=== PATIENT | male | born 1945 | race Caucasian/White ===

== ENCOUNTER 2020-03-14 16:41 | Inpatient (IN) | payer MEDICARE, OTHER, SELFPAY ==
[2020-03-14] VITALS (8 sets, daily range): BP systolic 98–128; BP diastolic 44–89; PULSE 64–79; RESP 17–20; TEMP 36.7–37.9; O2SAT 96–100; BMI 26.8
--- NOTE | ~2020-03-14 | US_ITS ---
EXAMINATION: US venous doppler [facility] EXAM DATE: 03/14/2020 18:23 INDICATION: Left leg pain. TECHNIQUE: Multiple grayscale, color flow and Doppler images of the left lower extremity deep venous system were obtained and reviewed. There is no prior study for comparison. FINDINGS: The left common femoral, femoral and profunda veins demonstrate normal color flow, respirat ory variation, augmentation and compressibility. Compressibility, color flow confirmed within the le ft popliteal, posterior tibial, peroneal, and greater saphenous veins. IMPRESSION: 1. No left lower extremity deep venous thrombosis. Reviewed, dictated and finalized at location A.
--- NOTE | ~2020-03-14 | XR_ITS ---
EXAMINATION: XR ankle LT min 3V EXAM DATE: 03/14/2020 17:17 INDICATION: Initial encounter following injury, with pain of the left ankle. Dog bite. TECHNIQUE: Left ankle frontal, lateral and oblique projections obtained and reviewed. There is no pr ior study for comparison. FINDINGS: The left ankle mortise appears intact. There are no acute fractures or dislocations ident ified. There is no subcutaneous gas. There is soft tissue swelling over the lateral malleolus. There are arterial calcifications, arteriosclerosis. There are no radiopaque foreign bodies. IMPRESSION: 1. Left ankle exam without acute osseous findings. 2. Soft tissue swelling. Reviewed, dictated and finalized at location A.
--- NOTE | 2020-03-14 17:43 | ED.LOWEXIN ---
HPI - Extremity Injury (Lower) General Chief Complaint: Extremity Injury, Lower Stated Complaint: ANKLE PAIN Time Seen by Provider: 03/14/20 16:45 Source: RN notes reviewed History of Present Illness HPI Narrative: Patient presents emergency department from home for left leg pain. Patient has a history dementia his history is per patient and . The patient was at home with his last night the patient got scratched and bit by the dogs in the left lower extremity. This morning the patient's noted the patient was having tenderness and swelling as well as mild erythema of the left lateral ankle patient was unable to stand on the ankle secondary to the pain. She is unsure if she was injured in the episode she states patient is had no fevers or chills numbness or tingling in extremities or any other symptoms. Patient states that does not hurt to move his ankle but hurts when you touch the lateral aspect of the ankle. The patient is up-to-date on his tetanus per the Related Data Home Medications Medication Instructions Recorded Confirmed Eliquis 03/14/20 atorvastatin 40 mg PO HS 03/14/20 donepezil 10 mg PO HS 03/14/20 ketoconazole 1 applic TOPICAL DAILY 03/14/20 memantine 10 mg PO BID 03/14/20 metoprolol succinate 25 mg PO DAILY 03/14/20 sertraline 50 mg PO DAILY 03/14/20 triamcinolone acetonide 1 applic TOPICAL BID 03/14/20 Allergies Allergy/AdvReac Type Severity Reaction Status Date / Time Penicillins Allergy Rash Verified 03/14/20 16:57 Review of Systems Review of Systems: Narrative: Gen.: Denies fevers or chills ENT: Denies congestion Respiratory: Denies shortness of breath or cough CV: Denies chest pain or palpitations GI: Denies abdominal pain nausea, emesis or diarrhea d patient's states the patient's urine has been dark Musculoskeletal: See HPI Neuro: Denies numbness, tingling, weakness or focal weakness Skin: Denies rash Except as documented, all other systems reviewed and negative [facility] Past Medical History Medical History (Updated 03/14/20 @ 18:56 by Brooks Aldana DO) Dementia Hypercholesterolemia Hypertension Social History Social History (Updated 03/14/20 @ 17:44 by Brooks Aldana DO) Smoking status: Former smoker Exam Narrative: Exam Narrative: APPEARANCE: No acute distress, nontoxic, resting in bed EYES: EOMI HEENT: Normocephalic, atraumatic, OMM RESPIRATORY: No respiratory distress Clear to auscultation bilaterally with no rhonchi wheezing or rales. CARDIOVASCULAR: Regular rate and rhythm without murmurs rubs or gallops. ABDOMINAL: Soft, nontender, nondistended, no rebound or guarding MUSCULOSKELETAl: Moves all extremities. No clubbing, cyanosis left lower extremity has several healing puncture wounds over the anterior and lateral lower ruano with mild erythema around the wounds extending down to the lateral ankle, dorsalis pedis pulse 2+, neurovascular intact, patient with no pain with movement of the ankle but tenderness with palpation palpation over the left lateral ankle NEURO: Awake and alert. Following commands, speech normal, no focal deficits SKIN:: Warm, dry. No rashes lesions or abrasions PSYCHIATRIC: Normal affect/mood, Course Course Emergency Course: Reviewed records patient is allergic to penicillin will start on imipenem for coverage at this time Discussed with URMILA Ridley for Dr. Kinney presentation work-up. Agrees with admission at this time Discussed with patient and family results of workup and diagnosis. Discussed need for admission. Patient and family understand and agree to current treatment plan Vital Signs Vital signs: Vital Signs Temperature 99.3 F 03/14/20 17:09 Pulse Rate 72 03/14/20 17:09 Respiratory Rate 18 03/14/20 17:09 Blood Pressure 98/44 L 03/14/20 17:09 Pulse Oximetry 96 03/14/20 17:09 Temperature 98.9 F 03/14/20 17:52 Pulse Rate 79 03/14/20 17:52 Respiratory Rate 18 03/14/20 17:52 B
[2020-03-14 17:48] LABS: Basophils Percent Auto 0.2 % (0.2-1.2); Eosinophils Percent Auto 0.3 % (0-4.4); Hematocrit 37.9 % (42.0-52.0); Hemoglobin 12.3 g/dL (14.0-18.0); Immature Granulocyte Absolute 0.06 K/mm3 (0.00-0.031); Immature Granulocyte Percent A 0.4 % (0-0.5); Lymphocytes Absolute Auto 0.66 K/mm3 (0.9-3.2); Lymphocytes Percent Auto 4.6 % (18.3-44.2); Mean Corpuscular HGB Conc 32.5 g/dl (32-36); Mean Corpuscular Hemoglobin 31.7 pg (26-34); Mean Corpuscular Volume 97.7 fl (80-100); Mean Platelet Volume 10.6 fl (7.4-10.4); Monocytes Absolute Auto 1.2 K/mm3 (0.1-0.6); Monocytes Percent Auto 8.2 % (2.6-8.5); Neutrophils Absolute Auto 12.2 K/mm3 (1.3-6.7); Neutrophils Percent Auto 86.3 % (45.5-73.1); Platelet Count Result 188 k/mm3 (150-375); Red Blood Count 3.88 M/mm3 (4.6-6.20); Red Cell Distribution Width 14.5 % (11.5-14.5); White Blood Count 14.2 K/mm3 (4.5-10.0)
--- NOTE | 2020-03-14 17:53 | PC.NURSE ---
Note patient shaking, feels warm to touch. VS retaken and pt remains afebrile. Preparing to straight cath patient.
[2020-03-14 18:00] LABS: Alanine Aminotransferase 34 U/L (4-50); Albumin Level 4.3 g/dL (3.5-5.1); Alkaline Phosphatase 79 U/L (38-126); Aspartate Amino Transferase 34 U/L (17-59); Bilirubin,Total 3.1 mg/dL (0.2-1.3); Blood Urea Nitrogen 29 mg/dL (9-20); Calcium 9.4 mg/dL (8.4-10.2); Carbon Dioxide 30 mmol/L (22-30); Chloride 100 mmol/L (98-107); Estimated CRCL calculation 59 ml/min; Estimated Glomerular Filt Rate > 60; Glucose 118 mg/dL (75-110); Potassium 4.1 mmol/L (3.4-5.0); Sodium 138 mmol/L (137-145)
[2020-03-14 18:15] LABS: Add Urine Microscopic? NO; Appearance Urine Clear (Clear); Bilirubin Urine Negative (Negative); Blood Urine Negative (Negative); Color Urine Yellow (Yellow); Glucose Urine UA Negative (Negative); Ketones Urine Negative (Negative); Leukocyte Esterase Ur Negative LEU/UL (Negative); Nitrate Urine Negative (Negative); Protein Urine Negative (Negative); Specific Grav Ur 1.026 (1.001-1.035); Urobilinogen Urine Negative mg/dL (<2.0)
[2020-03-14 19:08] LABS: Lactic Acid Reflex 1.8 mmol/L (0.7-2.1)
--- NOTE | 2020-03-14 19:22 | PC.NURSE ---
Antibiotic given. Bedside report to LORENZA Villanueva, to continue care.
--- NOTE | 2020-03-14 19:23 | PC.NURSE ---
Pt felt warm to touch, so a temp was checked by this nurse. MD Aldana aware of 100.3 oral temp, new orders given.
--- NOTE | 2020-03-14 20:31 | PC.NURSE ---
report called and given to accepting nurse around 2014, state states room is being clean will call when room is ready.
--- NOTE | 2020-03-14 20:32 | PC.NURSE ---
Jacquelin medication clarified with for accepting nurse, dose 5mg B.I.D.
--- NOTE | 2020-03-14 21:30 | ADMGEN ---
This patient, Ranjit Pettit, was admitted to 2 Medical Room 257-01. Patient/family oriented to hospital policies and general routines including ID bracelet, bed and alarms, visiting hours, pain management, procedures, bathroom and other care routines, personal items, smoking policy, room service/diet, and visiting hours. Valuables list has been completed. Information on how to activate the Rapid Response Team has been discussed. Patient/Family are encouraged to report perceived risks to care and to ask questions if they do not understand what they are told or what they should do.
[2020-03-14] MEDS: SODIUM CHLORIDE 0.9% IV 1,000 ML 80 ML IV CONT (21:43)
--- NOTE | 2020-03-14 23:16 | PM.IMHP ---
H&P: HPI History of Present Illness Chief complaint: Cellulitis left lower extremity Narrative: Ranjit Pettit is a 74 year old male who lives with his and has a history of dementia. The patient came to the emergency room today due to a dog bite to his left lower extremity. He is having a lot of pain to that left lower leg. His was here in the emergency room and gave most of the information when she was here. The patient has been having tenderness and swelling and mild erythema to the left lower ankle. The patient is unable to stand up and walk at this time. He had no fever chills. He is very confused. He is up-to-date on his tetanus shot. White count was noted to be 15.2. H&H is 12.3 and 37.9. MPV is 10.6. UA was negative. Venous Doppler was negative for DVT. X-ray of the left lower extremity was read by radiologist as left ankle exam without acute osseous findings. Soft tissue swelling. Patient was started on Primaxin. Because he is allergic to penicillins. Date of service 03/14/2020 Review of Systems Review of Systems: All systems reviewed & are unremarkable except as noted in HPI and below ROS unobtainable: Yes unobtainable due to mental status (He has a history of dementia. He is having difficulty answering the questi) Constitutional: Constitutional: Reports as per HPI and Reports no additional constitutional complaints Eyes: Eyes: Reports as per HPI and Reports no additional eye complaints ENT: Reports system reviewed and no additional complaints, except as documented and Reports Normal hearing present Cardiovascular: Cardiovascular: Reports no additional cardiovascular complaints Respiratory: Respiratory: Reports no additional respiratory complaints and Reports no additional respiratory complaints Gastrointestinal: Gastrointestinal: Reports as per HPI and Reports no additional gastrointestinal complaints Musculoskeletal: Musculoskeletal: Reports no additional musculoskeletal complaints Integumentary/Breasts: Skin/Breast: Reports system reviewed and no additional complaints, except as docu and Reports as per HPI Neurologic: Reports system reviewed and no additional complaints, except as documented, Reports as per HPI and Reports Normal hearing present Psychiatric: Psychiatric: Reports no additional psychiatric complaints and Reports as per HPI Endocrine: Endocrine: Reports no additional endocrine complaints Hematologic/Lymphatic: Hematologic/Lymphatic: Reports no additional hematologic/lymphatic complaints Allergic/Immunologic: Allergic/Immunologic: Reports no additional allergic/immunologic complaints [facility] Past Medical History Medical History (Updated 03/14/20 @ 23:25 by Keyana Deal NP) Dementia Hypercholesterolemia Hypertension JACQUELIN on CPAP Surgical History Surgical History (Updated 03/14/20 @ 23:23 by Keyana Deal NP) Status post biventricular cardiac pacemaker insertion Family History Family History Other Unknown family medical history Social History Social History (Updated 03/14/20 @ 23:24 by Keyana Deal NP) Social History: He tells me that he lives with his . She is a durable power bankruptcy attorney for healthcare. He is a full code. He tells me that he has 2 children. He is retired but can't recall when he retired from. Denies any tobacco use or alcohol marijuana or illicit drugs. He is noted to be a full code. Smoking status: Never smoker Alcohol intake: never Substance use: never Gender identity (if verbalized by the patient): Male Spiritual care concerns: No Meds Home Medications and Allergies Home Medications Medication Instructions Recorded Confirmed Type Eliquis 5 mg PO BID 03/14/20 03/14/20 History atorvastatin 40 mg PO HS 03/14/20 03/14/20 History donepezil 10 mg PO HS 03/14/20 03/14/20 History ketoconazole 1 applic TOPICAL DAILY 03/14/20 03/14/20 History memantine 10 mg PO
[2020-03-14] MEDS: MELATONIN 5 MG TABLET PO (23:55)
[2020-03-14] MEDS: DONEPEZIL HCL 10 MG TABLET PO (23:55)
[2020-03-14] MEDS: ATORVASTATIN 40 MG TABLET PO (23:55)
--- NOTE | 2020-03-15 01:32 | PCRCNOTE ---
pt stated that he does use a home unit, but refused use of hospital unit. RT did not place a hospital unit in the room.
[2020-03-15 06:00] VITALS: BP 105/83; PULSE 62; RESP 20; TEMP 36.3; O2SAT 98
[2020-03-15 06:03] LABS: Basophils Percent Auto 0.3 % (0.2-1.2); Eosinophils Percent Auto 0.2 % (0-4.4); Hematocrit 34.2 % (42.0-52.0); Immature Granulocyte Absolute 0.11 K/mm3 (0.00-0.031); Immature Granulocyte Percent A 0.7 % (0-0.5); Lymphocytes Absolute Auto 0.89 K/mm3 (0.9-3.2); Lymphocytes Percent Auto 5.9 % (18.3-44.2); Mean Corpuscular HGB Conc 32.2 g/dl (32-36); Mean Corpuscular Hemoglobin 31.3 pg (26-34); Mean Corpuscular Volume 97.4 fl (80-100); Mean Platelet Volume 10.9 fl (7.4-10.4); Monocytes Absolute Auto 1.3 K/mm3 (0.1-0.6); Monocytes Percent Auto 8.8 % (2.6-8.5); Neutrophils Absolute Auto 12.7 K/mm3 (1.3-6.7); Neutrophils Percent Auto 84.1 % (45.5-73.1); Platelet Count Result 162 k/mm3 (150-375); Red Blood Count 3.51 M/mm3 (4.6-6.20); Red Cell Distribution Width 14.6 % (11.5-14.5); White Blood Count 15.1 K/mm3 (4.5-10.0)
[2020-03-15 06:16] LABS: Blood Urea Nitrogen 31 mg/dL (9-20); Calcium 8.7 mg/dL (8.4-10.2); Carbon Dioxide 28 mmol/L (22-30); Chloride 103 mmol/L (98-107); Estimated CRCL calculation 67 ml/min; Estimated Glomerular Filt Rate > 60; Glucose 117 mg/dL (75-110); Potassium 3.9 mmol/L (3.4-5.0); Sodium 134 mmol/L (137-145)
[2020-03-15 07:53] LABS: CRP 6.8 mg/dL (<1.0)
[2020-03-15] MEDS: MEMANTINE 10 MG TABLET PO ×2 (08:43→17:02)
[2020-03-15] MEDS: APIXABAN 5 MG TABLET PO ×2 (08:43→17:02)
[2020-03-15 08:44] VITALS: PULSE 64
[2020-03-15] MEDS: SERTRALINE HCL 50 MG TABLET PO (08:44)
[2020-03-15] MEDS: METOPROLOL SUCCINATE EXT REL 25 MG TABCR PO (08:44)
[2020-03-15] MEDS: SODIUM CHLORIDE 0.9% IV 1,000 ML 80 ML IV CONT ×2 (10:00→23:20)
--- NOTE | 2020-03-15 13:25 | PM.IMPN ---
Progress Note: A&P Assessment and Plan (1) Cellulitis of left leg: Code(s): L03.116 - Cellulitis of left lower limb Status: Acute Assessment and Plan: Left lower extremity with several small puncture wounds that appear to have scabbed, as well as erythema, edema, warmth, and tenderness. WBC is elevated at 15.1. CRP is elevated at 6.8. He had been febrile with T-max of 100.3?, however has been afebrile today. Initially it was reported that he was unable to bear weight on the left ankle, however he has been evaluated by PT and was able to walk with a wheeled walker. Continue Primaxin, initiated on 03/14. Patient is allergic to penicillins. Continue gentle IV fluids Continue acetaminophen as needed for fever and supportive care. Blood cultures are pending. Continue to monitor vitals, white count, and CRP. Continue PT and OT. Recommendations are appreciated. (2) Hypertension: Code(s): I10 - Essential (primary) hypertension Status: Chronic Assessment and Plan: Blood pressures have been evaluated and stable. Blood pressure today was 105/83. Continue with metoprolol (3) Hypercholesterolemia: Code(s): E78.00 - Pure hypercholesterolemia, unspecified Status: Chronic Assessment and Plan: Continue with Lipitor. (4) JACQUELIN on CPAP: Code(s): G47.33 - Obstructive sleep apnea (adult) (pediatric); Z99.89 - Dependence on other enabling machines and devices Status: Chronic Assessment and Plan: Patient has a history of JACQUELIN and uses CPAP regularly. Continue CPAP titrated to home settings. (5) Dementia: Code(s): F03.90 - Unspecified dementia without behavioral disturbance Status: Chronic Assessment and Plan: Patient has a history of dementia, however it is unclear what his typical baseline is. He lives at home with his . Today he is oriented to self only. He is slow to respond to questions and occasionally answers in a nonsensical manner. Continue with Aricept and Namenda. I attempted to speak to the patient's via phone to establish baseline, but have been able to reach her. Will continue to attempt. Subjective Date/time seen: 03/15/20 13:25 Interval history: Date of service: 03/15/2020 Mr. Pettit reports he is feeling well today. It is difficult to get information from him as he appears very confused. He does have baseline dementia but it is unclear what his typical level of orientation is. Today, he was oriented to self-only. He responded to my questions but occasionally his responses were nonsensical and he is very slow to respond. He could follow all commands. He denies any pain and states he is feeling in his usual state of health, however he did seem to have a painful response to light palpation of his LLE. Review of Systems Review of Systems: ROS unobtainable: Yes unobtainable due to mental status Exam Narrative: Exam Narrative: Mr. Pettit is examined alone today. He is a well nourished 74 year old male who is lying supine in bed. He appears comfortable and is in NARD. HR 64, BP 128/89, RR 20, T 98.1?, 99% on room air Neuro: awake, alert and oriented x1, slow to respond, speech clear, follows all commands, no focal neuro deficits noted HEENMT: normocephalic, atraumatic, EOMI, sclerae anicteric, moist oral mucosa Neck: supple, no lymphadenopathy Respiratory: clear to auscultation bilaterally, normal respiratory effort Cardio: regular rate, regular rhythm, normal S1 and S2 Abdomen: normal to inspection, nondistended, normoactive bowel sounds, soft, nontender : Wearing depends Extremities: LLE is edematous, erythematous, warm to palpation, and tender to light touch. There is a linear excoriation and several small, round, erythematous puncture wounds on the anterior aspect of the ruano. RLE without edema, erythema, or pain to palpation. BUE and BLE with full range of motion and strength 5/5. Dorsa
[2020-03-15 14:00] VITALS: BP 98/57; PULSE 59; RESP 19; TEMP 36.6; O2SAT 100
[2020-03-15] MEDS: FAMOTIDINE 20 MG/2 ML VIAL IV PUSH (21:23)
[2020-03-15] MEDS: DONEPEZIL HCL 10 MG TABLET PO (21:23)
[2020-03-15] MEDS: ATORVASTATIN 40 MG TABLET PO (21:23)
[2020-03-15] MEDS: MELATONIN 5 MG TABLET PO (21:23)
[2020-03-15 22:00] VITALS: BP 103/77; PULSE 70; RESP 20; TEMP 37; O2SAT 99
[2020-03-16 05:19] LABS: Basophils Percent Auto 0.3 % (0.2-1.2); Eosinophils Absolute Auto 0.1 K/mm3 (0-0.3); Eosinophils Percent Auto 0.5 % (0-4.4); Hematocrit 34.4 % (42.0-52.0); Hemoglobin 11.1 g/dL (14.0-18.0); Immature Granulocyte Absolute 0.09 K/mm3 (0.00-0.031); Immature Granulocyte Percent A 0.8 % (0-0.5); Lymphocytes Absolute Auto 0.69 K/mm3 (0.9-3.2); Lymphocytes Percent Auto 6.1 % (18.3-44.2); Mean Corpuscular HGB Conc 32.3 g/dl (32-36); Mean Corpuscular Hemoglobin 31.4 pg (26-34); Mean Corpuscular Volume 97.5 fl (80-100); Mean Platelet Volume 10.6 fl (7.4-10.4); Monocytes Percent Auto 9.1 % (2.6-8.5); Neutrophils Absolute Auto 9.4 K/mm3 (1.3-6.7); Neutrophils Percent Auto 83.2 % (45.5-73.1); Platelet Count Result 168 k/mm3 (150-375); Red Blood Count 3.53 M/mm3 (4.6-6.20); Red Cell Distribution Width 14.6 % (11.5-14.5); White Blood Count 11.3 K/mm3 (4.5-10.0)
[2020-03-16 05:54] LABS: Alanine Aminotransferase 45 U/L (4-50); Albumin Level 3.6 g/dL (3.5-5.1); Alkaline Phosphatase 92 U/L (38-126); Aspartate Amino Transferase 46 U/L (17-59); Bilirubin,Total 2.8 mg/dL (0.2-1.3); Blood Urea Nitrogen 25 mg/dL (9-20); Calcium 8.5 mg/dL (8.4-10.2); Carbon Dioxide 26 mmol/L (22-30); Chloride 103 mmol/L (98-107); Estimated CRCL calculation 85 ml/min; Estimated Glomerular Filt Rate > 60; Glucose 104 mg/dL (75-110); Potassium 3.7 mmol/L (3.4-5.0); Sodium 134 mmol/L (137-145)
[2020-03-16 06:00] VITALS: BP 105/54; PULSE 71; RESP 20; TEMP 36.4; O2SAT 98
[2020-03-16 08:00] VITALS: PULSE 71; RESP 20; O2SAT 98
[2020-03-16] MEDS: FAMOTIDINE 20 MG/2 ML VIAL IV PUSH ×2 (08:48→21:31)
[2020-03-16] MEDS: SODIUM CHLORIDE 0.9% IV 1,000 ML 80 ML IV CONT ×2 (08:51→21:32)
[2020-03-16] MEDS: SERTRALINE HCL 50 MG TABLET PO (08:51)
[2020-03-16] MEDS: METOPROLOL SUCCINATE EXT REL 25 MG TABCR PO (08:51)
[2020-03-16] MEDS: MEMANTINE 10 MG TABLET PO ×2 (08:51→16:34)
[2020-03-16] MEDS: APIXABAN 5 MG TABLET PO ×2 (08:51→16:34)
--- NOTE | 2020-03-16 13:43 | PCOTNOTE ---
Attempted to see patient this pm, however patient was confused and agitated using vulgar language at this time. Pt declined stating, I'm not gonna do it!
[2020-03-16 14:00] VITALS: BP 143/92; PULSE 74; RESP 19; TEMP 36.6; O2SAT 96
--- NOTE | 2020-03-16 16:50 | PM.IMPN ---
Progress Note: A&P Assessment and Plan (1) Cellulitis of left leg: Code(s): L03.116 - Cellulitis of left lower limb Status: Acute Assessment and Plan: Patient was bit by a dog on the left ankle. There are several puncture wounds secondary to the bite which have scabbed. The area is edematous, but much less erythematous and warm. WBC is 11.3. CRP is elevated at 11.0. He had been febrile with T-max of 100.3?, however has been afebrile today. He has good range of motion and is tolerating weight-bearing. Continue Primaxin, initiated on 03/14 given penicillin allergy. Plan to transition to oral doxycycline upon discharge, hopefully tomorrow. Continue gentle IV fluids Continue supportive care including acetaminophen, elevation, and ice. Preliminary blood cultures revealed no growth today. Await final cultures. Continue to monitor vitals, white count, and CRP. (2) Generalized weakness: Code(s): R53.1 - Weakness Status: Acute Assessment and Plan: Patient's reports he had been weakLately, most likely due to deconditioning as they have been stuck at home. initially reported that patient had difficulty with weight-bearing following ankle injury, however patient appears to be tolerating weight-bearing with no difficulty. Continue PT and OT. Recommendations are appreciated. Home health is being set up via care coordination, however there has been some difficulty with placing the referral through patient's PCP. Care coordination will continue to monitor this process. Hopeful discharge tomorrow pending home health arrangement. (3) Hypertension: Code(s): I10 - Essential (primary) hypertension Status: Chronic Assessment and Plan: Blood pressures have been evaluated and stable. Blood pressure today was 103/77. Continue with metoprolol (4) Hypercholesterolemia: Code(s): E78.00 - Pure hypercholesterolemia, unspecified Status: Chronic Assessment and Plan: Continue with Lipitor. (5) JACQUELIN on CPAP: Code(s): G47.33 - Obstructive sleep apnea (adult) (pediatric); Z99.89 - Dependence on other enabling machines and devices Status: Chronic Assessment and Plan: Patient has a history of JACQUELIN and uses CPAP regularly. Continue CPAP titrated to home settings. (6) Dementia: Code(s): F03.90 - Unspecified dementia without behavioral disturbance Status: Chronic Assessment and Plan: Patient has a history of dementia, however it is unclear what his typical baseline is. He lives at home with his . Today he is oriented to self only. He is slow to respond to questions and occasionally answers in a nonsensical manner. I spoke with his via telephone who tells me he is at baseline. Continue with Aricept and Namenda. Subjective Date/time seen: 03/16/20 16:50 Interval history: Date of service: 03/16/2020 Patient reports he is feeling well today and has no acute complaints. He is alert to self only and will respond to questions, although some responses are nonsensical. Per discussion with nursing staff, patient has been ambulating around the room and bearing weight without difficulty. He has been eating well. He has been urinating regularly. He has been sleeping well. He seems to be comfortable and overall, doing well. Review of Systems Review of Systems: Narrative: A 12 point review of systems was reviewed with pertinent positives and negatives as per HPI. Exam Narrative: Exam Narrative: Mr. Pettit is examined alone today. He is a well nourished 74 year old male who is sitting in the chair by the bedside. He appears comfortable and is in NARD. HR 70, BP 103/77, RR 20, T 98.6?, 99% on room air Neuro: awake, alert and oriented x1, slow to respond, speech clear, follows all commands, no focal neuro deficits noted HEENMT: normocephalic, atraumatic, EOMI, sclerae anicteric, moist ora
[2020-03-16] MEDS: ATORVASTATIN 40 MG TABLET PO (21:31)
[2020-03-16] MEDS: MELATONIN 5 MG TABLET PO (21:31)
[2020-03-16] MEDS: DONEPEZIL HCL 10 MG TABLET PO (21:31)
[2020-03-16 22:00] VITALS: BP 113/60; PULSE 66; RESP 21; TEMP 36.4; O2SAT 100
[2020-03-16 22:12] VITALS: PULSE 61; RESP 18; O2SAT 95
[2020-03-17 02:45] VITALS: PULSE 63; RESP 16; O2SAT 94
[2020-03-17 04:50] LABS: Basophils Percent Auto 0.3 % (0.2-1.2); Eosinophils Percent Auto 0.3 % (0-4.4); Hemoglobin 11.1 g/dL (14.0-18.0); Immature Granulocyte Absolute 0.04 K/mm3 (0.00-0.031); Immature Granulocyte Percent A 0.4 % (0-0.5); Lymphocytes Absolute Auto 0.67 K/mm3 (0.9-3.2); Lymphocytes Percent Auto 6.9 % (18.3-44.2); Mean Corpuscular HGB Conc 32.6 g/dl (32-36); Mean Corpuscular Hemoglobin 31.2 pg (26-34); Mean Corpuscular Volume 95.5 fl (80-100); Mean Platelet Volume 10.7 fl (7.4-10.4); Monocytes Absolute Auto 0.9 K/mm3 (0.1-0.6); Monocytes Percent Auto 8.7 % (2.6-8.5); Neutrophils Absolute Auto 8.2 K/mm3 (1.3-6.7); Neutrophils Percent Auto 83.4 % (45.5-73.1); Platelet Count Result 182 k/mm3 (150-375); Red Blood Count 3.56 M/mm3 (4.6-6.20); Red Cell Distribution Width 14.3 % (11.5-14.5); White Blood Count 9.8 K/mm3 (4.5-10.0)
[2020-03-17 05:08] LABS: Alanine Aminotransferase 38 U/L (4-50); Albumin Level 3.6 g/dL (3.5-5.1); Alkaline Phosphatase 93 U/L (38-126); Aspartate Amino Transferase 35 U/L (17-59); Bilirubin,Total 2.2 mg/dL (0.2-1.3); Blood Urea Nitrogen 18 mg/dL (9-20); CRP 6.4 mg/dL (<1.0); Calcium 8.5 mg/dL (8.4-10.2); Carbon Dioxide 25 mmol/L (22-30); Chloride 104 mmol/L (98-107); Estimated CRCL calculation 85 ml/min; Estimated Glomerular Filt Rate > 60; Glucose 117 mg/dL (75-110); Potassium 3.6 mmol/L (3.4-5.0); Sodium 134 mmol/L (137-145)
[2020-03-17 06:00] VITALS: BP 105/70; PULSE 62; RESP 20; TEMP 36.3; O2SAT 98
[2020-03-17 08:00] VITALS: PULSE 62; RESP 20; O2SAT 98
[2020-03-17] MEDS: FAMOTIDINE 20 MG/2 ML VIAL IV PUSH (08:11)
[2020-03-17] MEDS: MEMANTINE 10 MG TABLET PO (08:11)
[2020-03-17] MEDS: METOPROLOL SUCCINATE EXT REL 25 MG TABCR PO (08:11)
[2020-03-17] MEDS: APIXABAN 5 MG TABLET PO (08:11)
[2020-03-17] MEDS: SERTRALINE HCL 50 MG TABLET PO (08:11)
[2020-03-17] MEDS: SODIUM CHLORIDE 0.9% IV 1,000 ML 80 ML IV CONT (08:11)
--- NOTE | 2020-03-17 10:55 | PCOTNOTE ---
Attempted to see patient this am, however patient sleeping upon entering. Pt aroused and speaking non-sense then closed eyes and fell back asleep.
[2020-03-17] MEDS: ACETAMINOPHEN 325 MG TABLET 650 MG PO (13:41)
[2020-03-17 14:00] VITALS: BP 115/46; PULSE 88; RESP 18; TEMP 36.7; O2SAT 99
--- NOTE | 2020-03-17 14:11 | PM.DS ---
DS: Admitting Diagnosis Admitting Diagnosis Admitting Diagnosis: Cellulitis of left lower limb DS: Discharge Diagnosis Discharge Diagnosis (1) Cellulitis of left leg: Code(s): L03.116 - Cellulitis of left lower limb Status: Acute Assessment and Plan: Patient was bit by a dog on the left ankle. He was initiated on Primaxin given his penicillin allergy. His exam improved with noticeable reduction in edema, erythema and warmth. He had good range of motion and was able to tolerate weight-bearing. Fever and leukocytosis resolved. CRP improved. Preliminary blood cultures revealed NGTD and final cultures will be monitored. He will continue doxycycline as an outpatient to complete 10 days of antibiotic therapy. Patient was up-to-date on tetanus vaccine. (2) Generalized weakness: Code(s): R53.1 - Weakness Status: Acute Assessment and Plan: The patient's reported patient had become weaker lately, most likely related to deconditioning as he had been stuck at home during [employer]. He is evaluated by PT and OT and home health was recommended. Care coordination contacted [facility]'s PCP at the [facility] and this will be set up as an outpatient. (3) Hypertension: Code(s): I10 - Essential (primary) hypertension Status: Chronic Assessment and Plan: His blood pressures remain stable on his home dose of metoprolol. (4) Hypercholesterolemia: Code(s): E78.00 - Pure hypercholesterolemia, unspecified Status: Chronic Assessment and Plan: He will continue atorvastatin as an outpatient. (5) JACQUELIN on CPAP: Code(s): G47.33 - Obstructive sleep apnea (adult) (pediatric); Z99.89 - Dependence on other enabling machines and devices Status: Chronic Assessment and Plan: He used CPAP titrated to his home settings during his stay. He should continue using CPAP regularly as an outpatient. (6) Dementia: Code(s): F03.90 - Unspecified dementia without behavioral disturbance Status: Chronic Assessment and Plan: Per patient's , patient is typically oriented to self only, although he does have some fluctuations in his mental status. Patient remained at baseline during his stay. He will continue donepezil and memantine as an outpatient. DS: Summary Hospital Course Reason for hospitalization: Left ankle pain Hospital Course: Date of admission: 03/14/2020 Date of discharge: 03/17/2020 Ranjit Pettit is a 74-year-old male with a past medical history significant for hypertension, obstructive sleep apnea, and dementia who presented to the emergency department on 03/14/2020 with complaints of ankle pain after being bitten by his dog at home on 03/13/2020. Following the dog bite, the patient's noticed that he was having significant tenderness and swelling to his left ankle. The patient denied fever, chills, nausea, vomiting, numbness, or tingling to the area. His reported he was having some difficulty bearing weight on the extremity. At presentation, vitals were stable with the exception of fever with T-max 100.3?, WBC 14.2, ankle x-ray with no acute osseous findings and soft tissue swelling noted, and venous Doppler negative for DVT. He was admitted to the hospitalist service and was treated with IV antibiotics. The patient's exam improved significantly as did his labs. His pain resolved. He was evaluated by PT and OT given his pain with weight-bearing. Patient was able to bear weight, however home health was recommended given patient's generalized weakness. Given improvement in patient's symptoms, he was determined to no longer require inpatient care. He was transitioned to oral antibiotics which he will continue to complete a 10 day course. He was recommended to follow-up with his PCP in 1-2 weeks. He was educated on worrisome signs and symptoms for which to return. He was discharged home in hemodynamically stable condition
== END 2020-03-17 15:54 | disposition home health service (06) | DRG 603 ==
LOC: ANHED 18:56 → ANH2MED 19:48
PROVIDERS: Physician Assistant; Admitting Provider Family Medicine; Emergency Provider Emergency Medicine; Visit Provider Internal Medicine
DX: L03.116 Cellulitis of left lower limb (principal); S81.852A Open bite, left lower leg, initial encounter; W54.0XXA Bitten by dog, initial encounter; G47.33 Obstructive sleep apnea (adult) (pediatric); I10 Essential (primary) hypertension; E78.00 Pure hypercholesterolemia, unspecified; F03.90 Unspecified dementia, unspecified severity, without behavioral disturbance, psychotic disturbance, mood disturbance, and anxiety; Z79.01 Long term (current) use of anticoagulants
CPT/HCPCS: 36415; 51701; 73610; 80048; 80053; 81003; 83605; 85025; 86140; 87040; 93971; 96361; 96365; 96375; 97110; 97116; 97162; 97165; 97530; 97535; 99285; A9270; G0378; J0131; J0743; J7030

== ENCOUNTER 2020-07-16 19:29 | Emergency (ER) | payer MEDICARE, OTHER, SELFPAY ==
[2020-07-16] VITALS (9 sets, daily range): BP systolic 98–118; BP diastolic 54–81; PULSE 65–88; RESP 12–23; TEMP 36.2; O2SAT 73–100
--- NOTE | ~2020-07-16 | XR_ITS ---
XR chest 2V DATE: 07/16/2020 20:25 INDICATION: Lower extremity edema TECHNIQUE: AP and lateral views COMPARISON: None FINDINGS: Borderline heart size. Left-sided pacemaker device with leads overlying right atrium and ri ght ventricle. No hilar or mediastinal enlargement. There is mild atelectasis at the posterior lung bases at the lower lobes. The lungs are otherwise sunny ar. No pleural effusion or pulmonary vascular congestion or pneumothorax. IMPRESSION: Mild bibasilar lower lobe atelectasis Reviewed, dictated and finalized at location A.
--- NOTE | 2020-07-16 19:39 | ED.LOWEXIN ---
HPI - Extremity Injury (Lower) General Chief Complaint: Extremity Injury, Lower Stated Complaint: swollen legs Time Seen by Provider: 07/16/20 19:35 History of Present Illness HPI Narrative: 74 yo male w/ h/o a-fib, htn, presnets to the ED for LE swelling. He has had BLE swelling for several days. Initially just in the feet, now moving up the legs. His states that the feet and legs also appear to be more red. He denies any pain, but they are tender. He had the bilateral first toe toe nails removed 1 month ago and they are still not healed. He has never had this type of swelling before. No fever, chills, chest pain, SOB. Related Data Home Medications Medication Instructions Recorded Confirmed Eliquis 5 mg PO BID 03/14/20 03/14/20 atorvastatin 40 mg PO HS 03/14/20 03/14/20 donepezil 10 mg PO HS 03/14/20 03/14/20 ketoconazole 1 applic TOPICAL DAILY 03/14/20 03/14/20 memantine 10 mg PO BID 03/14/20 03/14/20 metoprolol succinate 25 mg PO DAILY 03/14/20 03/14/20 sertraline 50 mg PO DAILY 03/14/20 03/14/20 triamcinolone acetonide 1 applic TOPICAL BID 03/14/20 03/14/20 Allergies Allergy/AdvReac Type Severity Reaction Status Date / Time Penicillins Allergy Rash Verified 07/16/20 19:47 Review of Systems Review of Systems: All systems reviewed & are unremarkable except as noted in HPI and below Constitutional: Constitutional: Denies chills, Denies fever(s) and Denies weakness Cardiovascular: Cardiovascular: Denies chest pain Respiratory: Respiratory: Denies dyspnea Gastrointestinal: Gastrointestinal: Denies nausea Musculoskeletal: Musculoskeletal: Denies back pain Neurologic: Denies dizziness and Denies weakness PMFSH Past Medical History Medical History Dementia Hypercholesterolemia Hypertension JACQUELIN on CPAP Surgical History Surgical History Status post biventricular cardiac pacemaker insertion Family History Family History Other Unknown family medical history Social History Social History Social History: He tells me that he lives with his . She is a durable power set up inspector for healthcare. He is a full code. He tells me that he has 2 children. He is retired but can't recall when he retired from. Denies any tobacco use or alcohol marijuana or illicit drugs. He is noted to be a full code. Smoking status: Never smoker Alcohol intake: never Substance use: never Gender identity (if verbalized by the patient): Male Spiritual care concerns: No Exam Const: General: healthy appearing, no acute distress and alert Orientation/consciousness: patient oriented x3 HENMT: Head: normal to inspection Neck: Neck: normal visual inspection and no lymphadenopathy Chest: Chest palpation & inspection: no tenderness Resp: Effort & Inspection: normal respiratory effort Auscultation: clear to auscultation bilaterally, no rales, no rhonchi and no wheezes Cardio: Jugular venous distension: no JVD Rate: regular rate Rhythm: regular rhythm Heart sounds: no murmurs Other: weakly dopplerable bilateral PT pulses GI: Inspection: non-distended GI Palp: Yes Soft to palpation and No Tenderness to palpation present (GI) Skin: Other: Healing wounds to bilateral first toe nail beds with Mild erythema and tenderness of adjacent skin. Minimal posterior erythema of the bilateral lower legs. Neuro: General: patient oriented x3, moves all extremities and CN's II-XI intact bilaterally Speech: normal speech Extrem: Other: 2+ bilateral foot and ankle edema Psych: Appearance: well kempt Affect: normal affect Course Vital Signs Vital signs: Vital Signs Temperature 36.2 C L 07/16/20 19:31 Pulse Rate 71 07/16/20 19:31 Respiratory Rate 18 07/16/20 19:31 Blood Pressure 118/7
--- NOTE | 2020-07-16 19:52 | ECG_ITS ---
Measurements Intervals [place] Rate: 59 P: 206 NM: 75 QRS: -73 QRSD: 122 T: 93 QT: 513 QTc: 509 Interpretive Statements ELECTRONIC VENTRICULAR PACEMAKER WITH INHIBTION NO FURTHER INTERPRETATION IS POSSIBLE ATYPICAL ECG Electronically Signed On 07-17-2020 6:52:04 CDT by Monty Palumbo D.O.
[2020-07-16 20:15] LABS: Basophils Percent Auto 0.6 % (0.2-1.2); Eosinophils Absolute Auto 0.1 K/mm3 (0-0.3); Eosinophils Percent Auto 1.6 % (0-4.4); Hematocrit 38.3 % (42.0-52.0); Hemoglobin 12.1 g/dL (14.0-18.0); Immature Granulocyte Absolute 0.02 K/mm3 (0.00-0.031); Immature Granulocyte Percent A 0.3 % (0-0.5); Lymphocytes Percent Auto 17.2 % (18.3-44.2); Mean Corpuscular HGB Conc 31.6 g/dl (32-36); Mean Corpuscular Volume 98.2 fl (80-100); Mean Platelet Volume 11.6 fl (7.4-10.4); Monocytes Absolute Auto 0.5 K/mm3 (0.1-0.6); Monocytes Percent Auto 7.4 % (2.6-8.5); Neutrophils Absolute Auto 5.1 K/mm3 (1.3-6.7); Neutrophils Percent Auto 72.9 % (45.5-73.1); Platelet Count Result 159 k/mm3 (150-375); Red Cell Distribution Width 15.4 % (11.5-14.5)
[2020-07-16 20:25] LABS: Anion Gap 13 mmol/L (8-16); Blood Urea Nitrogen 29 mg/dL (9-20); Calcium 9.2 mg/dL (8.4-10.2); Carbon Dioxide 25 mmol/L (22-30); Chloride 103 mmol/L (98-107); Estimated Glomerular Filt Rate > 60; Glucose 91 mg/dL (75-110); Potassium 4.7 mmol/L (3.4-5.0); Sodium 141 mmol/L (137-145)
[2020-07-16 20:27] LABS: INR 1.1; Prothrombin Time 14.2 Seconds (11.1-14.7)
[2020-07-16 20:28] LABS: Partial Thromboplastin Time 30.3 SECONDS (22.3-36.8)
[2020-07-16 20:47] LABS: NT Pro B Type Natriuretic Pept 2780 PG/ML (5-100); Troponin I 0.053 ng/mL (0.000-0.034)
[2020-07-16] MEDS: FUROSEMIDE INJ 40 MG/4 ML VIAL IV PUSH (21:21)
[2020-07-16 22:47] LABS: Troponin I 0.038 ng/mL (0.000-0.034)
== END 2020-07-16 22:55 | disposition home or self-care (01) ==
PROVIDERS: Emergency Provider Emergency Medicine
DX: L03.116 Cellulitis of left lower limb (principal); L03.115 Cellulitis of right lower limb; R60.0 Localized edema; I48.91 Unspecified atrial fibrillation; Z79.01 Long term (current) use of anticoagulants; I10 Essential (primary) hypertension; F03.90 Unspecified dementia, unspecified severity, without behavioral disturbance, psychotic disturbance, mood disturbance, and anxiety; G47.33 Obstructive sleep apnea (adult) (pediatric); E78.00 Pure hypercholesterolemia, unspecified; Z95.0 Presence of cardiac pacemaker
CPT/HCPCS: 36415; 71046; 80048; 83880; 84484; 85025; 85610; 85730; 93005; 96365; 96375; 99284; J0690; J1940

== ENCOUNTER 2020-09-07 09:59 | Inpatient (IN) | payer OTHER, MEDICARE, SELFPAY ==
[2020-09-07] VITALS (13 sets, daily range): BP systolic 92–135; BP diastolic 51–60; PULSE 60–78; RESP 12–18; TEMP 36–37.2; O2SAT 91–99; BMI 28.3
--- NOTE | 2020-09-07 | ECHO_ITS ---
Patient Info Name: Ranijt Pettit Age: 75 years : 1945 Gender: Male Ht: 72 in Wt: 184 lbs BSA: 2.07 m2 HR: 72 bpm BP: 135 / 57 mmHg Heart Rhythm: Atrial Fibrillation Technical Quality: Good Exam Date: 09/07/2020 3:29 PM Exam Location: [facility] Pulmonary Exam Room: 257 Patient Status: Outpatient Admit Date: 09/07/2020 Staff Ordering Physician: Keyana Deal NP Barber Stylist: Zhanna Yates RDCS Attending Provider: Yoan Pérez MD Referring Physician: Toyin MATTHEWS; Exam Type: CA echo doppler color flow Study Info Indications - PPM S/P FALL PULM EDEMA Complete two-dimensional, color flow and Doppler transthoracic echocardiogram is performed. Summary 1. Left ventricular systolic function is normal, estimated at 65-70%. 2. There is moderately increased left ventricular wall thickness. 3. The left ventricular diastolic function is grade II diastolic dysfunction. 4. Right atrial chamber dimension is moderately enlarged. 5. There is mild mitral valve regurgitation. 6. There is no aortic valve stenosis. 7. There is mild tricuspid valve regurgitation. 8. Mild pulmonary hypertension, estimated pulmonary arterial systolic pressure is 40 mmHg. 9. Normal inferior vena cava with <50% collapse upon inspiration consistent with elevated right atrial pressure, 10 mmHg. Left Ventricle Left ventricular chamber dimension is normal. Left ventricular systolic function is normal, estimated at 65-70%. There is moderately increased left ventricular wall thickness. The left ventricular diastolic function is grade II diastolic dysfunction. Right Ventricle Right ventricular chamber dimension is normal. Right ventricular systolic function is normal. Linear artifact in right ventricle suggestive of catheter(s), pacemaker lead(s), or ICD lead(s). Left Atria Left atrial chamber dimension is mildly enlarged. Right Atria Right atrial chamber dimension is moderately enlarged. Linear artifact in the right atrium suggestive of catheter(s), pacemaker lead(s), or ICD lead(s). Aortic Valve The aortic valve is trileaflet. There is mild aortic valve sclerosis. There is no aortic valve stenosis. There is no aortic valve regurgitation. Pulmonic Valve The pulmonic valve is normal. There is trace pulmonic regurgitation. Mitral Valve The mitral valve has normal leaflets. There is mild mitral valve regurgitation. Tricuspid Valve The tricuspid valve leaflets are normal. There is mild tricuspid valve regurgitation. Mild pulmonary hypertension, estimated pulmonary arterial systolic pressure is 40 mmHg. Pericardium/Pleural The pericardium appears normal. There is no pericardial effusion. Inferior Vena Cava Normal inferior vena cava with <50% collapse upon inspiration consistent with elevated right atrial pressure, 10 mmHg. Aorta The aortic root size at the sinus of Valsalva is normal. Left Ventricular Outflow Tract Name Value Normal LVOT 2D LVOT Diameter 2.1 cm LVOT Doppler LVOT Peak Gradient 3 mmHg LVOT Mean Gradient 2 mmHg
--- NOTE | ~2020-09-07 | XR_ITS ---
EXAMINATION: XR abdomen obstructive series DATE: 09/07/2020 11:29 INDICATION: Abdominal distention and vomiting TECHNIQUE: Supine and upright views of the abdomen. FINDINGS: No prior studies for comparison. The visualized lung parenchyma is normal.. There is a nonobstructive bowel gas pattern. Gas and stool are seen throughout the colon to the level of the rectum. There is no free air. There is pacemaker leads in expected position. There is a left hip arthroplasty. Moderate osteoarthritis of the right hi p. IMPRESSION: 1. No acute abdominal abnormality. Reviewed, dictated and finalized at location B. AL MEDIA INTERN
--- NOTE | ~2020-09-07 | CT_ITS ---
EXAMINATION: CT brain wo con, CT cervical spine wo con EXAM DATE: 09/07/2020 11:07 INDICATION: Head injury, vomiting . TECHNIQUE: Spiral CT of the head was performed without contrast. Axial, coronal and sagittal images were reviewed. Spiral CT of the cervical spine was performed without contrast. Axial images were rev iewed. Coronal and sagittal reformatted images were also reviewed. The dose-length product (DLP) fo r this examination was 605.33 (accession [id number]), 427.49 (accession [id number]) mGy-cm. The exposure was tailored according to patient size, and iterative reconstruction (ASIR) was used as additional dose reduction technique. There is no prior study for comparison. FINDINGS: HEAD CT: There is no acute intraparenchymal hemorrhage. No evidence of intraparenchymal brain mass l esion. No evidence of acute infarction. There is moderate periventricular and subcortical hypodensit y, nonspecific but probably related to small vessel ischemic disease. There is prominence of the robertson lci and ventricles related to cerebral atrophy. There is intracranial carotid arteriosclerosis. T here is no mass effect or midline shift. There is no obstructive hydrocephalus suspected. There are no extra-axial collections. There are no acute calvarial fractures. Patient has had bilateral ocula r lens surgery. Soft tissue is unremarkable. The visualized sinuses and mastoid air cells are well aerated. CERVICAL CT: Pacemaker/AICD device. There is no evidence of acute cervical fracture. The odontoid pr ocess is intact. Pre-dens space is normal. Prevertebral soft tissue is normal. There are no soft t issue abnormalities identified. There is no disc space widening or traumatic vertebral body subluxat ion suspected. Moderate to severe loss of the C4-C6 disc heights. Overall moderate cervical arthropa thy. A detailed level by level evaluation of spondylosis can be added as addendum if requested. IMPRESSION: 1. No acute intracranial findings or cervical fracture. 2. Age-related intracranial findings. 3. Cervical spondylosis. Reviewed, dictated and finalized at location A. LY CHAIN BUSINESS ANALYST IMPRESSION: 1. No acute intracranial findings or cervical fracture. 2. Age-related intracranial findings. 3. Cervical spondylosis.
--- NOTE | ~2020-09-07 | XR_ITS ---
EXAMINATION: XR chest 2V EXAM DATE: 09/07/2020 11:29 INDICATION: fall, weakness TECHNIQUE: Frontal and lateral projections of the chest obtained and reviewed. Comparison is made to prior examination from 07/16/2020. FINDINGS: There is a dual lead pacemaker/AICD seen with leads projecting over the expected locations of the right atrial appendage and right ventricle. Mild cardiomegaly. Possible development of ill-defined bilateral edema or infection. No pneumothorax or pleural effusion. IMPRESSION: Possible developing bilateral infection or edema. Please clinically correlate. Reviewed, dictated and finalized at location A. INTMENT MANAGER
--- NOTE | ~2020-09-07 | XR_ITS ---
EXAMINATION: XR hip BI 2V w AP pelvis EXAM DATE: 09/07/2020 11:29 INDICATION: Fall, bilateral hip pain. TECHNIQUE: Each hip imaged independently (separate right and also left hip) 'frog leg' and frontal p rojections for interpretation. Frontal projection pelvis. There is no prior study for comparison. FINDINGS: There is intact left hip arthroplasty. No evidence of right hip avascular necrosis. There i s moderate right hip primary osteoarthritis. There are arterial calcifications, arteriosclerosis. The re are no acute fractures identified. IMPRESSION: 1. No acute pelvic, hip findings. 2. Moderate right hip osteoarthritis. 3. Intact left hip arthroplasty. Reviewed, dictated and finalized at location A. ING SUPERVISOR
--- NOTE | 2020-09-07 10:51 | ECG_ITS ---
Measurements Intervals [place] Rate: 69 P: 151 WI: 293 QRS: -1 QRSD: 126 T: -66 QT: 439 QTc: 473 Interpretive Statements ELECTRONIC ATRIAL PACEMAKER RIGHT BUNDLE BRANCH BLOCK BASELINE ARTIFACT- I, III, AVR, AVL, AVF, V3 ABNORMAL ECG Electronically Signed On 09-07-2020 11:13:27 SOLUTION ENGINEER by Monty Palumbo D.O.
--- NOTE | 2020-09-07 10:52 | ED.HEATRA ---
HPI - Head Injury General Chief complaint: Head Injury Stated complaint: Vomiting Time Seen by Provider: 09/07/20 10:09 Source: patient and family Mode of arrival: EMS Limitations: dementia History of Present Illness HPI Narrative: This is a 75 year old male that presents to the ER via EMS for a fall sometime in the night. Patient has history of dementia, so history was given by . reports she left him in a different bed around 3 AM because there was no room for her. Reports when she came into the room around 8 this morning he had fallen out of bed and was wedged between the bed and the nightstand. Reports he had dried blood around his mouth and on his chest. Reports since he has been more lethargic than normal. Patient currently does not have any complaints. Denies chest pain, neck pain, back pain, shortness of breath, abdominal pain, or dysuria. Related Data Home Medications Medication Instructions Recorded Confirmed Eliquis 5 mg PO BID 03/14/20 03/14/20 atorvastatin 40 mg PO HS 03/14/20 03/14/20 donepezil 10 mg PO HS 03/14/20 03/14/20 ketoconazole 1 applic TOPICAL DAILY 03/14/20 03/14/20 memantine 10 mg PO BID 03/14/20 03/14/20 metoprolol succinate 25 mg PO DAILY 03/14/20 03/14/20 sertraline 100 mg PO HS 03/14/20 03/14/20 triamcinolone acetonide 1 applic TOPICAL BID 03/14/20 03/14/20 aspirin 81 mg PO DAILY 09/07/20 trazodone 50 09/07/20 Allergies Allergy/AdvReac Type Severity Reaction Status Date / Time Penicillins Allergy Rash Verified 09/07/20 10:38 Review of Systems Review of Systems: Narrative: Limited due to dementia: CONSTITUTIONAL: Denies fever CARDIOVASCULAR: Denies chest pain RESPIRATORY: Denies dyspnea. GASTROINTESTINAL: Denies abdominal pain GENITOURINARY: Denies dysuria MUSCULOSKELETAL: Denies back pain [facility] Past Medical History Medical History Dementia Hypercholesterolemia Hypertension JACQUELIN on CPAP Surgical History Surgical History Status post biventricular cardiac pacemaker insertion Family History Family History Other Unknown family medical history Social History Social History Social History: He tells me that he lives with his . She is a durable power safety specialist for healthcare. He is a full code. He tells me that he has 2 children. He is retired but can't recall when he retired from. Denies any tobacco use or alcohol marijuana or illicit drugs. He is noted to be a full code. Smoking status: Never smoker Alcohol intake: never Substance use: never Gender identity (if verbalized by the patient): Male Spiritual care concerns: No Exam Narrative: Exam Narrative: GENERAL: Elderly, well-nourished, and in no acute distress. HEAD: Normocephalic, atraumatic. EYES: PERRLA and EOMI. ENT: Nares clear, no rhinorrhea or epistaxis. Mucous membranes moist. Oropharynx without tonsillar hypertrophy exudate or other lesions. Appears patient might have bitten the inside of his cheeks. Bilateral TMs pearly keane non-bulging NECK: Supple. No adenopathy or masses. No midline spinal tenderness CHEST: Clear to auscultation. No respiratory distress. No wheezes rales or rhonchi HEART: Regular rate and rhythm. No murmur heard. Normal peripheral pulses. ABDOMEN: Soft, nontender, nondistended, normal active bowel sounds. BACK: No midline spinal tenderness EXTREMITIES: Normal range of motion. No edema or obvious deformity. Strength equal in bilateral upper and lower extremities (5/5) SKIN: Warm, dry, no rash. NEURO: No focal deficits. Alert and oriented x1. CN II-XII grossly intact PSYCH: Normal mood and affect Course Consultations Consultation #1: Spoke with hospitalist about patient and work-up who accepts admission Date: 09/07/20 Time: 12:54 Vital
[2020-09-07 11:00] LABS: Basophils Percent Auto 0.3 % (0.2-1.2); Eosinophils Percent Auto 0.1 % (0-4.4); Hematocrit 36.3 % (42.0-52.0); Hemoglobin 11.5 g/dL (14.0-18.0); Immature Granulocyte Absolute 0.06 K/mm3 (0.00-0.031); Immature Granulocyte Percent A 0.4 % (0-0.5); Lymphocytes Absolute Auto 0.48 K/mm3 (0.9-3.2); Lymphocytes Percent Auto 3.5 % (18.3-44.2); Mean Corpuscular HGB Conc 31.7 g/dl (32-36); Mean Corpuscular Hemoglobin 31.1 pg (26-34); Mean Corpuscular Volume 98.1 fl (80-100); Mean Platelet Volume 10.1 fl (7.4-10.4); Monocytes Percent Auto 7.3 % (2.6-8.5); Neutrophils Percent Auto 88.4 % (45.5-73.1); Platelet Count Result 212 k/mm3 (150-375); Red Cell Distribution Width 14.6 % (11.5-14.5); White Blood Count 13.5 K/mm3 (4.5-10.0)
[2020-09-07 11:11] LABS: INR 1.1; Lactic Acid Reflex 2.2 mmol/L (0.7-2.1); Prothrombin Time 14.8 Seconds (11.1-14.7)
[2020-09-07 11:12] LABS: Partial Thromboplastin Time 26.9 SECONDS (22.3-36.8)
[2020-09-07 11:15] LABS: Alanine Aminotransferase 40 U/L (4-50); Albumin Level 4.1 g/dL (3.5-5.1); Alkaline Phosphatase 114 U/L (38-126); Anion Gap 8 mmol/L (8-16); Aspartate Amino Transferase 63 U/L (17-59); Blood Urea Nitrogen 31 mg/dL (9-20); CRP 0.6 mg/dL (<1.0); Calcium 9.2 mg/dL (8.4-10.2); Carbon Dioxide 30 mmol/L (22-30); Chloride 101 mmol/L (98-107); Creatine Kinase 1334 U/L (55-170); Estimated CRCL calculation 60 ml/min; Estimated Glomerular Filt Rate > 60; Glucose 107 mg/dL (75-110); Lipase 92 U/L (23-300); Magnesium 1.9 mg/dL (1.6-2.3); Potassium 3.9 mmol/L (3.4-5.0); Sodium 139 mmol/L (137-145)
[2020-09-07 11:59] LABS: Add Urine Microscopic? NO; Appearance Urine Clear (Clear); Bilirubin Urine Negative (Negative); Blood Urine Negative (Negative); Color Urine Yellow (Yellow); Glucose Urine UA Negative (Negative); Ketones Urine Negative (Negative); Leukocyte Esterase Ur Negative LEU/UL (Negative); Nitrate Urine Negative (Negative); Protein Urine Negative (Negative); Specific Grav Ur 1.023 (1.001-1.035); Urobilinogen Urine Negative mg/dL (<2.0)
[2020-09-07 12:04] LABS: NT Pro B Type Natriuretic Pept 1920 PG/ML (5-100)
[2020-09-07] MEDS: SODIUM CHLORIDE 0.9% IV 1,000 ML 999 ML IV CONT (12:29)
--- NOTE | 2020-09-07 13:40 | ADMGEN ---
This patient, Ranjit Pettit, was admitted to Medical Room 257-01. Patient/family oriented to hospital policies and general routines including ID bracelet, bed and alarms, visiting hours, pain management, procedures, bathroom and other care routines, personal items, smoking policy, room service/diet, and visiting hours. Information on how to activate the Rapid Response Team has been discussed. Patient/Family are encouraged to report perceived risks to care and to ask questions if they do not understand what they are told or what they should do.
[2020-09-07 13:58] LABS: Reflex Lactic Acid Yes or No Add Lactic
[2020-09-07 14:32] LABS: Lactic Acid 1.6 mmol/L (0.7-2.1)
--- NOTE | 2020-09-07 14:37 | PM.IMHP ---
H&P: HPI History of Present Illness Date/Time: 09/07/20 14:37 Chief complaint: rhabdomyolysis Narrative: Ranjit Pettit is a 75 year old male Who has a history of dementia and lives with his family members. The was at his bedside in the emergency room. The stated that the came to bed late last night and was having difficulty getting into the bed. When he finally got in the bed he was lying on her side of the bed so she decided to get up out of bed about 3:00 a.m. this morning. Around 7:00 a.m. this morning she went to check on the patient and he had been willing on the floor with vomit that was light brown. No blood was noted in his emesis. The patient had been stuck between the bed and the nightstand. It took 3 people to get the patient up off the floor and the called his primary care doctor who suggested that the patient be taken to ER by the ambulance. The patient was unable to answer questions for me at this time. The is answering questions. Hip and pelvis x-ray X-ray was read as no acute pelvic hip findings, Moderate right hip osteoarthritis, and intact left hit with a stick. Abdominal x-ray no acute abdominal abnormality. Chest x-ray was read as possible developing bilateral infection her edema. Head CT was read as no acute intracranial findings or cervical fracture. Age-related intracranial findings. Cervical spine CT was read as no acute intracranial finding or cervical fracture. Age-related intracranial findings. Cervical spondylosis. Patient's lactic initially was 2.2 is now 1.6. His total creatinine kinase is 1334 and his BNP is 1920. The patient recently had a pacemaker placed about 3 weeks ago and that had been interrogated in the emergency room. It was reported as being normal. His chest x-ray was read as possible developing bilateral infection or edema. According to the the patient was checked for COVID-19 about 3 weeks ago prior to having his pacemaker placed. He has not had any fever and he is always cold and has chills. Pacemaker site to left upper chest appears to be without signs and symptoms of infection. The patient was given IV . he is being admitted for rhabdomyolysis. Patient is being admitted to observation status on date of service of 09/07/2020. Review of Systems Review of Systems: Narrative: the patient has Alzheimer's dementia the is answering questions. All systems reviewed & are unremarkable except as noted in HPI and below ROS unobtainable: Yes unobtainable due to mental status Constitutional: Constitutional: Reports as per HPI and Reports no additional constitutional complaints Eyes: Eyes: Reports as per HPI and Reports no additional eye complaints ENT: Reports system reviewed and no additional complaints, except as documented and Reports Normal hearing present Cardiovascular: Cardiovascular: Reports no additional cardiovascular complaints Respiratory: Respiratory: Reports no additional respiratory complaints and Reports no additional respiratory complaints Gastrointestinal: Gastrointestinal: Reports as per HPI and Reports no additional gastrointestinal complaints Musculoskeletal: Musculoskeletal: Reports no additional musculoskeletal complaints Integumentary/Breasts: Skin/Breast: Reports system reviewed and no additional complaints, except as docu and Reports as per HPI Neurologic: Reports system reviewed and no additional complaints, except as documented, Reports as per HPI and Reports Normal hearing present Psychiatric: Psychiatric: Reports no additional psychiatric complaints and Reports as per HPI Endocrine: Endocrine: Reports no additional endocrine complaints Hematologic/Lymphatic: Hematologic/Lymphatic: Reports no additional hematologic/lymphatic complaints Allergic/Immunologic: Allergic/Immunologic: Reports no additional allergic/immunologic complaints [facility] Past Medical History Medical History (Updated 09/07/20 @ 14:51 by Keyana Nava
[2020-09-07] MEDS: APIXABAN 5 MG TABLET PO (17:08)
[2020-09-07] MEDS: MEMANTINE 10 MG TABLET PO (17:08)
[2020-09-07] MEDS: traZODone HCL 50 MG TABLET PO (20:09)
[2020-09-07] MEDS: SERTRALINE HCL 50 MG TABLET 100 MG PO (20:10)
[2020-09-07] MEDS: ATORVASTATIN 40 MG TABLET PO (20:10)
[2020-09-07] MEDS: DONEPEZIL HCL 5 MG TABLET PO (20:47)
[2020-09-08] VITALS (11 sets, daily range): BP systolic 105–142; BP diastolic 45–80; PULSE 62–77; RESP 14–20; TEMP 36.6–37.3; O2SAT 94–100
[2020-09-08 05:40] LABS: Basophils Percent Auto 0.4 % (0.2-1.2); Eosinophils Percent Auto 0.4 % (0-4.4); Hemoglobin 10.6 g/dL (14.0-18.0); Immature Granulocyte Absolute 0.03 K/mm3 (0.00-0.031); Immature Granulocyte Percent A 0.4 % (0-0.5); Lymphocytes Percent Auto 9.9 % (18.3-44.2); Mean Corpuscular HGB Conc 33.1 g/dl (32-36); Mean Corpuscular Hemoglobin 31.4 pg (26-34); Mean Corpuscular Volume 94.7 fl (80-100); Mean Platelet Volume 10.2 fl (7.4-10.4); Monocytes Absolute Auto 0.6 K/mm3 (0.1-0.6); Monocytes Percent Auto 7.9 % (2.6-8.5); Neutrophils Absolute Auto 6.6 K/mm3 (1.3-6.7); Platelet Count Result 208 k/mm3 (150-375); Red Blood Count 3.38 M/mm3 (4.6-6.20); Red Cell Distribution Width 14.7 % (11.5-14.5); White Blood Count 8.1 K/mm3 (4.5-10.0)
[2020-09-08 06:10] LABS: Alanine Aminotransferase 44 U/L (4-50); Albumin Level 3.7 g/dL (3.5-5.1); Alkaline Phosphatase 94 U/L (38-126); Anion Gap 7 mmol/L (8-16); Aspartate Amino Transferase 94 U/L (17-59); Blood Urea Nitrogen 27 mg/dL (9-20); CRP 1.2 mg/dL (<1.0); Calcium 8.9 mg/dL (8.4-10.2); Carbon Dioxide 28 mmol/L (22-30); Chloride 101 mmol/L (98-107); Estimated CRCL calculation 60 ml/min; Estimated Glomerular Filt Rate > 60; Glucose 110 mg/dL (75-110); Lactate Dehydrogenase 494 U/L (313-618); Magnesium 1.9 mg/dL (1.6-2.3); Potassium 4.1 mmol/L (3.4-5.0); Sodium 136 mmol/L (137-145)
[2020-09-08 06:16] LABS: Creatine Kinase 2340 U/L (55-170)
[2020-09-08] MEDS: SODIUM CHLORIDE 0.9% IV 1,000 ML 75 ML IV CONT ×2 (07:59→20:42)
[2020-09-08] MEDS: METOPROLOL SUCCINATE EXT REL 25 MG TABCR PO (08:00)
[2020-09-08] MEDS: APIXABAN 5 MG TABLET PO ×2 (08:00→16:14)
[2020-09-08] MEDS: MEMANTINE 10 MG TABLET PO ×2 (08:00→16:13)
--- NOTE | 2020-09-08 09:10 | PCPTNOTE ---
Addendum entered by Deepti Dsouza, PT 09/08/20 09:14: *Pt switching rooms. Will attempt again at a later time. Deepti Dsouza DPT Original Note: Attempted PT evaluation. Pt leaving for procedure. Will attempt again at a later time. Deepti Dsouza DPT
--- NOTE | 2020-09-08 09:14 | PCOTNOTE ---
Attempted OT evaluation, pt is being transferred to 3 med Surg at this time. will attempt at later time.
--- NOTE | 2020-09-08 09:30 | PC.NURSE ---
Transferred patient to room 325 via bed with staff. Report given to Karis Ma RN.
--- NOTE | 2020-09-08 10:11 | PC.NURSE ---
This patient, Ranjit Pettit, was received from [address] [place] [address] on 09/08/20 at 0945. Patient/family oriented to unit policies and routines
--- NOTE | 2020-09-08 17:25 | PM.IMPN ---
Progress Note: A&P Assessment and Plan (1) Rhabdomyolysis: Qualifiers: Rhabdomyolysis type: non-traumatic Qualified Code(s): M62.82 - Rhabdomyolysis Code(s): M62.82 - Rhabdomyolysis Status: Acute Assessment and Plan: Likely traumatic due to fall. CK has increased. Urine myoglobin is pending. Continue IV normal saline, hydrate gently given diastolic dysfunction. Monitor electrolytes closely. Monitor urine output. Trend CK. (2) Hypercholesterolemia: Code(s): E78.00 - Pure hypercholesterolemia, unspecified Status: Chronic Assessment and Plan: Continue atorvastatin. (3) Hypertension: Code(s): I10 - Essential (primary) hypertension Status: Chronic Assessment and Plan: Blood pressures are acceptable. He has a few readings on the soft side. Most recent BP is 105/80. Continue metoprolol. Continue to monitor. (4) Dementia: Qualifiers: Dementia behavioral disturbance: without behavioral disturbance Dementia type: unspecified type Qualified Code(s): F03.90 - Unspecified dementia without behavioral disturbance Code(s): F03.90 - Unspecified dementia without behavioral disturbance Status: Chronic Assessment and Plan: Chronic. The pt appears to be at his baseline. Continue memantine. 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 She denied any PEs or DVTs. She denied any arrhythmias. However the patient recently had a pacemaker placed about 3 weeks ago. The patient is on Eliquis and read it was reported that the patient did hit his head however the CT scan of the brain showed nothing acute. (6) JACQUELIN on CPAP: Code(s): G47.33 - Obstructive sleep apnea (adult) (pediatric); Z99.89 - Dependence on other enabling machines and devices Status: Chronic Assessment and Plan: Continue CPAP titrated to home settings once COVID-19 test is available. (7) (HFpEF) heart failure with preserved ejection fraction: Code(s): I50.30 - Unspecified diastolic (congestive) heart failure Status: Acute Assessment and Plan: CXR showed concern for possible developing infection or edema. Echocardiogram was ordered and demonstrates normal EF 65-70% with grade II diastolic dysfunction. Monitor volume status closely given need for IV fluids for rhabdomyolysis given underlying diastolic dysfunction. Additional Plan PT/OT is following. Subjective Date/time seen: 09/08/20 17:25 Mr. Pettit is a 75 y.o. male with PMH significant for dementia, hyperlipidemia, hypertension, and JACQUELIN who is seen in follow-up for rhabdomyolysis. He is doing well today and offers no complaints. The pt is a poor historian due to his underlying Alzheimer's dementia. No acute events reported overnight. He reports that he is not having any pain. He is not having any headaches, lightheadedness, or dizziness. He denies chest pain, dyspnea, and cough. He denies nausea, vomiting, and abdominal pain. He denies fever and chills. Review of Systems Review of Systems: All systems reviewed & are unremarkable except as noted in HPI and below Exam Narrative: Exam Narrative: General: Pleasant, chronically ill appearing, well-developed, and well-nourished 75 y.o. gentleman sitting in the chair at the bedside in no apparent distress. HEENT: Normocephalic and atraumatic. Sclera anicteric. EOMI. Oral mucosa moist. Neck: Supple. Cardiac: Regular rate and rhythm. S1 and S2 normal. No murmur appreciated. Lungs: Respirations even and non-labored. Lungs have diminished breath sounds at the bases. No wheezes. Abdomen: Bowel sounds are normoactive. Abdomen is soft, non-distended, and non-tender. Extremities: Scant lower extremity edema with evidence of chronic venous stasis
[2020-09-08 19:10] LABS: SARS-CoV-2 RNA PCR Negative
[2020-09-08] MEDS: ATORVASTATIN 40 MG TABLET PO (20:41)
[2020-09-08] MEDS: traZODone HCL 50 MG TABLET PO (20:41)
[2020-09-08] MEDS: DONEPEZIL HCL 5 MG TABLET PO (20:41)
[2020-09-08] MEDS: SERTRALINE HCL 50 MG TABLET 100 MG PO (20:41)
[2020-09-09] VITALS (9 sets, daily range): BP systolic 109–120; BP diastolic 53–60; PULSE 60–89; RESP 16–22; TEMP 36.5–36.8; O2SAT 96–100
[2020-09-09] MEDS: APIXABAN 5 MG TABLET PO ×2 (08:22→16:14)
[2020-09-09] MEDS: METOPROLOL SUCCINATE EXT REL 25 MG TABCR PO (08:22)
[2020-09-09] MEDS: MEMANTINE 10 MG TABLET PO ×2 (08:23→16:14)
[2020-09-09] MEDS: SODIUM CHLORIDE 0.9% IV 1,000 ML 75 ML IV CONT ×2 (08:27→21:32)
[2020-09-09 10:14] LABS: Basophils Percent Auto 0.4 % (0.2-1.2); Eosinophils Absolute Auto 0.2 K/mm3 (0-0.3); Hematocrit 36.8 % (42.0-52.0); Hemoglobin 11.8 g/dL (14.0-18.0); Immature Granulocyte Absolute 0.03 K/mm3 (0.00-0.031); Immature Granulocyte Percent A 0.3 % (0-0.5); Lymphocytes Percent Auto 7.4 % (18.3-44.2); Mean Corpuscular HGB Conc 32.1 g/dl (32-36); Mean Corpuscular Volume 99.7 fl (80-100); Mean Platelet Volume 10.1 fl (7.4-10.4); Monocytes Absolute Auto 0.7 K/mm3 (0.1-0.6); Monocytes Percent Auto 7.7 % (2.6-8.5); Neutrophils Absolute Auto 7.7 K/mm3 (1.3-6.7); Neutrophils Percent Auto 82.2 % (45.5-73.1); Platelet Count Result 197 k/mm3 (150-375); Red Blood Count 3.69 M/mm3 (4.6-6.20); Red Cell Distribution Width 14.8 % (11.5-14.5); White Blood Count 9.4 K/mm3 (4.5-10.0)
[2020-09-09 10:30] LABS: Creatine Kinase 1197 U/L (55-170)
[2020-09-09 10:32] LABS: Alanine Aminotransferase 56 U/L (4-50); Alkaline Phosphatase 87 U/L (38-126); Anion Gap 6 mmol/L (8-16); Aspartate Amino Transferase 100 U/L (17-59); Bilirubin,Total 3.1 mg/dL (0.2-1.3); Blood Urea Nitrogen 22 mg/dL (9-20); Calcium 9.1 mg/dL (8.4-10.2); Carbon Dioxide 28 mmol/L (22-30); Chloride 102 mmol/L (98-107); Estimated CRCL calculation 66 ml/min; Estimated Glomerular Filt Rate > 60; Glucose 138 mg/dL (75-110); Potassium 3.9 mmol/L (3.4-5.0); Sodium 136 mmol/L (137-145)
[2020-09-09 10:42] LABS: Phosphorus 3.4 mg/dL (2.5-4.5)
[2020-09-09 12:07] LABS: Bilirubin Indirect 2.9 mg/dL (0-1.1)
--- NOTE | 2020-09-09 13:53 | PM.IMPN ---
Progress Note: A&P Assessment and Plan (1) Rhabdomyolysis: Qualifiers: Rhabdomyolysis type: non-traumatic Qualified Code(s): M62.82 - Rhabdomyolysis Code(s): M62.82 - Rhabdomyolysis Status: Acute Assessment and Plan: Likely traumatic due to fall. CK has improved today. Will hold atorvastatin although I do feel this is likely due to his fall. Urine myoglobin is pending. Continue IV normal saline, hydrate gently given diastolic dysfunction. Monitor electrolytes closely. Monitor urine output. Trend CK. (2) Hypercholesterolemia: Code(s): E78.00 - Pure hypercholesterolemia, unspecified Status: Chronic Assessment and Plan: LFTs are mildly elevated. Hold atorvastatin given rhabdomyolysis. (3) Hypertension: Code(s): I10 - Essential (primary) hypertension Status: Chronic Assessment and Plan: Blood pressures are acceptable. Most recent BP is 109/60. Continue metoprolol. Continue to monitor. (4) Dementia: Qualifiers: Dementia behavioral disturbance: without behavioral disturbance Dementia type: unspecified type Qualified Code(s): F03.90 - Unspecified dementia without behavioral disturbance Code(s): F03.90 - Unspecified dementia without behavioral disturbance Status: Chronic Assessment and Plan: Chronic. The pt appears to be at his baseline. Continue memantine. I do think he would benefit from evaluation by neurology for Parkinson's disease outpatient as he does exhibit some signs to suggest it. 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 (6) JACQUELIN on CPAP: Code(s): G47.33 - Obstructive sleep apnea (adult) (pediatric); Z99.89 - Dependence on other enabling machines and devices Status: Chronic Assessment and Plan: Continue CPAP titrated to home settings. (7) (HFpEF) heart failure with preserved ejection fraction: Code(s): I50.30 - Unspecified diastolic (congestive) heart failure Status: Acute Assessment and Plan: CXR showed concern for possible developing infection or edema. Echocardiogram was ordered and demonstrates normal EF 65-70% with grade II diastolic dysfunction. Monitor volume status closely given need for IV fluids for rhabdomyolysis given underlying diastolic dysfunction. (8) Urinary retention: Code(s): R33.9 - Retention of urine, unspecified Status: Acute Assessment and Plan: Straight cath in the ER yielded 1000cc of urine. Bladder scan was repeated and the pt had 930cc residual so vogel was placed. Will consult urology as he will need follow-up. Add tamsulosin. Additional Plan PT/OT is following. Subjective Date/time seen: 09/09/20 13:53 Mr. Pettit is a 75 y.o. male with PMH significant for dementia, hyperlipidemia, hypertension, and JACQUELIN who is seen in follow-up for rhabdomyolysis. No acute events reported overnight. He is doing well today. He is conversant and offers no specific complaints. He reports no pain. He has no nausea or vomiting. He is eating well. He had a bowel movement yesterday. He denies chest pain and dyspnea. He denies subjective fever and chills. He has no calf pain. He denies lightheadedness, dizziness, and headche. Review of Systems Review of Systems: All systems reviewed & are unremarkable except as noted in HPI and below Exam Narrative: Exam Narrative: General: Pleasant, chronically ill appearing, well-developed, and well-nourished 75 y.o. gentleman sitting in the chair after eating lunch in no acute distress. HEENT: Normocephalic and atraumatic. Sclera anicteric. PERRL. EOMI. Oral mucosa moist. Neck: Supple. Cardiac: Regular rate and rhythm. S1 and S2 normal. No murmur appreciated. Lungs: Lungs are clear to auscultation bilaterally with diminished breath so
[2020-09-09] MEDS: DONEPEZIL HCL 5 MG TABLET PO (21:30)
[2020-09-09] MEDS: SERTRALINE HCL 50 MG TABLET 100 MG PO (21:30)
[2020-09-09] MEDS: traZODone HCL 50 MG TABLET PO (21:30)
[2020-09-10 06:00] VITALS: BP 101/46; PULSE 60; RESP 18; TEMP 36.6; O2SAT 93
[2020-09-10 06:09] LABS: Basophils Absolute Auto 0.1 K/mm3 (0.0-0.1); Basophils Percent Auto 0.5 % (0.2-1.2); Eosinophils Absolute Auto 0.3 K/mm3 (0-0.3); Eosinophils Percent Auto 2.9 % (0-4.4); Hematocrit 30.5 % (42.0-52.0); Hemoglobin 9.9 g/dL (14.0-18.0); Immature Granulocyte Absolute 0.05 K/mm3 (0.00-0.031); Immature Granulocyte Percent A 0.5 % (0-0.5); Lymphocytes Absolute Auto 0.68 K/mm3 (0.9-3.2); Lymphocytes Percent Auto 7.4 % (18.3-44.2); Mean Corpuscular HGB Conc 32.5 g/dl (32-36); Mean Corpuscular Hemoglobin 31.5 pg (26-34); Mean Corpuscular Volume 97.1 fl (80-100); Mean Platelet Volume 10.3 fl (7.4-10.4); Monocytes Absolute Auto 0.8 K/mm3 (0.1-0.6); Monocytes Percent Auto 8.5 % (2.6-8.5); Neutrophils Absolute Auto 7.3 K/mm3 (1.3-6.7); Neutrophils Percent Auto 80.2 % (45.5-73.1); Platelet Count Result 165 k/mm3 (150-375); Red Blood Count 3.14 M/mm3 (4.6-6.20); Red Cell Distribution Width 14.6 % (11.5-14.5); White Blood Count 9.2 K/mm3 (4.5-10.0)
[2020-09-10 06:31] LABS: Alanine Aminotransferase 52 U/L (4-50); Albumin Level 3.2 g/dL (3.5-5.1); Alkaline Phosphatase 83 U/L (38-126); Anion Gap 4 mmol/L (8-16); Aspartate Amino Transferase 79 U/L (17-59); Bilirubin,Total 2.7 mg/dL (0.2-1.3); Blood Urea Nitrogen 24 mg/dL (9-20); Calcium 8.3 mg/dL (8.4-10.2); Carbon Dioxide 27 mmol/L (22-30); Chloride 103 mmol/L (98-107); Creatine Kinase 854 U/L (55-170); Estimated CRCL calculation 66 ml/min; Estimated Glomerular Filt Rate > 60; Glucose 100 mg/dL (75-110); Potassium 3.6 mmol/L (3.4-5.0); Sodium 134 mmol/L (137-145)
[2020-09-10 08:00] VITALS: PULSE 60; RESP 18; O2SAT 93
[2020-09-10] MEDS: APIXABAN 5 MG TABLET PO ×2 (09:03→17:41)
[2020-09-10 09:04] VITALS: PULSE 60
[2020-09-10] MEDS: METOPROLOL SUCCINATE EXT REL 25 MG TABCR PO (09:04)
[2020-09-10] MEDS: TAMSULOSIN HCL 0.4 MG CAPSULE PO (09:04)
[2020-09-10] MEDS: MEMANTINE 10 MG TABLET PO ×2 (09:04→17:40)
[2020-09-10 10:19] LABS: Folic Acid 18.5 ng/mL (2.76->20)
--- NOTE | 2020-09-10 11:30 | WPDURCON ---
Assessment and Plan Assessment and plan (1) Urinary retention: Code(s): R33.9 - Retention of urine, unspecified Status: Acute Assessment and Plan: 75 yo male with multiple medical problems, dementia, acute retention after fall with resultant rhabdomyolysis #1 BPH with retention given > 1 liter , plan to leave vogel in for bladder rest and continue flomax. Limit narcotics, anticholinergics and sedatives. Aggressive bowel regimen. plan for voiding trial in 1 week. Thank you for consultation if questions or concerns arise please don't hesitate to contact me. Urology Consult Note HPI Date Seen: 09/10/20 Requesting Physician: Isabel Edmond PA-C Primary Care Provider: [facility] Consult Narrative Narrative: Ranjit Pettit is a 75 year old male with multiple medical problems found down after a fall with rhabdomyolysis. He is a poor historian and unable to provide much history. He denies abominal pain, back pain, hematuria or dysuria. He is unsure whether or not he has seen a urologist before. He had catheter placed for PVR of 1000cc and flomax was started. Review of Systems Review of Systems: All systems reviewed & are unremarkable except as noted in HPI and below ROS unobtainable: Yes unobtainable due to mental status Constitutional: Constitutional: Reports no additional constitutional complaints Eyes: Eyes: Reports as per HPI and Reports no additional eye complaints ENT: Reports system reviewed and no additional complaints, except as documented and Reports as per HPI Cardiovascular: Cardiovascular: Reports as per HPI and Reports no additional cardiovascular complaints Respiratory: Respiratory: Reports no additional respiratory complaints Gastrointestinal: Gastrointestinal: Reports no additional gastrointestinal complaints, Denies abdominal pain, Denies melena and Denies bloating Genitourinary: Genitourinary: Denies dysuria, Denies flank pain, Denies nocturia and Denies scrotal swelling Musculoskeletal: Musculoskeletal: Reports no additional musculoskeletal complaints Integumentary/Breasts: Skin/Breast: Reports system reviewed and no additional complaints, except as docu Neurologic: Reports system reviewed and no additional complaints, except as documented Psychiatric: Psychiatric: Reports as per HPI Endocrine: Endocrine: Reports as per HPI Hematologic/Lymphatic: Hematologic/Lymphatic: Reports no additional hematologic/lymphatic complaints Allergic/Immunologic: Allergic/Immunologic: Reports no additional allergic/immunologic complaints [facility] Past Medical History Medical History (Updated 09/09/20 @ 15:48 by Isabel Edmond PA-C) Dementia Hypercholesterolemia Hypertension JACQUELIN on CPAP Surgical History Surgical History (Updated 09/07/20 @ 14:51 by Keyana Deal NP) H/O shoulder replacement History of knee replacement Status post biventricular cardiac pacemaker insertion Family History Family History (Updated 09/07/20 @ 14:54 by Keyana Deal NP) Mother Cancer Father Liver failure Social History Social History (Updated 09/07/20 @ 14:56 by Keyana Deal NP) Social History: He tells me that he lives with his . other family members live with them as well to help them out. She is a durable power insurance defense attorney for healthcare. He is a full code. He tells me that he has 2 children. He is retired From the [employer] as well as [employer]. according to the he smoked many many years ago With a lived in [place]. He is noted to be a full code. Smoking status: Never smoker Alcohol intake: never Substance use: never Gender identity (if verbalized by the patient): Male Spiritual care concerns: No Meds Home Medications and Allergies Home Medications Medication Instructions Recorded Confirmed Type atorvastatin 40 mg PO HS 03/14/20 09/07/20 History donepezil 5 mg PO HS 03/14/20 09/07/20 History memantine 10 mg PO BID 03/14/20 12
[2020-09-10 11:33] LABS: Iron 48 ug/dL (49-181)
[2020-09-10 11:49] LABS: Percent Iron Saturation 14 % (20-50)
[2020-09-10] MEDS: SODIUM CHLORIDE 0.9% IV 1,000 ML 75 ML IV CONT (12:29)
--- NOTE | 2020-09-10 13:28 | PM.IMPN ---
Progress Note: A&P Assessment and Plan (1) Rhabdomyolysis: Qualifiers: Rhabdomyolysis type: non-traumatic Qualified Code(s): M62.82 - Rhabdomyolysis Code(s): M62.82 - Rhabdomyolysis Status: Acute Assessment and Plan: Likely traumatic due to fall. CK has improved today and is 854. Hold atorvastatin although I do feel this is likely due to his fall. Urine myoglobin is pending. Will stop IV fluids now and encourage PO intake as has some lower extremity dependent edema with underlying diastolic dysfunction. Monitor electrolytes closely. Monitor urine output. Trend CK. (2) Hypercholesterolemia: Code(s): E78.00 - Pure hypercholesterolemia, unspecified Status: Chronic Assessment and Plan: LFTs are mildly elevated. Hold atorvastatin given rhabdomyolysis. (3) Hypertension: Code(s): I10 - Essential (primary) hypertension Status: Chronic Assessment and Plan: Blood pressures are acceptable. Most recent BP is 110/70. Continue metoprolol. Continue to monitor. (4) Dementia: Qualifiers: Dementia behavioral disturbance: without behavioral disturbance Dementia type: unspecified type Qualified Code(s): F03.90 - Unspecified dementia without behavioral disturbance Code(s): F03.90 - Unspecified dementia without behavioral disturbance Status: Chronic Assessment and Plan: Chronic. The pt appears to be at his baseline. Continue memantine. I do think he would benefit from evaluation by neurology for Parkinson's disease outpatient as he does exhibit some signs to suggest it. I discussed this with his today. He does have a neurologist and she will have him follow-up outpatient. (5) Current use of chcf anticoagulation: Code(s): Z79.01 - snf (current) use of anticoagulants Status: Acute Assessment and Plan: Continue eliquis. (6) JACQUELIN on CPAP: Code(s): G47.33 - Obstructive sleep apnea (adult) (pediatric); Z99.89 - Dependence on other enabling machines and devices Status: Chronic Assessment and Plan: Continue CPAP titrated to home settings. (7) (HFpEF) heart failure with preserved ejection fraction: Code(s): I50.30 - Unspecified diastolic (congestive) heart failure Status: Acute Assessment and Plan: CXR showed concern for possible developing infection or edema. Echocardiogram was ordered and demonstrates normal EF 65-70% with grade II diastolic dysfunction. Monitor volume status closely given need for IV fluids for rhabdomyolysis given underlying diastolic dysfunction. He has increased edema of the lower extremities. Stop IV fluids. Give lasix IV 20mg. Add MERARY vane. (8) Urinary retention: Code(s): R33.9 - Retention of urine, unspecified Status: Acute Assessment and Plan: Straight cath in the ER yielded 1000cc of urine. Bladder scan was repeated and the pt had 930cc residual so vogel was placed. Tamsulosin was added but will have to monitor BP closely. He was seen by urology who recommends to keep the vogel in place and perform voiding trial in 1 week outpatient. Additional Plan PT/OT is following. Subjective Date/time seen: 09/10/20 13:28 Mr. Pettit is a 75 y.o. male with PMH significant for dementia, hyperlipidemia, hypertension, and JACQUELIN who is seen in follow-up for rhabdomyolysis. He is doing well and expresses that he is eager to go home. He has no complaints. No acute events overnight. He has no chest pain, dyspnea, and cough. He has no nausea, vomiting, and abdominal pain. He has no headache, lightheadedness, or dizziness. Review of Systems Review of Systems: All systems reviewed & are unremarkable except as noted in HPI and below Exam Narrative: Exam Narrative: General: Very pleasant, chronically ill appearing, well-developed, and well-nourished 75 y.o. gentleman sitting in the chair at the bedside [email or web address]
[2020-09-10] MEDS: FUROSEMIDE INJ 40 MG/4 ML VIAL 20 MG IV PUSH (13:53)
[2020-09-10 14:58] VITALS: BP 110/70
[2020-09-10] MEDS: FERROUS SULFATE 324 MG TABLET PO (17:40)
[2020-09-10] MEDS: DONEPEZIL HCL 5 MG TABLET PO (21:08)
[2020-09-10] MEDS: DOCUSATE SODIUM 100 MG CAPSULE PO (21:08)
[2020-09-10] MEDS: SERTRALINE HCL 50 MG TABLET 100 MG PO (21:08)
[2020-09-10] MEDS: traZODone HCL 50 MG TABLET PO (21:09)
[2020-09-10 22:00] VITALS: BP 115/52; PULSE 70; RESP 16; TEMP 36.6; O2SAT 100
[2020-09-11 05:51] VITALS: BP 108/52; PULSE 67; RESP 18; TEMP 36.3; O2SAT 9
--- NOTE | 2020-09-11 06:18 | WPDUROPN2 ---
Progress Note: A&P Assessment and Plan (1) Rhabdomyolysis: Qualifiers: Rhabdomyolysis type: non-traumatic Qualified Code(s): M62.82 - Rhabdomyolysis Code(s): M62.82 - Rhabdomyolysis Status: Acute (2) Urinary retention: Code(s): R33.9 - Retention of urine, unspecified Status: Acute Assessment and Plan: Bladder volume 1000cc suggest longstanding urinary retention. Plan for Blake catheter x1 week before voiding trial. Subjective Subjective Date/Time Seen: 09/11/20 06:18 Comfortable, seems to be tolerating stent well Review of Systems Cardiovascular: Cardiovascular: Denies chest pain, Denies lightheadedness, Denies palpitations and Denies dyspnea Respiratory: Respiratory: Denies dyspnea Gastrointestinal: Gastrointestinal: Denies diarrhea, Denies nausea and Denies vomiting Genitourinary: Genitourinary: Denies hematuria and Denies dysuria Endocrine: Endocrine: Denies palpitations Exam Const: General: no acute distress Resp: Effort & Inspection: normal respiratory effort GI: Inspection: non-distended GI Palp: No abdominal tenderness and No Guarding due to palpation present (GI) Auscultation: normal bowel sounds Objective Data Vital Signs Vital Signs: Vital Signs - 24 hr 09/10/20 08:00 09/10/20 09:04 09/10/20 14:58 Temperature Pulse Rate 60 60 Respiratory Rate 18 Blood Pressure 110/70 Pulse Oximetry 93 09/10/20 22:00 09/11/20 05:51 Temperature 97.8 F 97.4 F L Pulse Rate 70 67 Respiratory Rate 16 18 Blood Pressure 115/52 L 108/52 L Pulse Oximetry 100 9 L Intake/Output Intake/Output: Intake & Output 09/08/20 09/09/20 09/10/20 09/11/20 23:59 23:59 23:59 23:59 Intake Total 1670 3000 1540 250 Output Total 1350 1600 2050 850 Balance 320 1400 -510 -600 Meds/Results Medications: Active Medications Generic Name Dose Route Start Last Admin Trade Name Freq PRN Reason Stop Dose Admin Apixaban 5 mg 09/07/20 17:00 09/10/20 17:41 Apixaban 5 Mg Tablet PO 5 mg BID CARMELINA Administration Atorvastatin Calcium 40 mg 09/07/20 21:00 09/08/20 20:41 Atorvastatin 40 Mg Tablet PO 40 mg HS CARMELINA Administration Cyanocobalamin 1,000 mcg 09/11/20 09:00 Cyanocobalamin Inj 1,000 Mcg/Ml Vial IM WEEKLY CARMELINA Docusate Sodium 100 mg 09/10/20 21:00 09/10/20 21:08 Docusate Sodium 100 Mg Capsule PO 100 mg Q12HR CARMELINA Administration Donepezil HCl 5 mg 09/07/20 21:00 09/10/20 21:08 Donepezil Hcl 5 Mg Tablet PO 5 mg HS CARMELINA Administration Ferrous Sulfate 324 mg 09/10/20 09:00 09/10/20 17:40 Ferrous Sulfate 324 Mg Tablet PO 324 mg DAILY CARMELINA Administration Memantine 10 mg 09/07/20 17:00 09/10/20 17:40 Memantine 10 Mg Tablet PO 10 mg BID CARMELINA Administration Metoprolol Succinate 25 mg 09/08/20 09:00 09/10/20 09:04 Metoprolol Succinate Ext Rel 25 Mg Tabcr PO 25 mg DAILY CARMELINA Administration Polyethylene Glycol 17 gm 09/10/20 14:28 Polyethylene Glycol 3350 17 Gm Powd.Pack PO QAM PRN Constipation Sertraline HCl 100 mg 09/07/20 21:00 09/10/20 21:08 Sertraline Hcl 50 Mg Tablet PO 100 mg HS CARMELINA Administration Tamsulosin HCl 0.4 mg 09/10/20 09:00 09/10/20 09:04 Tamsulosin Hcl 0.4 Mg Capsule PO 0.4 mg QAM CARMELINA Administration Trazodone HCl 50 mg 09/07/20 21:00 09/10/20 21:09 Trazodone Hcl 50 Mg Tablet PO 50 mg HS CARMELINA Administration Radiology Results: ITS Impressions Cervical Spine CT 09/07/20 11:09 IMPRESSION: 1. No acute intracranial findings or cervical fracture. 2. Age-related intracranial findings. 3. Cervical spondylosis. Head CT 09/07/20 11:09 IMPRESSION: 1. No acute intracranial findings or cervical fracture. 2. Age-related intracranial findings. 3. Cervical spondylosis. Chest X-Ray 09/07/20 11:31 IMPRESSION: Possible developing bilateral infection or edema. Please clinically correlate.
[2020-09-11 06:45] LABS: Basophils Absolute Auto 0.1 K/mm3 (0.0-0.1); Basophils Percent Auto 0.9 % (0.2-1.2); Eosinophils Absolute Auto 0.4 K/mm3 (0-0.3); Eosinophils Percent Auto 4.5 % (0-4.4); Hematocrit 31.4 % (42.0-52.0); Hemoglobin 10.3 g/dL (14.0-18.0); Immature Granulocyte Absolute 0.04 K/mm3 (0.00-0.031); Immature Granulocyte Percent A 0.5 % (0-0.5); Lymphocytes Absolute Auto 0.81 K/mm3 (0.9-3.2); Lymphocytes Percent Auto 10.4 % (18.3-44.2); Mean Corpuscular HGB Conc 32.8 g/dl (32-36); Mean Corpuscular Hemoglobin 30.9 pg (26-34); Mean Corpuscular Volume 94.3 fl (80-100); Mean Platelet Volume 10.6 fl (7.4-10.4); Monocytes Absolute Auto 0.8 K/mm3 (0.1-0.6); Monocytes Percent Auto 10.4 % (2.6-8.5); Neutrophils Absolute Auto 5.7 K/mm3 (1.3-6.7); Neutrophils Percent Auto 73.3 % (45.5-73.1); Platelet Count Result 182 k/mm3 (150-375); Red Blood Count 3.33 M/mm3 (4.6-6.20); Red Cell Distribution Width 14.2 % (11.5-14.5); White Blood Count 7.8 K/mm3 (4.5-10.0)
[2020-09-11 07:40] LABS: Alanine Aminotransferase 49 U/L (4-50); Albumin Level 3.4 g/dL (3.5-5.1); Alkaline Phosphatase 90 U/L (38-126); Anion Gap 2 mmol/L (8-16); Aspartate Amino Transferase 72 U/L (17-59); Bilirubin,Total 3.3 mg/dL (0.2-1.3); Blood Urea Nitrogen 21 mg/dL (9-20); Calcium 8.7 mg/dL (8.4-10.2); Carbon Dioxide 31 mmol/L (22-30); Chloride 103 mmol/L (98-107); Creatine Kinase 772 U/L (55-170); Estimated CRCL calculation 66 ml/min; Estimated Glomerular Filt Rate > 60; Glucose 103 mg/dL (75-110); Potassium 3.7 mmol/L (3.4-5.0); Sodium 136 mmol/L (137-145)
[2020-09-11 08:19] VITALS: O2SAT 95
[2020-09-11] MEDS: DOCUSATE SODIUM 100 MG CAPSULE PO (08:56)
[2020-09-11] MEDS: CYANOCOBALAMIN INJ 1,000 MCG/ML VIAL 1000 MCG IM (08:57)
[2020-09-11] MEDS: FERROUS SULFATE 324 MG TABLET PO (08:57)
[2020-09-11] MEDS: TAMSULOSIN HCL 0.4 MG CAPSULE PO (08:58)
[2020-09-11] MEDS: MEMANTINE 10 MG TABLET PO ×2 (08:58→16:47)
[2020-09-11 08:59] VITALS: PULSE 67
[2020-09-11] MEDS: METOPROLOL SUCCINATE EXT REL 25 MG TABCR PO (08:59)
[2020-09-11] MEDS: APIXABAN 5 MG TABLET PO ×2 (10:06→16:47)
[2020-09-11 14:00] VITALS: BP 104/73; PULSE 81; RESP 18; TEMP 36.3; O2SAT 100
--- NOTE | 2020-09-11 17:13 | PM.IMPN ---
Progress Note: A&P Assessment and Plan (1) Rhabdomyolysis: Qualifiers: Rhabdomyolysis type: non-traumatic Qualified Code(s): M62.82 - Rhabdomyolysis Code(s): M62.82 - Rhabdomyolysis Status: Acute Assessment and Plan: Likely traumatic due to fall. CK continues to improve and is 772 today. Hold atorvastatin although I do feel this is likely due to his fall. Urine myoglobin is pending. IV fluids were stopped 09/10 due to lower extremity dependent edema with underlying diastolic dysfunction. Monitor electrolytes closely. Monitor urine output. Trend CK. (2) Hypercholesterolemia: Code(s): E78.00 - Pure hypercholesterolemia, unspecified Status: Chronic Assessment and Plan: LFTs are mildly elevated. Hold atorvastatin given rhabdomyolysis. (3) Hypertension: Code(s): I10 - Essential (primary) hypertension Status: Chronic Assessment and Plan: Blood pressures are acceptable. Most recent BP is 104/73. Continue metoprolol. Continue to monitor. (4) Dementia: Qualifiers: Dementia behavioral disturbance: without behavioral disturbance Dementia type: unspecified type Qualified Code(s): F03.90 - Unspecified dementia without behavioral disturbance Code(s): F03.90 - Unspecified dementia without behavioral disturbance Status: Chronic Assessment and Plan: Chronic. The pt appears to be at his baseline. Continue memantine. I do think he would benefit from evaluation by neurology for Parkinson's disease outpatient as he does exhibit some signs to suggest it. I discussed this with his . He does have a neurologist and she will have him follow-up outpatient. 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 Continue eliquis. Recommend his PCP evaluate whether or not this is still incidcated given fall risk. (6) JACQUELIN on CPAP: Code(s): G47.33 - Obstructive sleep apnea (adult) (pediatric); Z99.89 - Dependence on other enabling machines and devices Status: Chronic Assessment and Plan: Continue CPAP titrated to home settings. (7) (HFpEF) heart failure with preserved ejection fraction: Code(s): I50.30 - Unspecified diastolic (congestive) heart failure Status: Acute Assessment and Plan: CXR showed concern for possible developing infection or edema. Clincial picture does not suggest PNA. Echocardiogram was ordered and demonstrates normal EF 65-70% with grade II diastolic dysfunction. He had increased edema / so IV fluids were discontinued. Swelling resolved. Continue MERARY hose and leg elevation. (8) Urinary retention: Code(s): R33.9 - Retention of urine, unspecified Status: Acute Assessment and Plan: Straight cath in the ER yielded 1000cc of urine. Bladder scan was repeated and the pt had 930cc residual so vogel was placed. Tamsulosin was added and BP will need to be monitored closely. He was seen by urology who recommends to keep the vogel in place and perform voiding trial in 1 week outpatient. His noted that he has had urinary retention for awhile prior to admission but was not formally evaluated yet. (9) Anemia: Code(s): D64.9 - Anemia, unspecified Status: Acute Assessment and Plan: Chronic and normocytic. Hb is 10.3 today. Iron studies show iron deficiency. PO ferrous sulfate was started. Vitamin B12 is on the low end of normal and is also being supplemented. He will need outpatient follow-up and can have colonoscopy if indicated per his PCP. Additional Plan PT/OT is following. Subjective Date/time seen: 09/11/20 17:13 Mr. Pettit is a 75 y.o. male with PMH significant for dementia, hyperlipidemia, hypertension, and JACQUELIN who is seen in follow-up for rhabdomyolysis. He has no complaints. No
[2020-09-11 18:52] LABS: SARS-CoV-2 RNA PCR Negative
[2020-09-11] MEDS: SERTRALINE HCL 50 MG TABLET 100 MG PO (21:01)
[2020-09-11] MEDS: DONEPEZIL HCL 5 MG TABLET PO (21:01)
[2020-09-11] MEDS: traZODone HCL 50 MG TABLET PO (21:02)
[2020-09-11 23:11] VITALS: BP 113/58; PULSE 65; RESP 18; TEMP 36.6; O2SAT 93
[2020-09-12 05:35] VITALS: BP 110/48; PULSE 79; RESP 20; TEMP 36.6; O2SAT 95
[2020-09-12 06:48] LABS: Basophils Percent Auto 0.4 % (0.2-1.2); Eosinophils Absolute Auto 0.4 K/mm3 (0-0.3); Eosinophils Percent Auto 4.5 % (0-4.4); Hematocrit 30.2 % (42.0-52.0); Hemoglobin 9.9 g/dL (14.0-18.0); Immature Granulocyte Absolute 0.03 K/mm3 (0.00-0.031); Immature Granulocyte Percent A 0.4 % (0-0.5); Lymphocytes Absolute Auto 0.65 K/mm3 (0.9-3.2); Lymphocytes Percent Auto 8.2 % (18.3-44.2); Mean Corpuscular HGB Conc 32.8 g/dl (32-36); Mean Corpuscular Volume 94.7 fl (80-100); Mean Platelet Volume 10.5 fl (7.4-10.4); Monocytes Absolute Auto 0.8 K/mm3 (0.1-0.6); Monocytes Percent Auto 9.7 % (2.6-8.5); Neutrophils Absolute Auto 6.1 K/mm3 (1.3-6.7); Neutrophils Percent Auto 76.8 % (45.5-73.1); Platelet Count Result 181 k/mm3 (150-375); Red Blood Count 3.19 M/mm3 (4.6-6.20); Red Cell Distribution Width 14.2 % (11.5-14.5); White Blood Count 7.9 K/mm3 (4.5-10.0)
[2020-09-12 07:11] LABS: Alanine Aminotransferase 46 U/L (4-50); Albumin Level 3.2 g/dL (3.5-5.1); Alkaline Phosphatase 84 U/L (38-126); Anion Gap 5 mmol/L (8-16); Aspartate Amino Transferase 70 U/L (17-59); Bilirubin,Total 3.3 mg/dL (0.2-1.3); Blood Urea Nitrogen 19 mg/dL (9-20); Calcium 8.5 mg/dL (8.4-10.2); Carbon Dioxide 28 mmol/L (22-30); Chloride 102 mmol/L (98-107); Creatine Kinase 747 U/L (55-170); Estimated CRCL calculation 84 ml/min; Estimated Glomerular Filt Rate > 60; Glucose 106 mg/dL (75-110); Potassium 3.7 mmol/L (3.4-5.0); Sodium 135 mmol/L (137-145)
[2020-09-12] MEDS: FERROUS SULFATE 324 MG TABLET PO (10:12)
[2020-09-12] MEDS: CYANOCOBALAMIN 1,000 MCG TABLET 1000 MCG PO (10:12)
[2020-09-12] MEDS: APIXABAN 5 MG TABLET PO (10:12)
[2020-09-12] MEDS: MEMANTINE 10 MG TABLET PO (10:12)
[2020-09-12 10:13] VITALS: PULSE 79
[2020-09-12] MEDS: DOCUSATE SODIUM 100 MG CAPSULE PO (10:13)
[2020-09-12] MEDS: METOPROLOL SUCCINATE EXT REL 25 MG TABCR PO (10:13)
[2020-09-12] MEDS: TAMSULOSIN HCL 0.4 MG CAPSULE PO (10:13)
--- NOTE | 2020-09-12 11:12 | PM.DS ---
DS: Admitting Diagnosis Admitting Diagnosis Admitting Diagnosis: rhabdomyolysis DS: Discharge Diagnosis Discharge Diagnosis (1) Rhabdomyolysis: Qualifiers: Rhabdomyolysis type: non-traumatic Qualified Code(s): M62.82 - Rhabdomyolysis Code(s): M62.82 - Rhabdomyolysis Status: Acute Assessment and Plan: Likely traumatic due to fall. CK elevated at presentation and peaked at 2340 on 09/08, then gradually improved with IV fluid rehdration. Renal function appropriate. LFTs slightly elevated initially and improved. Urine output was appropriate. Atorvastatin was held, although felt to be solely related to trauma from fall. (2) Hypercholesterolemia: Code(s): E78.00 - Pure hypercholesterolemia, unspecified Status: Chronic Assessment and Plan: LFTs mildly elevated. Atorvastatin held until PCP follow up. (3) Hypertension: Code(s): I10 - Essential (primary) hypertension Status: Chronic Assessment and Plan: Blood pressures evaluated and remained stable. continue metoprolol. (4) Dementia: Qualifiers: Dementia behavioral disturbance: without behavioral disturbance Dementia type: unspecified type Qualified Code(s): F03.90 - Unspecified dementia without behavioral disturbance Code(s): F03.90 - Unspecified dementia without behavioral disturbance Status: Chronic Assessment and Plan: Chronic. He is at his baseline. Continue memantine and donepezil. Previous provider discussed with his concerns for possible Parkinson's given some signs exhibited. reports he is established with a neurologist and plans to follow-up as an outpatient (5) Current use of long term acute care registered nurse anticoagulation: Code(s): Z79.01 - correction (current) use of anticoagulants Status: Acute Assessment and Plan: Patient on long-term Eliquis for unclear indication. he will need to follow-up with prescribing provider to determine risks versus benefits of continuing this medication long-term given his fall risk. (6) JACQUELIN on CPAP: Code(s): G47.33 - Obstructive sleep apnea (adult) (pediatric); Z99.89 - Dependence on other enabling machines and devices Status: Chronic Assessment and Plan: Continue CPAP titrated to home settings. (7) (HFpEF) heart failure with preserved ejection fraction: Code(s): I50.30 - Unspecified diastolic (congestive) heart failure Status: Acute Assessment and Plan: CXR showed concern for possible developing infection or edema. Clinical picture does not suggest PNA. BNP was mildly elevated. Echocardiogram was ordered and demonstrates normal EF 65-70% with grade II diastolic dysfunction. He had increased edema / so IV fluids were discontinued. Swelling resolved. Continue MERARY hose and leg elevation. (8) Urinary retention: Code(s): R33.9 - Retention of urine, unspecified Status: Acute Assessment and Plan: Straight cath in the ER yielded 1000cc of urine. Bladder scan was repeated and the pt had 930cc residual so vogel was placed. Tamsulosin was added and BP will need to be monitored closely. He was seen by urology who recommends to keep the vogel in place and perform voiding trial in 1 week outpatient. His noted that he has had urinary retention for awhile prior to admission but was not formally evaluated yet. He will follow up with urology as an outpatient if he fails voiding trial. (9) Anemia: Code(s): D64.9 - Anemia, unspecified Status: Acute Assessment and Plan: Chronic and normocytic. Iron studies show iron deficiency. PO ferrous sulfate was started. Vitamin B12 is on the low end of normal and therefore PO cyanocobalamin was started. He will need outpatient follow-up and can have colonoscopy if indicated per his PCP. DS: Summary Hospital Course Reason for hospitalization: Fall Hospital Course: date of admission:
== END 2020-09-12 13:37 | DRG 565 ==
LOC: ANHED 10:23 → ANH2MED 12:48 → ANH3MEDSUR 09-08 10:30
PROVIDERS: Family Medicine; Nurse Practitioner; Physician Assistant; Admitting Provider Internal Medicine; Emergency Provider Emergency Medicine; Visit Provider Physician Assistant
DX: T79.6XXA Traumatic ischemia of muscle, initial encounter (principal); I50.30 Unspecified diastolic (congestive) heart failure; I11.0 Hypertensive heart disease with heart failure; Z20.828 Contact with and (suspected) exposure to other viral communicable diseases; W06.XXXA Fall from bed, initial encounter; D64.9 Anemia, unspecified; G30.9 Alzheimer's disease, unspecified; F02.80 Dementia in other diseases classified elsewhere, unspecified severity, without behavioral disturbance, psychotic disturbance, mood disturbance, and anxiety; N40.1 Benign prostatic hyperplasia with lower urinary tract symptoms; R33.8 Other retention of urine; E78.00 Pure hypercholesterolemia, unspecified; E78.5 Hyperlipidemia, unspecified; G47.33 Obstructive sleep apnea (adult) (pediatric); M16.11 Unilateral primary osteoarthritis, right hip; Z79.01 Long term (current) use of anticoagulants; Z79.82 Long term (current) use of aspirin; Z95.0 Presence of cardiac pacemaker
CPT/HCPCS: 36415; 70450; 71046; 72125; 73521; 74019; 80053; 81003; 82248; 82550; 82607; 82728; 82746; 83540; 83550; 83605; 83615; 83690; 83735; 83874; 83880; 84100; 84443; 85025; 85610; 85730; 86140; 87635; 93005; 93306; 96360; 96361; 97110; 97116; 97161; 97165; 97530; 97535; 99285; A9270; C9803; G0378; J1940; J3420; J7030; U0003

== ENCOUNTER 2021-01-04 17:06 | Inpatient (IN) | payer MEDICARE, OTHER, SELFPAY ==
[2021-01-04] VITALS (16 sets, daily range): BP systolic 65–102; BP diastolic 30–80; PULSE 93–144; RESP 18–31; TEMP 37.4–38.8; O2SAT 95–100
--- NOTE | ~2021-01-04 | US_ITS ---
EXAMINATION: US renal BI DATE: 01/05/2021 10:32 INDICATION: Obstructive uropathy of the kidney, ureter or bladder. TECHNIQUE: Multiple ultrasound grayscale images of the kidneys were obtained. COMPARISON: None. FINDINGS: The right kidney measures 11.1 x 5.2 x 4.6 cm. cm. 1.8 cm exophytic anechoic cyst at the upper pole o f the right kidney. The left kidney measures 10.0 x 5.9 x 3.9 cm. 2.0 cm exophytic cyst at the medial left kidney. The kidneys demonstrate normal echogenicity. There is no hydronephrosis in either kidne y. No stones identified. The bladder is decompressed around a Blake catheter which limits evaluation . IMPRESSION: 1. Bilateral renal cysts. Otherwise normal kidneys without hydronephrosis. Reviewed, dictated and finalized at location A.
--- NOTE | ~2021-01-04 | XR_ITS ---
EXAMINATION: XR chest 1V portable DATE: 01/04/2021 17:37 INDICATION: Shortness of breath. TECHNIQUE: A single frontal view of the chest was obtained. COMPARISON: Chest 2 views 09/07/2020, CT cervical spine 09/07/2020 FINDINGS: There is mild scarring at the lung apices. There is mild atelectasis versus scarring at the lung bases. No pleural effusion or pneumothorax. The heart size is normal. There is a left chest wal l pacer with leads in the right atrium and right ventricle. IMPRESSION: 1. Mild atelectasis versus scarring at the lung bases and mild scarring at the lung apices. Reviewed, dictated and finalized at location A.
--- NOTE | ~2021-01-04 | XR_ITS ---
EXAMINATION: XR chest 1V portable DATE: 01/04/2021 20:39 INDICATION: Unsuccessful right subclavian line placement. TECHNIQUE: A single frontal view of the chest was obtained. COMPARISON: Chest single view 01/04/2021 FINDINGS: There is mild scarring at right lung apex. There is mild atelectasis versus scarring at rig ht lung base. No pleural effusion or pneumothorax. The heart size is normal. There is a left chest wa ll pacer with leads in the right atrium and right ventricle. IMPRESSION: 1. Mild atelectasis versus scarring at right lung base and mild scarring at right lung apex. Reviewed, dictated and finalized at location A. IMPRESSION: 1. Mild atelectasis versus scarring at right lung base and mild scarring at rig ht lung apex.
--- NOTE | 2021-01-04 17:13 | ECG_ITS ---
Measurements Intervals [place] Rate: 138 P: [place]: 0 QRS: 186 QRSD: 109 T: -6 QT: 351 QTc: 533 Interpretive Statements ATRIAL FIBRILLATION WITH RAPID VENTRICULAR RESPONSE RIGHT AXIS DEVIATION INCOMPLETE RIGHT BUNDLE BRANCH BLOCK POOR R WAVE PROGRESSION, ANTERIOR LEADS BORDERLINE ST-T WAVE ABNORMALITY- ANTEROLAT/INF LEADS BASELINE ARTIFACT- AVF ABNORMAL ECG Electronically Signed On 01-05-2021 7:04:50 CDT by Monty Palumbo D.O.
[2021-01-04 17:30] LABS: Glucose Point of Care 154 (65-105)
--- NOTE | 2021-01-04 17:36 | PC.NURSE ---
Respiratory called to place pt on BIPAP per EDP Dr Aldaan VORShon>
[2021-01-04 17:49] LABS: Alveolar/Arterial O2 Gradient 355.6 mmHg; Fractional Inspired Oxygen 100 %; HCO3 ABG 14.4 mEq/l (22.0-26.0); Hematocrit 48.8 % (42.0-52.0); Hemoglobin 16.3 g/dL (14.0-18.0); Mean Corpuscular HGB Conc 33.4 g/dl (32-36); Mean Corpuscular Hemoglobin 30.9 pg (26-34); Mean Corpuscular Volume 92.6 fl (80-100); Mean Platelet Volume 11.2 fl (7.4-10.4); Oxygen Content ABG 23.3 %vol (16.0-22.0); Oxygen Saturation ABG 99.8 % (95.0-100.0); Oxyhemoglobin 98.1 % THb (90.0-100.0); PO2 ABG 333.8 mmHg (80.0-100.0); PO2 FiO2 Ratio Arterial Blood 3.34 %; Platelet Count Result 273 k/mm3 (150-375); Red Blood Count 5.27 M/mm3 (4.6-6.20); Red Cell Distribution Width 17.1 % (11.5-14.5); Total Hemoglobin 16.3 g/dL (12.0-18.0); White Blood Count 13.6 K/mm3 (4.5-10.0); pH ABG 7.403 (7.350-7.450)
[2021-01-04 17:52] LABS: Modified Allen's Test Pass; PCO2 ABG 23.6 mmHg (35.0-45.0); Site Drawn LEFT RADIAL
[2021-01-04 17:53] LABS: Device NON-INVASIVE VENT; Non-Invasive Expiratory Pressure 6 CMH2O; Non-Invasive Inspiratory Pressure 12 CMH2O; Non-Invasive Vent Rate 10 /MIN
[2021-01-04 17:57] LABS: Add Urine Microscopic? YES; Amorphous Sediment Urine Moderate; Appearance Urine Turbid (Clear); Bacteria Urine 4+ /hpf; Bilirubin Urine Negative (Negative); Blood Urine Negative (Negative); Color Urine Yellow (Yellow); Glucose Urine UA Negative (Negative); Ketones Urine Negative (Negative); Leukocyte Esterase Ur 2+ LEU/UL (Negative); Mucus Urine Heavy /lpf; Nitrate Urine Negative (Negative); Protein Urine 3+ mg/dL (Negative); RBC Urine >75 /hpf (0-2); Specific Grav Ur 1.024 (1.001-1.035); Urobilinogen Urine Negative mg/dL (<2.0); WBC Urine >75 /hpf
[2021-01-04 18:10] LABS: Lactic Acid Reflex 7.5 mmol/L (0.7-2.1)
[2021-01-04 18:11] LABS: Band Neutrophils Percent 21 % (0-6); Lymphocytes Absolute Manual 0.13 K/mm3 (1.1-4.5); Monocytes Absolute Manual 0.54 K/mm3 (0.1-0.90); Monocytes Percent Manual 4 % (3-9); Neutrophils Absolute Manual 12.92 K/mm3 (1.3-6.7); Neutrophils Percent Manual 74 % (46-73); Platelet Estimate Adequate (Adequate); Total Cells Counted 100
[2021-01-04 18:12] LABS: Anisocytosis 2+ (NORMAL)
[2021-01-04 18:13] LABS: Albumin Level 3.8 g/dL (3.5-5.1); Alkaline Phosphatase 80 U/L (38-126); Anion Gap 17 mmol/L (8-16); Aspartate Amino Transferase 34 U/L (17-59); Bilirubin,Total 3.8 mg/dL (0.2-1.3); Blood Urea Nitrogen 54 mg/dL (9-20); Calcium 9.4 mg/dL (8.4-10.2); Carbon Dioxide 15 mmol/L (22-30); Chloride 110 mmol/L (98-107); Estimated Glomerular Filt Rate 20; Glucose 136 mg/dL (75-110); Potassium 4.4 mmol/L (3.4-5.0); Sodium 142 mmol/L (137-145)
--- NOTE | 2021-01-04 18:15 | PC.NURSE ---
1 L NS infused (0 volume left in container), this infusion was initiated per EMS in route in continued on arrival to ED.
--- NOTE | 2021-01-04 18:17 | ED.GENADULT ---
HPI - General Adult General Chief complaint: Shortness of Breath/Dyspnea Stated complaint: ams, hypoxia Time Seen by Provider: 01/04/21 17:27 Source: family, EMS and RN notes reviewed Mode of arrival: EMS Limitations: dementia History of Present Illness HPI narrative: Patient is 75 years old white male brought to the emergency room by ambulance because of vomiting started this morning. Patient was weak enough yesterday to slip out of his wheelchair. History of dementia and parkinsonism. Patient's at the bedside telling me that patient is DNR and did not do any invasive procedure including central line.. Related Data Home Medications Medication Instructions Recorded Confirmed atorvastatin 40 mg PO HS 03/14/20 09/07/20 donepezil 5 mg PO HS 03/14/20 09/07/20 memantine 10 mg PO BID 03/14/20 09/07/20 metoprolol succinate 25 mg PO DAILY 03/14/20 09/07/20 sertraline 100 mg PO HS 03/14/20 09/07/20 Eliquis 5 mg PO BID 09/07/20 09/07/20 aspirin 81 mg PO DAILY 09/07/20 09/07/20 trazodone 50 mg PO HS 09/07/20 09/07/20 Allergies Allergy/AdvReac Type Severity Reaction Status Date / Time Penicillins Allergy Rash Verified 09/07/20 10:38 Quinazolinones Allergy Unknown Verified 09/07/20 13:17 Review of Systems Review of Systems: ROS unobtainable: Yes unobtainable due to mental status PMFSH Past Medical History Medical History Dementia Hypercholesterolemia Hypertension JACQUELIN on CPAP Surgical History Surgical History H/O shoulder replacement History of knee replacement Status post biventricular cardiac pacemaker insertion Family History Family History Mother Cancer Father Liver failure Social History Social History Social History: He tells me that he lives with his . other family members live with them as well to help them out. 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 He is a full code. He tells me that he has 2 children. He is retired From the [employer] as well as [employer]. according to the he smoked many many years ago With a lived in [place]. He is noted to be a full code. Smoking status: Never smoker Alcohol intake: never Substance use: never Gender identity (if verbalized by the patient): Male Spiritual care concerns: No Exam Narrative: Exam Narrative: General appearance: Well-developed, well-nourished, does not look in pain or distress, at the bedside Skin: Normal color, ankle and feet support bilaterally Head: Normocephalic, nontraumatic Eyes: Clear conjunctiva ENT: Oropharynx normal, ears normal, nose normal Neck: Supple, nontender Chest and respiratory: Airway patent, no respiratory distress, no accessory muscle use Heart: Tachycardia, irregular irregularity Abdomen: Soft, nontender, no organomegaly, quiet bowel sounds Vascular: Normal peripheral pulses, normal capillary refill. Neurologic: Alert. Course Course Emergency Course: Improving Consultations Consultation #1: Dr. ORTIZ Date: 01/04/21 Time: 19:28 Vital Signs Vital signs: Vital Signs Temperature 38.8 C H 01/04/21 17:15 Pulse Rate 141 H 01/04/21 17:15 Respiratory Rate 31 H 01/04/21 17:15 Blood Pressure 102/80 01/04/21 17:15 Pulse Oximetry 95 01/04/21 17:15 Temperature 38.8 C H 01/04/21 17:15 Pulse Rate 138 H 01/04/21 18:05 Respiratory Rate 30 H 01/04/21 18:05 Blood Pressure 96/52 L 01/04/21 18:05 Pulse Oximetry 96 01/04/21 18:05 Procedures Central Line Placement Right Femoral: Central Line Date: 01/04/21 Central Line Time: 20:28 Discussed w/ the patient/family/POA,the placement of a centra
[2021-01-04 18:21] LABS: Troponin I 0.433 ng/mL (0.000-0.034)
[2021-01-04 18:27] LABS: Alanine Aminotransferase 25 U/L (4-50)
[2021-01-04] MEDS: SODIUM CHLORIDE 0.9% IV 1,000 ML 999 ML IV CONT ×2 (18:29→19:18)
--- NOTE | 2021-01-04 19:14 | PC.NURSE ---
EDP made aware of pressure systolic 68, per VORShon Mclaughlin, start 3rd L of NS at this time.
--- NOTE | 2021-01-04 19:19 | PC.NURSE ---
Dr. Chang at bedside speaking with and discussing poc and possible placement of central line. Pt lying on cart in its lowest position and is supine. Bi-pap in place and pt with O2 saturation of 100% at this time. BP 84/30, HR 96 with a-fib, RR 21. Pt now has another liter of fluid that was ordered and is now flowing in by gravity. Labs obtained by pathology lab technician. Pt resting on cart and is responsive to voice and painful stimuli. states pt was in custodial this morning where staff noted he has poor appetite and eventually vomit. Pt then presented as sob. Pt presented with vogel cath in place of which states was initially placed in August; cath remains in place. Pt noted with left sided pacemaker. states pt is normally non- responsive and usually speaks only minimal words. states pt is presenting at his baseline. Call button and personal items within reach. advised to press call button for assistance.
--- NOTE | 2021-01-04 19:31 | PC.NURSE ---
EDMD presented to bedside.
[2021-01-04 19:48] LABS: INR 1.3; Partial Thromboplastin Time 28.1 SECONDS (22.3-36.8); Prothrombin Time 16.9 Seconds (11.1-14.7)
--- NOTE | 2021-01-04 19:57 | PC.NURSE ---
EDMD at bedside for central line placement. Attempt to place subclavian line in progress. Pt tolerating well.
--- NOTE | 2021-01-04 20:15 | PC.NURSE ---
Subclavian line placement unsuccessful. Right femoral triple lumen placed and successful. Pt tolerated well, remains alert and responsive to painful stimuli and voice, per baseline. EDMD gives verbal order for levophed. BP 84/56, HR 110, RR 25, O2 99%.
[2021-01-04] MEDS: SODIUM CHLORIDE 0.9% IV 1,000 ML 150 ML IV CONT (20:31)
--- NOTE | 2021-01-04 20:40 | PC.NURSE ---
CXR completed at bedside. remains at bedside and is aware of poc. All questions and concerns addressed. Awaiting levophed from pharmacy.
[2021-01-04 20:47] LABS: Reflex Lactic Acid Yes or No Add Lactic
[2021-01-04] MEDS: NOREPINEPHRINE 8 MG/D5W 250 ML 8 MG/250 ML BAG 9.38 MG IV CONT (21:21)
--- NOTE | 2021-01-04 21:59 | PC.NURSE ---
Report called to receiving nurse, Jason. Ok to send pt to floor.
--- NOTE | 2021-01-04 22:16 | ECG_ITS ---
Measurements Intervals [place] Rate: 105 P: [place]: 0 QRS: 235 QRSD: 111 T: -14 QT: 370 QTc: 489 Interpretive Statements ATRIAL FIBRILLATION WITH RAPID VENTRICULAR RESPONSE RIGHT AXIS DEVIATION LOW QRS VOLTAGE IN LIMB LEADS INCOMPLETE RIGHT BUNDLE BRANCH BLOCK POOR R WAVE PROGRESSION, ANTERIOR LEADS BORDERLINE ST-T WAVE ABNORMALITY- INF/LAT LEADS BASELINE ARTIFACT- I, III ABNORMAL ECG Electronically Signed On 01-05-2021 7:09:43 CDT by Monty Palumbo D.O.
--- NOTE | 2021-01-04 23:15 | PM.IMHP ---
H&P: HPI History of Present Illness Date/Time: 01/04/21 23:15 Chief Complaint: Nausea and vomiting++ Narrative: This is a 75 year old male with known Alzheimer's dementia on chronic anticoagulation w/ Eliquis for an unknown reason and presented to the hospital from the alf secondary to nausea and vomiting today. The patient presented to the hospital with a chronically indwelling vogel catheter which appears to have been placed in September due to urinary retention. While in the ER tonight the patient was found to be in rapid atrial fibrillation as well as septic shock. He was treated with IV fluid boluses and IV antibiotics. Routine labs demonstrated a lactic acid of 7.5, acute renal failuare with a Cr of 3.10, elevated WBC of 13,600. Source of septic shock appears to be urinary at this time. The patient was initiated on Bipap secondary to increased work of breathing. The patient is a DNR/DNI code status. The patient has expressive aphasia and his tells me that he appears to be at his mental baseline. ER provider has consulted Lap Cutter Truer Operator, Dr. Noriega, placed central IV line, and started vasopressors. No further history is obtainable from the patient. Review of Systems Review of Systems: All systems reviewed & are unremarkable except as noted in HPI and below PMFSH Past Medical History Medical History Dementia Hypercholesterolemia Hypertension JACQUELIN on CPAP Surgical History Surgical History H/O shoulder replacement History of knee replacement Status post biventricular cardiac pacemaker insertion Family History Family History Mother Cancer Father Liver failure Social History Social History Social History: He tells me that he lives with his . other family members live with them as well to help them out. She is a durable power manager retail for healthcare. He is a full code. He tells me that he has 2 children. He is retired From the [employer] as well as [employer]. according to the he smoked many many years ago With a lived in [place]. He is noted to be a full code. Smoking status: Never smoker Alcohol intake: never Substance use: never Gender identity (if verbalized by the patient): Male Spiritual care concerns: No Meds Home Medications and Allergies Home Medications Medication Instructions Recorded Confirmed Type donepezil 5 mg PO HS 03/14/20 01/04/21 History memantine 10 mg PO BID 03/14/20 01/04/21 History metoprolol succinate 50 mg PO DAILY 03/14/20 01/04/21 History sertraline 25 mg PO HS 03/14/20 01/04/21 History Eliquis 5 mg PO BID 09/07/20 01/04/21 History trazodone 100 mg PO HS 09/07/20 01/04/21 History cyanocobalamin (vitamin B-12) 1,000 mcg PO QAM #30 tablet 09/12/20 01/04/21 Rx [Vitamin B-12] ferrous sulfate 324 mg PO DAILY #30 tablet 09/12/20 01/04/21 Rx tamsulosin 0.4 mg PO QAM #30 cap 09/12/20 01/04/21 Rx betamethasone dipropionate 1 applic TOPICAL BID 01/04/21 01/04/21 History polyethylene glycol 3350 [Miralax] 17 g PO BID 01/04/21 01/04/21 History Allergies Allergy/AdvReac Type Severity Reaction Status Date / Time Penicillins Allergy Rash Verified 09/07/20 10:38 Quinazolinones Allergy Unknown Verified 09/07/20 13:17 Vital Signs Vital Signs - 24 hr 01/04/21 17:15 01/04/21 17:37 01/04/21 17:45 Temperature 38.8 C H Pulse Rate 141 H 144 H Respiratory Rate 31 H Blood Pressure 102/80 Pulse Oximetry 95 96 01/04/21 17:46 01/04/21 18:05 01/04/21 18:31 Temperature 37.5 C Pulse Rate 117 H 138 H 110 H Respiratory Rate 27 H 30 H 21 H Blood Pressure 96/52 L 73/39 L Pulse Oximetry 97 96 100 01/04/21 18:33 01/04/21 18:36 01/04/21 19:26 Temperature 37.5 C 37.4 C Pulse Rate 98 93 Respiratory Rate 20 19 Blood Pressure 84
[2021-01-04 23:35] LABS: Magnesium 1.4 mg/dL (1.6-2.3)
[2021-01-04] MEDS: NOREPINEPHRINE 8 MG/D5W 250 ML 8 MG/250 ML BAG 46.88 MG IV CONT (23:35)
[2021-01-04 23:40] LABS: Lactic Acid Reflex 6.5 mmol/L (0.7-2.1)
[2021-01-04 23:50] LABS: Troponin I 0.706 ng/mL (0.000-0.034)
[2021-01-04] MEDS: HYDROCORTISONE SODIUM SUCCINATE 100 MG/2 ML VIAL IV PUSH (23:59)
[2021-01-05] VITALS (26 sets, daily range): BP systolic 91–116; BP diastolic 30–60; PULSE 64–113; RESP 16–22; TEMP 37–38.7; O2SAT 93–99; BMI 23.6
[2021-01-05] LABS: Alveolar/Arterial O2 Gradient 154.8 mmHg; Base Excess ABG -5.2 mEq/l (+/-2.0); Fractional Inspired Oxygen 45 %; HCO3 ABG 18.4 mEq/l (22.0-26.0); Oxygen Content ABG 19.5 %vol (16.0-22.0); Oxygen Saturation ABG 98.6 % (95.0-100.0); Oxyhemoglobin 97.4 % THb (90.0-100.0); PCO2 ABG 30.8 mmHg (35.0-45.0); PO2 FiO2 Ratio Arterial Blood 2.91 %; Total Hemoglobin 14.1 g/dL (12.0-18.0); pH ABG 7.395 (7.350-7.450)
[2021-01-05 00:01] LABS: Device BIPAP; Modified Allen's Test Pass; Site Drawn LEFT RADIAL
[2021-01-05 00:02] LABS: Expiratory Pressure 6 cmH2O; Inspiratory Pressure 12 cmH2O
[2021-01-05] MEDS: SODIUM BICARBONATE 8.4% 50 MEQ/50 ML SYRINGE IV PUSH (00:07)
[2021-01-05] MEDS: VASOPRESSIN INJ 100 UNITS in DEXTROSE 5% 95 ML IV CONT (00:11)
[2021-01-05] MEDS: MAGNESIUM SULF 2 GM/WATER 50ML 2 GM/50 ML BAG IVPB (00:16)
--- NOTE | 2021-01-05 00:57 | WPDPROCEDUR ---
Procedures Arterial Line Arterial Line Date: 01/05/21 Arterial Line Time: 00:57 Patient/family/POA and/or understands and acknowledges the need to proceed with the arterial catheter insertion as an important element of the patient's clinical management.: Yes Patient Position: supine Aqueduct And Reservoir Keeper Prep: sterile gown, sterile gloves, mask and hat Site: right and radial Site Prep: chlorhexidine and sterile drape Skin Anesthesia: 1% lidocaine Technique used: ultrasound-guided Size (Gauge): 16 Length: 4.4 cm Closure/Dressing: suture, transparent dressing and securement product Patient tolerated procedure: well and no complications Complications: none Additional comments: Date of service was 01/05/2021 at 00:30 hrs
[2021-01-05] MEDS: SODIUM CHLORIDE 0.9% IV 1,000 ML 125 ML IV CONT ×3 (01:37→19:39)
[2021-01-05] MEDS: NOREPINEPHRINE 8 MG/D5W 250 ML 8 MG/250 ML BAG 56.25 MG IV CONT (03:54)
[2021-01-05 04:46] LABS: Hematocrit 39.2 % (42.0-52.0); Hemoglobin 12.7 g/dL (14.0-18.0); Mean Corpuscular HGB Conc 32.4 g/dl (32-36); Mean Corpuscular Hemoglobin 30.1 pg (26-34); Mean Corpuscular Volume 92.9 fl (80-100); Mean Platelet Volume 11.6 fl (7.4-10.4); Platelet Count Result 187 k/mm3 (150-375); Red Blood Count 4.22 M/mm3 (4.6-6.20); Red Cell Distribution Width 17.2 % (11.5-14.5); White Blood Count 22.5 K/mm3 (4.5-10.0)
[2021-01-05 04:56] LABS: Potassium 4.5 mmol/L (3.4-5.0)
[2021-01-05 05:22] LABS: Lactic Acid Reflex 4.8 mmol/L (0.7-2.1)
[2021-01-05 05:23] LABS: Anion Gap 10 mmol/L (8-16); Blood Urea Nitrogen 55 mg/dL (9-20); Calcium 8.1 mg/dL (8.4-10.2); Carbon Dioxide 16 mmol/L (22-30); Chloride 113 mmol/L (98-107); Estimated CRCL calculation 23 ml/min; Estimated Glomerular Filt Rate 23; Glucose 202 mg/dL (75-110); Magnesium 1.9 mg/dL (1.6-2.3); Sodium 139 mmol/L (137-145); Troponin I 0.459 ng/mL (0.000-0.034)
[2021-01-05 05:57] LABS: Band Neutrophils Percent 18 % (0-6); Lymphocytes Absolute Manual 1.12 K/mm3 (1.1-4.5); Monocytes Absolute Manual 1.35 K/mm3 (0.1-0.90); Monocytes Percent Manual 6 % (3-9); Neutrophils Absolute Manual 20.02 K/mm3 (1.3-6.7); Neutrophils Percent Manual 71 % (46-73); Platelet Estimate Adequate (Adequate); Total Cells Counted 100
[2021-01-05] MEDS: HYDROCORTISONE SODIUM SUCCINATE 100 MG/2 ML VIAL IV PUSH (06:06)
[2021-01-05] MEDS: INSULIN ASPART (*BKC) 100 UNITS/ML SUB-Q (06:06)
--- NOTE | 2021-01-05 06:08 | ECHO_ITS ---
Patient Info Name: Ranjit Pettit Age: 75 years : 1945 Gender: Male Ht: 72 in Wt: 186 lbs BSA: 2.08 m2 HR: 74 bpm BP: 101 / 52 mmHg Heart Rhythm: Atrial Fibrillation Technical Quality: Good Exam Date: 01/05/2021 8:02 AM Exam Location: [facility] Patient Status: Inpatient Admit Date: 01/04/2021 Staff Ordering Physician: Ki Chang MD Agriculture Teacher: Cm Mccarthy RDCS, RT Attending Provider: Joe Arrington MD Referring Physician: Charlene ARTHUR; Exam Type: CA echo doppler color flow Study Info Indications I48.1 - Persistent atrial fibrillation Strain analysis performed. Complete two-dimensional, color flow and Doppler transthoracic echocardiogram is performed with contrast to opacify the left ventricle and to improve the deliniation of the left ventricle endocardial borders. Summary 1. Strain analysis performed. 2. Complete two-dimensional, color flow and Doppler transthoracic echocardiogram is performed with contrast to opacify the left ventricle and to improve the deliniation of the left ventricle endocardial borders. 3. Left ventricular chamber dimension is normal. 4. Left ventricular systolic function is moderately reduced, estimated at 35-40%. 5. There is severely increased left ventricular wall thickness. 6. The left ventricular diastolic function is indeterminate. 7. Global longitudinal strain is abnormal at -9 %. 8. Right ventricular chamber dimension is mildly enlarged. 9. Right atrial chamber dimension is mildly enlarged. 10. Left atrial chamber dimension is moderately enlarged. 11. There is mild mitral valve regurgitation. 12. There is mild tricuspid valve regurgitation. 13. There is mild pulmonic regurgitation. Left Ventricle Left ventricular chamber dimension is normal. Left ventricular systolic function is moderately reduced, estimated at 35-40%. There is severely increased left ventricular wall thickness. The left ventricular diastolic function is indeterminate. Global longitudinal strain is abnormal at -9 %. Right Ventricle Right ventricular chamber dimension is mildly enlarged. Right ventricular systolic function is normal. Left Atria Left atrial chamber dimension is moderately enlarged. Right Atria Right atrial chamber dimension is mildly enlarged. Atrial Septum Intact interatrial septum visualized by color flow imaging. Aortic Valve The aortic valve is trileaflet. There is mild aortic valve sclerosis. There is no aortic valve stenosis. There is trace aortic valve regurgitation. Pulmonic Valve The pulmonic valve is normal. There is no pulmonic valve stenosis. There is mild pulmonic regurgitation. Mitral Valve The mitral valve has normal leaflets. There is no mitral valve stenosis. There is mild mitral valve regurgitation. Tricuspid Valve The tricuspid valve leaflets are normal. There is no significant tricuspid valve stenosis. There is mild tricuspid valve regurgitation. No pulmonary hypertension, estimated pulmonary arterial systolic pressure is 31 mmHg. Inferior Vena Cava Dilated inferior vena cava with <50% collapse upon inspiration consistent with elevated right atrial pressure, 15 mmHg. Aorta The aortic root size at the sinus of Valsalva is normal. The prox ascending aorta size is normal. Left Ventricular Outflow Tract Name Value Normal
[2021-01-05] MEDS: NOREPINEPHRINE 8 MG/D5W 250 ML 8 MG/250 ML BAG 52.5 MG IV CONT (08:06)
[2021-01-05] MEDS: TRIAMCINOLONE ACET 0.1% OINT 15 GM TUBE 1 APPLIC TOPICAL ×2 (08:08→17:15)
--- NOTE | 2021-01-05 08:28 | WPDCNINT ---
Assessment and Plan Assessment and plan (1) Acute respiratory failure: Qualifiers: Respiratory failure complication: unspecified whether with hypoxia or hypercapnia Qualified Code(s): J96.00 - Acute respiratory failure, unspecified whether with hypoxia or hypercapnia Code(s): J96.00 - Acute respiratory failure, unspecified whether with hypoxia or hypercapnia Status: Acute Assessment and Plan: Currently he is on BiPAP in seems to be stable on it. I will try to wean him BiPAP today and put him on oxygen supplementation. Continue BiPAP overnight as well as on a as needed basis for increased work of breathing. At baseline he uses CPAP at nighttime for his JACQUELIN. (2) Septic shock: Code(s): A41.9 - Sepsis, unspecified organism; R65.21 - Severe sepsis with septic shock Status: Acute Assessment and Plan: Currently on Levophed with high-dose and vasopressin. Continue to monitor hemodynamics closely. Wean pressors if tolerated. Follow cultures. Continue IV fluid resuscitation. He is currently on stress dose steroids as well. Start weaning steroids if tolerated and if his hemodynamics status improve. (3) Urinary tract infection: Qualifiers: Hematuria presence: without hematuria Urinary tract infection type: site unspecified Qualified Code(s): N39.0 - Urinary tract infection, site not specified Code(s): N39.0 - Urinary tract infection, site not specified Status: Acute Assessment and Plan: Currently he is on ceftriaxone and vancomycin. Follow cultures. Deescalate antibiotics based on further clinical data. Ultrasound of the kidney ureter better to rule out any obstructive uropathy. (4) Atrial fibrillation with rapid ventricular response: Code(s): I48.91 - Unspecified atrial fibrillation Status: Acute Assessment and Plan: He had an episode of atrial fibrillation with rapid ventricular rate. Currently rate is controlled. Cardiology has been consulted. Eliquis has been put on hold. I will put him on heparin drip at therapeutic dose until he can start taking p.o. medicine. (5) AMBER (acute kidney injury): Code(s): N17.9 - Acute kidney failure, unspecified Status: Acute Assessment and Plan: Renal parameters improving with creatinine of 2.7 today which is down from 3.1 yesterday. Continue IV fluid resuscitation. Strict intake output record and daily weight. Continue to monitor renal parameters and electrolytes. (6) JACQUELIN on CPAP: Code(s): G47.33 - Obstructive sleep apnea (adult) (pediatric); Z99.89 - Dependence on other enabling machines and devices Status: Chronic Assessment and Plan: He will remain on BiPAP for now. He can be transitioned to his baseline CPAP at nighttime once his respiratory status improved. (7) Dementia: Qualifiers: Dementia behavioral disturbance: without behavioral disturbance Dementia type: unspecified type Qualified Code(s): F03.90 - Unspecified dementia without behavioral disturbance Code(s): F03.90 - Unspecified dementia without behavioral disturbance Status: Chronic Assessment and Plan: Continue to monitor. Delirium precautions. Hold his p.o. donepezil and memantine for now but will be started once his mental and respiratory status improved he can take orally. (8) Hypertension: Code(s): I10 - Essential (primary) hypertension Status: Chronic Assessment and Plan: Hold antihypertensive for now. (9) Urinary retention: Code(s): R33.9 - Retention of urine, unspecified Status: Acute Assessment and Plan: He has chronic Blake's catheter since September for urinary retention. Blake's catheter has been changed. Additional Plan DVT prophylaxis with systemic GI prophylaxis with ranitidine Code status DNR DNI Discussed with the family and updated them about his c
[2021-01-05] MEDS: PERFLUTREN LIPID MICROSPHERES 1.5 ML VIAL DILUTED TO 10 ML TOTAL VOLUME IV PUSH (08:55)
[2021-01-05] MEDS: SODIUM CHLORIDE 0.9% IV 500 ML IV CONT (10:32)
[2021-01-05] MEDS: HEPARIN SODIUM 5,000 UNITS/ML VIAL 7000 UNITS IV PUSH (10:34)
[2021-01-05] MEDS: HEPARIN SOD/D5W 100 UNITS/ML 25,000 UNITS/250 ML BAG 15 UNITS IV CONT (10:35)
[2021-01-05 12:35] LABS: Glucose Point of Care 175 (65-105)
[2021-01-05] MEDS: HYDROCORTISONE SODIUM SUCCINATE 100 MG/2 ML VIAL 50 MG IV PUSH ×3 (12:46→23:36)
--- NOTE | 2021-01-05 12:53 | PM.CNCAR ---
Assessment and Plan Assessment and plan (1) Atrial fibrillation with rapid ventricular response: Code(s): I48.91 - Unspecified atrial fibrillation Status: Acute Assessment and Plan: Heart rate has came down with resuscitation. Resume his metoprolol and Eliquis when able and taking p.o.. No further workup is needed from a cardiac perspective (2) Chronic anticoagulation: Code(s): Z79.01 - care home (current) use of anticoagulants Status: Acute Assessment and Plan: Currently receiving heparin. Formally was on Eliquis (3) Septic shock: Code(s): A41.9 - Sepsis, unspecified organism; R65.21 - Severe sepsis with septic shock Status: Acute Assessment and Plan: On antibiotics (4) Hypertension: Code(s): I10 - Essential (primary) hypertension Status: Chronic Assessment and Plan: Now hypotensive because of sepsis. Continue pressors and wean as able (5) Dementia: Qualifiers: Dementia behavioral disturbance: without behavioral disturbance Dementia type: unspecified type Qualified Code(s): F03.90 - Unspecified dementia without behavioral disturbance Code(s): F03.90 - Unspecified dementia without behavioral disturbance Status: Chronic Assessment and Plan: Severe (6) Elevated troponin: Code(s): R77.8 - Other specified abnormalities of plasma proteins Status: Acute Assessment and Plan: Related to supply demand mismatch. Not related to ACS from acute plaque rupture History of Present Illness History of Present Illness Consult date/time: 01/05/21 12:53 Requesting physician: Ki Chang MD Consult reason: atrial fibrillation Reason For Visit: Sepsis, urinary tract infection, hypotension, DNR Narrative: Date of service 01/05/2021 Reason consultation: Atrial fibrillation, elevated troponins History: Patient is a 75-year-old male who resides in a nursing facility. He came to hospital because of nausea, vomiting. He was also found to be in atrial fibrillation with rapid ventricular response and septic shock. He was in acute renal failure. He has severe underlying dementia and today is essentially nonverbal. He also has expressive aphasia for hospitalist records. History is predominantly obtained by reviewing the chart. In the process of further evaluation troponins were drawn which were elevated. Cardiology consultation was therefore requested. Patient did have central lines placed and was started on pressor agents. His underlying sepsis is being treated with antibiotics. He is more stable and his heart rate has come down and is actually normal at this point. He is intermittently ventricular pacing as he does have a known indwelling permanent pacemaker. There is no documented syncope, chest pain, shortness of breath or edema. He is on chronic anticoagulation with Eliquis as an outpatient Review of Systems Review of Systems: All systems reviewed & are unremarkable except as noted in HPI and below Constitutional: Constitutional: Reports weakness Eyes: Eyes: Denies blurry vision ENT: Denies epistaxis Cardiovascular: Cardiovascular: Denies chest pain Respiratory: Respiratory: Denies hemoptysis Gastrointestinal: Gastrointestinal: Denies diarrhea Genitourinary: Genitourinary: Denies hematuria Musculoskeletal: Musculoskeletal: Denies joint swelling Integumentary/Breasts: Skin/Breast: Denies dry skin Neurologic: Reports Abnormal speech present and Reports confusion Psychiatric: Psychiatric: Denies anxiety Endocrine: Endocrine: Denies excessive sweating Hematologic/Lymphatic: Hematologic/Lymphatic: Denies easy bleeding Allergic/Immunologic: Allergic/Immunologic: Denies GI upset with certain foods PMFSH Past Medical History Medical History Dementia Hypercholesterolemia Hypertension JACQUELIN on CPAP Surgical History Surgical His
[2021-01-05] MEDS: NOREPINEPHRINE 8 MG/D5W 250 ML 8 MG/250 ML BAG 37.5 MG IV CONT (13:45)
[2021-01-05 17:17] LABS: Glucose Point of Care 165 (65-105)
[2021-01-05 17:50] LABS: Partial Thromboplastin Time > 200.0 SECONDS (22.3-36.8)
--- NOTE | 2021-01-05 18:39 | PM.IMPN ---
Progress Note: A&P Assessment and Plan (1) Septic shock: Code(s): A41.9 - Sepsis, unspecified organism; R65.21 - Severe sepsis with septic shock Status: Acute Assessment and Plan: Patient present with septic shock and respiratory failure. Patient is DNR. WBC up to 22K today. LA 7.5 on admisson but trending down. Source of sepsis appears to be urinary from his chronic indwelling Vogel. His Urine Cx and BCx growing GNB. Currently on Cefepime and Vancomycin. Continue for now but narrow abx in 1-2 days if no additional organisms grow. Currently on Levophed and VEHICLE DAMAGE APPRAISER and able to wean. Appreciate guide dog trainer input. (2) Complicated UTI (urinary tract infection): Code(s): N39.0 - Urinary tract infection, site not specified Status: Acute Assessment and Plan: Change out indwelling vogel catheter. Continue IV antibiotics. As above. (3) Acute respiratory failure: Qualifiers: Respiratory failure complication: unspecified whether with hypoxia or hypercapnia Qualified Code(s): J96.00 - Acute respiratory failure, unspecified whether with hypoxia or hypercapnia Code(s): J96.00 - Acute respiratory failure, unspecified whether with hypoxia or hypercapnia Status: Acute Assessment and Plan: Respiratory failure present on admission. ABG 7.40/24/334 on NIV. Acute respiratory failure was likely secondary to increased work of breathing from compensating for metabolic acidosis from septic shock. Was on BiPAP 15L on admission but able to be weaned down to NC at 3L this morning. He appears much more comfortable appearing. Continue to wean O2 as toelrated. (4) AMBER (acute kidney injury): Code(s): N17.9 - Acute kidney failure, unspecified Status: Acute Assessment and Plan: Cr 3.1 on admission. Baseline Cr normal at 0.7. Appears to be secondary to septic shock and hypoperfusion. The patient received 3L of NS IV bolus. Cr better today and UOP improved. Continue IV fluids. Monitor renal function and urine output. Avoid nephrotoxic agents. (5) Atrial fibrillation with rapid ventricular response: Code(s): I48.91 - Unspecified atrial fibrillation Status: Acute Assessment and Plan: The patient with AFib/RVR on admission. Treated appropriately for septic shock with IV fluids and vasopressors and heart rate has improved significantly. Did not need to start Amiodarone IV. Echo showing EF 35-40% with increased wall thickness and mildly enlarged RA and RV. The patient is known to already be anticoagulated on Eliquis so feel PE less likely. Continue telemetry. Appreciate Cardiology input. Resume Eliquis and Metoprolol when able. Continue Heparin (6) Elevated troponin: Code(s): R77.8 - Other specified abnormalities of plasma proteins Status: Acute Assessment and Plan: Troponin peaked at 0.70 felt related to the AFib/RVR from myocardial strain with increased demand. Appreciate Cardiology input. (7) Dementia: Qualifiers: Dementia behavioral disturbance: without behavioral disturbance Dementia type: unspecified type Qualified Code(s): F03.90 - Unspecified dementia without behavioral disturbance Code(s): F03.90 - Unspecified dementia without behavioral disturbance Status: Chronic Assessment and Plan: Mood stable. Aricept and Namenda on hold. Resume when more stable. (8) DVT prophylaxis: Code(s): Z29.9 - Encounter for prophylactic measures, unspecified Status: Acute Assessment and Plan: Heparin drip Subjective Date/time seen: 01/05/21 18:39 Interval history: 75yo male with dementia, HTN and urine retention with chronic indwelling Vogel here for nausea/vomiting adnd found to have septic shock Patient alert but nonverbal so unable to provide hx. Currently on hHeparin, Levophed 21mcg/min (down from 30) and VEHICLE DAMAGE APPRAISER. Exam Narrative: Exam Narrative: Rojas
[2021-01-05] MEDS: NOREPINEPHRINE 8 MG/D5W 250 ML 8 MG/250 ML BAG 30 MG IV CONT (21:42)
[2021-01-05 23:43] LABS: Glucose Point of Care 170 (65-105)
[2021-01-06] VITALS (20 sets, daily range): BP systolic 87–137; BP diastolic 45–67; PULSE 65–89; RESP 12–20; TEMP 36.6–37.1; O2SAT 92–100
[2021-01-06 00:18] LABS: Partial Thromboplastin Time > 200.0 SECONDS (22.3-36.8)
[2021-01-06] MEDS: SODIUM CHLORIDE 0.9% IV 1,000 ML 125 ML IV CONT (04:03)
[2021-01-06] MEDS: HYDROCORTISONE SODIUM SUCCINATE 100 MG/2 ML VIAL 50 MG IV PUSH ×3 (06:08→23:33)
[2021-01-06 07:03] LABS: Hematocrit 32.4 % (42.0-52.0); Hemoglobin 10.5 g/dL (14.0-18.0); Mean Corpuscular HGB Conc 32.4 g/dl (32-36); Mean Corpuscular Hemoglobin 30.8 pg (26-34); Mean Platelet Volume 12.2 fl (7.4-10.4); Platelet Count Result 118 k/mm3 (150-375); Red Blood Count 3.41 M/mm3 (4.6-6.20); Red Cell Distribution Width 17.7 % (11.5-14.5); White Blood Count 24.4 K/mm3 (4.5-10.0)
[2021-01-06 07:10] LABS: Lactic Acid Reflex 2.5 mmol/L (0.7-2.1)
[2021-01-06 07:13] LABS: Anion Gap 5 mmol/L (8-16); Blood Urea Nitrogen 61 mg/dL (9-20); Calcium 7.3 mg/dL (8.4-10.2); Carbon Dioxide 22 mmol/L (22-30); Chloride 112 mmol/L (98-107); Estimated CRCL calculation 44 ml/min; Estimated Glomerular Filt Rate 49; Glucose 178 mg/dL (75-110); Phosphorus 3.2 mg/dL (2.5-4.5); Potassium 4.5 mmol/L (3.4-5.0); Sodium 139 mmol/L (137-145)
[2021-01-06 07:22] LABS: Partial Thromboplastin Time 71.5 SECONDS (22.3-36.8)
[2021-01-06] MEDS: HEPARIN SOD/D5W 100 UNITS/ML 25,000 UNITS/250 ML BAG 9 UNITS IV CONT (07:55)
--- NOTE | 2021-01-06 09:34 | PM.IMPN ---
Progress Note: A&P Assessment and Plan (1) Septic shock: Code(s): A41.9 - Sepsis, unspecified organism; R65.21 - Severe sepsis with septic shock Status: Acute Assessment and Plan: Patient present with septic shock and respiratory failure and found to have septicemia. Patient is DNR. WBC up to 24K today but clinically improving felt related to the steroids; currently on Solu-Cortef. LA 7.5 on admission but trending down. Source of sepsis is urinary from his chronic indwelling Blake. His Urine Cx and BCx growing GNB (one BC bottle growing Proteus). Currently on Cefepime and Vancomycin. Continue for now but narrow abx in 1-2 days if no additional organisms grow. Currently on Levophed but EMPLOYEE REPRESENTATIVE able to be stopped. Consider removing arterial line. Appreciate textile designer input. Stop steroids in light of current infection? Discussed. UCx growing carbapenem resistant Enterobacteriaceae (Proteus). BCx also growing Proteus and suspect this radha be the same organism. However, patient clinically improving with current treatment. Will hold on starting Tobramycin and have ID consult since patient more stable and would wait final BCx results. Also can see if we can get ceftazidime-avibactam. ID consult. (2) Complicated UTI (urinary tract infection): Code(s): N39.0 - Urinary tract infection, site not specified Status: Acute Assessment and Plan: Continue IV antibiotics. As above. (3) Acute respiratory failure: Qualifiers: Respiratory failure complication: unspecified whether with hypoxia or hypercapnia Qualified Code(s): J96.00 - Acute respiratory failure, unspecified whether with hypoxia or hypercapnia Code(s): J96.00 - Acute respiratory failure, unspecified whether with hypoxia or hypercapnia Status: Acute Assessment and Plan: Respiratory failure present on admission. ABG 7.40/24/334 on NIV. Acute respiratory failure was likely secondary to increased work of breathing from compensating for metabolic acidosis from septic shock. Was on BiPAP 15L on admission but able to be weaned down to NC at 2L this morning. He appears much more comfortable appearing. Continue to wean O2 as tolerated. (4) AMBER (acute kidney injury): Code(s): N17.9 - Acute kidney failure, unspecified Status: Acute Assessment and Plan: Cr 3.1 on admission. Baseline Cr normal at 0.7. Appears to be secondary to septic shock and hypoperfusion. The patient received 3L of NS IV bolus. Cr better today at 1.4 but UOP was only 325 overnight. Continue IV fluids. Monitor renal function and urine output. Avoid nephrotoxic agents. (5) Hematuria: Code(s): R31.9 - Hematuria, unspecified Status: Acute Assessment and Plan: Blood tinged noted yesterday felt related to Blake trauma but now with grossly bloody urine. Still suspect Blake trauma but consider hemorrhagic cystitis. Start CBI. Consider Urology consult since patient will need to resume Eliquis at some point. (6) Atrial fibrillation with rapid ventricular response: Code(s): I48.91 - Unspecified atrial fibrillation Status: Acute Assessment and Plan: The patient with AFib/RVR on admission. Treated appropriately for septic shock with IV fluids and vasopressors and heart rate has improved significantly. Did not need to start Amiodarone IV. Echo showing EF 35-40% with increased wall thicnkness and mildly enlarged RA and RV. The patient is known to already be anticoagulated on Eliquis so feel PE less likely. Continue telemetry. Check TSH. Appreciate Cardiology input. Resume Eliquis once hematuria clears; Heparin off now. Resume Metoprolol when able. (7) Elevated troponin: Code(s): R77.8 - Other specified abnormalities of plasma proteins Status: Acute Assessment and Plan: Troponin peaked at 0.70 felt related to the AFib/RVR from myocardial strain with increased dem
[2021-01-06] MEDS: CALCIUM CHLOR 1,000MG/100ML NS 1,000 MG/100 ML BAG 100 MG IVPB (09:38)
[2021-01-06 09:51] LABS: Reflex Lactic Acid Yes or No Add Lactic
--- NOTE | 2021-01-06 11:13 | WPDINTPN ---
Progress Note: A&P Assessment and Plan (1) Acute respiratory failure: Qualifiers: Respiratory failure complication: unspecified whether with hypoxia or hypercapnia Qualified Code(s): J96.00 - Acute respiratory failure, unspecified whether with hypoxia or hypercapnia Code(s): J96.00 - Acute respiratory failure, unspecified whether with hypoxia or hypercapnia Status: Acute Assessment and Plan: He was weaned off from BiPAP during the daytime. He will remain on BiPAP at nighttime and on a as needed basis for increased work of breathing. He does have history of obstructive sleep apnea and uses CPAP. He can be transitioned to night CPAP in the next few days depending upon his clinical and respiratory status. Currently he is on 2 L of oxygen. Wean oxygen if tolerated. Keep oxygen saturation above 90%. (2) Septic shock: Code(s): A41.9 - Sepsis, unspecified organism; R65.21 - Severe sepsis with septic shock Status: Acute Assessment and Plan: His pressor requirements are trending down. He is down to Levophed of 4mcg. His vasopressin has been weaned off. Continue to monitor hemodynamics closely. Wean pressors if tolerated. Continue IV fluid resuscitation but will decrease the rate. He is currently on stress dose steroids and will start weaning steroid aggressively and stop it in the next 2 days based on his improvement in hemodynamics. (3) Urinary tract infection: Qualifiers: Hematuria presence: without hematuria Urinary tract infection type: site unspecified Qualified Code(s): N39.0 - Urinary tract infection, site not specified Code(s): N39.0 - Urinary tract infection, site not specified Status: Acute Assessment and Plan: Currently he is on cefepime. Vancomycin has been stopped. Follow cultures and sensitivity. Follow cultures have been sent to document resolution of bacteremia. Deescalate antibiotics based on further clinical data. Ultrasound of the kidney ureter bladder did not show any evidence of obstructive uropathy. (4) Atrial fibrillation with rapid ventricular response: Code(s): I48.91 - Unspecified atrial fibrillation Status: Acute Assessment and Plan: He had an episode of atrial fibrillation with rapid ventricular rate. Currently rate is controlled. Cardiology has been consulted with no recommendation for active intervention. Eliquis has been put on hold. Heparin drip has been started but that has been put on hold because of significant hematuria. (5) AMBER (acute kidney injury): Code(s): N17.9 - Acute kidney failure, unspecified Status: Acute Assessment and Plan: Renal parameters improving with creatinine of 1.4 today which is down from 2.4 yesterday. Continue IV fluid resuscitation. Strict intake output record and daily weight. Continue to monitor renal parameters and electrolytes. Ultrasound retroperitoneal does not show any evidence of obstructive uropathy. (6) JACQUELIN on CPAP: Code(s): G47.33 - Obstructive sleep apnea (adult) (pediatric); Z99.89 - Dependence on other enabling machines and devices Status: Chronic Assessment and Plan: He will remain on BiPAP for now at nighttime and on a as needed basis for increased work of breathing. He can be transitioned to his baseline CPAP at nighttime once his respiratory and clinical status improved. (7) Dementia: Qualifiers: Dementia behavioral disturbance: without behavioral disturbance Dementia type: unspecified type Qualified Code(s): F03.90 - Unspecified dementia without behavioral disturbance Code(s): F03.90 - Unspecified dementia without behavioral disturbance Status: Chronic Assessment and Plan: Continue to monitor. Delirium precautions. His oral donepezil and memantine has been resumed. (8) Hypertension: Code(s): I10 - Essential (primary) hypertensi
[2021-01-06] MEDS: TRIAMCINOLONE ACET 0.1% OINT 15 GM TUBE 1 APPLIC TOPICAL (12:33)
[2021-01-06 12:52] LABS: Glucose Point of Care 105 (65-105)
[2021-01-06 13:09] LABS: Lactic Acid 2.1 mmol/L (0.7-2.1)
[2021-01-06] MEDS: SODIUM CHLORIDE 0.9% IV 1,000 ML 75 ML IV CONT (16:43)
[2021-01-06 17:24] LABS: Glucose Point of Care 125 (65-105)
[2021-01-06 17:27] LABS: Hematocrit 30.1 % (42.0-52.0); Hemoglobin 9.7 g/dL (14.0-18.0)
[2021-01-06] MEDS: MEMANTINE 10 MG TABLET PO (20:29)
[2021-01-06] MEDS: SERTRALINE HCL 25 MG TABLET PO (20:29)
[2021-01-06] MEDS: DONEPEZIL HCL 5 MG TABLET PO (20:29)
[2021-01-06 23:55] LABS: Glucose Point of Care 117 (65-105)
[2021-01-07] VITALS (13 sets, daily range): BP systolic 86–113; BP diastolic 53–80; PULSE 71–92; RESP 14–26; TEMP 36.2–36.5; O2SAT 95–99
[2021-01-07] MEDS: HYDROCORTISONE SODIUM SUCCINATE 100 MG/2 ML VIAL 50 MG IV PUSH ×2 (05:38→21:14)
[2021-01-07] MEDS: SODIUM CHLORIDE 0.9% IV 1,000 ML 75 ML IV CONT (06:03)
[2021-01-07 06:06] LABS: Hematocrit 31.7 % (42.0-52.0); Hemoglobin 10.1 g/dL (14.0-18.0); Mean Corpuscular HGB Conc 31.9 g/dl (32-36); Mean Corpuscular Hemoglobin 30.2 pg (26-34); Mean Corpuscular Volume 94.9 fl (80-100); Mean Platelet Volume 12.4 fl (7.4-10.4); Platelet Count Result 98 k/mm3 (150-375); Red Blood Count 3.34 M/mm3 (4.6-6.20); Red Cell Distribution Width 17.6 % (11.5-14.5); White Blood Count 21.1 K/mm3 (4.5-10.0)
[2021-01-07 06:36] LABS: Anion Gap 5 mmol/L (8-16); Blood Urea Nitrogen 57 mg/dL (9-20); Calcium 8.4 mg/dL (8.4-10.2); Carbon Dioxide 23 mmol/L (22-30); Chloride 114 mmol/L (98-107); Estimated CRCL calculation 55 ml/min; Estimated Glomerular Filt Rate > 60; Glucose 117 mg/dL (75-110); Magnesium 2.2 mg/dL (1.6-2.3); Phosphorus 2.2 mg/dL (2.5-4.5); Potassium 3.9 mmol/L (3.4-5.0); Sodium 142 mmol/L (137-145)
[2021-01-07] MEDS: MEMANTINE 10 MG TABLET PO ×2 (08:11→21:14)
[2021-01-07] MEDS: POTASSIUM PHOS,M-BASIC-D-BASIC 20 MMOL in SODIUM CHLORIDE 0.9% IV 250 ML 62.5 MMOL IVPB (09:38)
[2021-01-07] MEDS: TRIAMCINOLONE ACET 0.1% OINT 15 GM TUBE 1 APPLIC TOPICAL ×2 (09:39→17:01)
--- NOTE | 2021-01-07 09:51 | WPDINTPN ---
Progress Note: A&P Assessment and Plan (1) Acute respiratory failure: Qualifiers: Respiratory failure complication: unspecified whether with hypoxia or hypercapnia Qualified Code(s): J96.00 - Acute respiratory failure, unspecified whether with hypoxia or hypercapnia Code(s): J96.00 - Acute respiratory failure, unspecified whether with hypoxia or hypercapnia Status: Acute Assessment and Plan: His respiratory status improved. Will stop BiPAP and put him on auto CPAP at nighttime which is his baseline. Currently he is on 2 L of oxygen. Wean oxygen if tolerated. Keep oxygen saturation above 90%. (2) Septic shock: Code(s): A41.9 - Sepsis, unspecified organism; R65.21 - Severe sepsis with septic shock Status: Acute Assessment and Plan: Continue to monitor hemodynamics closely. Pressors have been weaned off since yesterday and blood pressure seems to be within acceptable range with some occasional reading in 90s. He was on stress dose steroid which will be weaned down to 50 mg IV twice a day. It can be stopped in the a.m. if his hemodynamics remained stable. (3) Urinary tract infection: Qualifiers: Hematuria presence: without hematuria Urinary tract infection type: site unspecified Qualified Code(s): N39.0 - Urinary tract infection, site not specified Code(s): N39.0 - Urinary tract infection, site not specified Status: Acute Assessment and Plan: Continue cefepime as he has clinically responded very well to it with improvement in his hemodynamics and getting off pressors. Blood and urine culture grew Proteus mirabilis blood culture growing Klebsiella aerogenes/Enterobacter. Proteus mirabilis in blood is sensitive to cefepime ceftriaxone ertapenem and gentamicin. It is resistant to ampicillin ampicillin/sulbactam cephazolin ciprofloxacin and levofloxacin. It has intermediate sensitivity to imipenem. Proteus mirabilis an urine has intermediate sensitivity to cefepime and levofloxacin. It is sensitive to gentamicin tobramycin and Bactrim. It is resistant to ampicillin ampicillin/sulbactam cephazolin ceftriaxone ciprofloxacin and ertapenem. Follow blood culture have been negative so far. Infectious disease service has been consulted for their inputs. Ultrasound of the kidney ureter bladder did not show any evidence of obstructive uropathy. (4) Atrial fibrillation with rapid ventricular response: Code(s): I48.91 - Unspecified atrial fibrillation Status: Acute Assessment and Plan: He had an episode of atrial fibrillation with rapid ventricular rate. Currently rate is controlled. Cardiology has been consulted with no recommendation for active intervention. Eliquis has been put on hold. Heparin drip has been started but that has been put on hold because of significant hematuria. Resume Eliquis in next 1-2 days if no further hematuria reported. (5) AMBER (acute kidney injury): Code(s): N17.9 - Acute kidney failure, unspecified Status: Acute Assessment and Plan: Renal parameters improving with creatinine of 1.1 today which is down from 1.4 yesterday. Continue IV fluid resuscitation. Strict intake output record and daily weight. Continue to monitor renal parameters and electrolytes. Ultrasound retroperitoneal does not show any evidence of obstructive uropathy. (6) JACQUELIN on CPAP: Code(s): G47.33 - Obstructive sleep apnea (adult) (pediatric); Z99.89 - Dependence on other enabling machines and devices Status: Chronic Assessment and Plan: His respiratory status has improved now. I will stop BiPAP and put him on auto CPAP at nighttime. (7) Dementia: Qualifiers: Dementia behavioral disturbance: without behavioral disturbance Dementia type: unspecified type Qualified Code(s): F03.90 - Unspecified dementia without behavioral disturbance Code(s): F03.90 -
[2021-01-07 12:00] LABS: Glucose Point of Care 95 (65-105)
--- NOTE | 2021-01-07 12:58 | PM.IMPN ---
Progress Note: A&P Assessment and Plan (1) Septic shock: Code(s): A41.9 - Sepsis, unspecified organism; R65.21 - Severe sepsis with septic shock Status: Acute Assessment and Plan: Patient present with septic shock and respiratory failure and found to have septicemia. Patient is DNR. Pateint had central line placed and started on Levophed and MATERIALS TECHNICIAN. MATERIALS TECHNICIAN and Levophed both able to be stopped on 01/06. WBC was up to 24K but better at 21K today but clinically improving and felt some of the leukocytosis related to the steroids; weaning Solu-Cortef. LA 7.5 on admission but trending down. Source of sepsis is urinary from his chronic indwelling Blake. His Urine Cx growing Proteus mirabilis which is a carbapenem resistant Enterobacteriaceae sensitive to aminoglycosides. BCx also growing Proteus mirabilis but sensistive to Ertapenem and Cefepime and BCx growing Klebsiella aerogenes with sensitivities pending. Currently on Cefepime. Continue the same for now. ID consulted. Central line removed today. (2) Complicated UTI (urinary tract infection): Code(s): N39.0 - Urinary tract infection, site not specified Status: Acute Assessment and Plan: Continue IV antibiotics. As above. (3) Acute respiratory failure: Qualifiers: Respiratory failure complication: unspecified whether with hypoxia or hypercapnia Qualified Code(s): J96.00 - Acute respiratory failure, unspecified whether with hypoxia or hypercapnia Code(s): J96.00 - Acute respiratory failure, unspecified whether with hypoxia or hypercapnia Status: Acute Assessment and Plan: Respiratory failure present on admission. ABG 7.40/24/334 on NIV. Acute respiratory failure was likely secondary to increased work of breathing from compensating for metabolic acidosis from septic shock. Was on BiPAP 15L on admission but able to be weaned down to room air this morning. He appears much more comfortable. (4) AMBER (acute kidney injury): Code(s): N17.9 - Acute kidney failure, unspecified Status: Acute Assessment and Plan: Cr 3.1 on admission. Baseline Cr normal at 0.7. Renal US showing bilateral renal cysts o/w normal kidneys without hydronephrosis. AMBER appears to be secondary to septic shock and hypoperfusion. The patient received 3L of NS. Cr better today at 1.1. Monitor renal function and urine output. Avoid nephrotoxic agents. Stop IV fluids. (5) Hematuria: Code(s): R31.9 - Hematuria, unspecified Status: Acute Assessment and Plan: Blood tinged urine noted 4/2 felt related to Blake trauma but became grossly bloody on 4/ requiring CBI. Still suspect Blake trauma but consider hemorrhagic cystitis. Urine cleared quickly. Will stop CBI and monitor. Resume anti-coagulation in a few days if remains stable. Urology to se if recurrent bleeding. (6) Atrial fibrillation with rapid ventricular response: Code(s): I48.91 - Unspecified atrial fibrillation Status: Acute Assessment and Plan: The patient with AFib/RVR on admission. Patient was treated appropriately for septic shock with IV fluids and vasopressors and heart rate has improved significantly. Did not need to start Amiodarone IV. Echo showing EF 35-40% with increased wall thickness and mildly enlarged RA and RV. TSH normal. The patient is known to already be anticoagulated on Eliquis so feel PE less likely. Continue telemetry. Appreciate Cardiology input. Resume Eliquis once hematuria clears; Heparin off now. Resume Metoprolol when able. (7) Elevated troponin: Code(s): R77.8 - Other specified abnormalities of plasma proteins Status: Acute Assessment and Plan: Troponin peaked at 0.70 felt related to the septic shock and AFib/RVR with myocardial strain with increased demand. Appreciate Cardiology input. (8) Dementia: Qualifiers: Dementia behavioral disturbance: w
--- NOTE | 2021-01-07 15:09 | PCPTNOTE ---
The patient evaluation was not able to be completed on 01/07/21 due to time constraints. Will plan to perform evaluation tomorrow.
--- NOTE | 2021-01-07 15:50 | PC.NURSE ---
Patient transferred to room via hospital bed. Belongings with patient. Patient and oriented to room and policies.
--- NOTE | 2021-01-07 16:06 | PC.NURSE ---
This patient, Ranjit Pettit, was transferred to [ [facility] [id number]] on 01/07/21 at 1606. Personal belongings sent with patient. Report given to [ liliana]. Appropriate documentation sent with patient.
[2021-01-07] MEDS: SERTRALINE HCL 25 MG TABLET PO (21:14)
[2021-01-07] MEDS: DONEPEZIL HCL 5 MG TABLET PO (21:14)
[2021-01-08 02:35] VITALS: PULSE 69; RESP 19; O2SAT 93
[2021-01-08 05:43] VITALS: BP 121/78; PULSE 71; RESP 18; TEMP 35.9; O2SAT 100
[2021-01-08 05:51] LABS: Hematocrit 30.9 % (42.0-52.0); Hemoglobin 10.1 g/dL (14.0-18.0); Mean Corpuscular HGB Conc 32.7 g/dl (32-36); Mean Corpuscular Hemoglobin 30.5 pg (26-34); Mean Corpuscular Volume 93.4 fl (80-100); Mean Platelet Volume 12.7 fl (7.4-10.4); Platelet Count Result 96 k/mm3 (150-375); Red Blood Count 3.31 M/mm3 (4.6-6.20); Red Cell Distribution Width 17.4 % (11.5-14.5); White Blood Count 15.7 K/mm3 (4.5-10.0)
[2021-01-08 06:10] LABS: Anion Gap 6 mmol/L (8-16); Blood Urea Nitrogen 46 mg/dL (9-20); CRP 6.4 mg/dL (<1.0); Calcium 8.5 mg/dL (8.4-10.2); Carbon Dioxide 24 mmol/L (22-30); Chloride 116 mmol/L (98-107); Estimated CRCL calculation 60 ml/min; Estimated Glomerular Filt Rate > 60; Glucose 112 mg/dL (75-110); Magnesium 2.1 mg/dL (1.6-2.3); Phosphorus 2.5 mg/dL (2.5-4.5); Potassium 3.9 mmol/L (3.4-5.0); Sodium 146 mmol/L (137-145)
[2021-01-08] MEDS: MEMANTINE 10 MG TABLET PO ×2 (09:41→20:50)
[2021-01-08] MEDS: TRIAMCINOLONE ACET 0.1% OINT 15 GM TUBE 1 APPLIC TOPICAL ×2 (09:42→16:42)
[2021-01-08] MEDS: HYDROCORTISONE SODIUM SUCCINATE 100 MG/2 ML VIAL 50 MG IV PUSH (09:42)
[2021-01-08 10:13] VITALS: PULSE 89; RESP 18; O2SAT 96
--- NOTE | 2021-01-08 13:19 | PM.IMPN ---
Progress Note: A&P Assessment and Plan (1) Septic shock: Code(s): A41.9 - Sepsis, unspecified organism; R65.21 - Severe sepsis with septic shock Status: Acute Assessment and Plan: Patient present with septic shock and respiratory failure and found to have septicemia. Patient is DNR. Pateint had central line placed and started on Levophed and HVAC/R INSTRUCTOR. HVAC/R INSTRUCTOR and Levophed both able to be stopped on 01/06. WBC was up to 24K but better at 16K today but clinically improving and felt some of the leukocytosis related to the steroids. Continue to wean Solu-Cortef. LA 7.5 on admission but trending down. Source of sepsis is urinary from his chronic indwelling Blake. His Urine Cx growing Proteus mirabilis which is a carbapenem resistant Enterobacteriaceae sensitive to aminoglycosides (intermediate sensitivities to Cefepime). BCx also growing Proteus mirabilis but sensitive to Ertapenem and Cefepime and BCx also growing Klebsiella aerogenes sensitive to Cefepime. Currently on Cefepime. Continue the same for now since improving. ID consulted. (2) Complicated UTI (urinary tract infection): Code(s): N39.0 - Urinary tract infection, site not specified Status: Acute Assessment and Plan: Continue IV antibiotics. As above. (3) Acute respiratory failure: Qualifiers: Respiratory failure complication: unspecified whether with hypoxia or hypercapnia Qualified Code(s): J96.00 - Acute respiratory failure, unspecified whether with hypoxia or hypercapnia Code(s): J96.00 - Acute respiratory failure, unspecified whether with hypoxia or hypercapnia Status: Acute Assessment and Plan: Respiratory failure present on admission. ABG 7.40/24/334 on NIV. Acute respiratory failure was likely secondary to increased work of breathing from compensating for metabolic acidosis from septic shock. Was on BiPAP 15L on admission but able to be weaned down to room air yesterday morning. He appears much more comfortable. (4) AMBER (acute kidney injury): Code(s): N17.9 - Acute kidney failure, unspecified Status: Acute Assessment and Plan: Cr 3.1 on admission. Baseline Cr normal at 0.7. Renal US showing bilateral renal cysts o/w normal kidneys without hydronephrosis. AMBER appears to be secondary to septic shock and hypoperfusion. The patient received 3L of NS. Cr better today at 1.0. Monitor renal function and urine output. Avoid nephrotoxic agents. (5) Hematuria: Code(s): R31.9 - Hematuria, unspecified Status: Acute Assessment and Plan: Blood tinged urine noted 01/05 felt related to Blake trauma but became grossly bloody on 01/06 requiring CBI. Still suspect Blake trauma but consider hemorrhagic cystitis. Urine cleared quickly with CBI and this was stopped on 01/07/21. Resume anti-coagulation possibly tomorrow if urine remains clear. Urology to see if recurrent bleeding. (6) Atrial fibrillation with rapid ventricular response: Code(s): I48.91 - Unspecified atrial fibrillation Status: Acute Assessment and Plan: The patient with AFib/RVR on admission. Patient was treated appropriately for septic shock with IV fluids and vasopressors and heart rate has improved significantly. Did not need to start Amiodarone IV. Echo showing EF 35-40% with increased wall thickness and mildly enlarged RA and RV. TSH normal. The patient is known to already be anticoagulated on Eliquis so feel PE less likely. HR well controlled. Appreciate Cardiology input. Resume Eliquis tomorrow if urine remains clear. Resume Metoprolol when able. (7) Elevated troponin: Code(s): R77.8 - Other specified abnormalities of plasma proteins Status: Acute Assessment and Plan: Troponin peaked at 0.70 felt related to the septic shock and AFib/RVR with myocardial strain with increased demand. Appreciate Cardiology input. (8) Dementia: Qualifiers:
[2021-01-08 14:00] VITALS: BP 114/56; PULSE 76; RESP 16; TEMP 36.8; O2SAT 98
--- NOTE | 2021-01-08 16:23 | PCSTNOTE ---
The patient treatment was not able to be completed. Therapy goal is only for diet upgrade; patient tolerates current diet well and nurse Nedra does not feel that patient is able to upgrade at this time, therefore patient is not seen for a direct Speech session today. Will plan to continue treatment per plan of care and upgrade diet as tolerated.
--- NOTE | 2021-01-08 16:53 | WPDINFPN2 ---
Progress Note: A&P Assessment and Plan (1) Complicated UTI (urinary tract infection): Code(s): N39.0 - Urinary tract infection, site not specified Status: Acute Assessment and Plan: UTI REC Ceftaz-Avibactam # , through 01/17. Subjective Date/time seen: 01/08/21 16:53 Objective Data Vital Signs Vital Signs: Vital Signs - 24 hr 01/07/21 21:14 01/07/21 22:29 01/07/21 22:43 Temperature 36.5 C Pulse Rate 77 73 92 Respiratory Rate 16 26 H Blood Pressure 113/53 L Pulse Oximetry 98 96 97 01/08/21 02:35 01/08/21 05:43 01/08/21 10:13 Temperature 35.9 C L Pulse Rate 69 71 89 Respiratory Rate 19 18 18 Blood Pressure 121/78 Pulse Oximetry 93 100 96 01/08/21 14:00 Temperature 36.8 C Pulse Rate 76 Respiratory Rate 16 Blood Pressure 114/56 L Pulse Oximetry 98 Intake/Output Intake/Output: Intake & Output 01/05/21 01/06/21 01/07/21 01/08/21 23:59 23:59 23:59 23:59 Intake Total 4130 3480 3136.6667 630 Output Total 1900 2975 3700 1950 Balance 2230 505 -[phone] -1320 Meds/Results Medications: Active Medications Generic Name Dose Route Start Last Admin Trade Name Freq PRN Reason Stop Dose Admin Dextrose 12.5 gm 01/05/21 05:49 Dextrose 50% 25 Gm/50 Ml Syringe IV PUSH PRN PRN Hypoglycemia Protocol Donepezil HCl 5 mg 01/06/21 21:00 01/07/21 21:14 Donepezil Hcl 5 Mg Tablet PO 5 mg HS CARMELINA Administration Glucagon 1 mg 01/05/21 05:49 Glucagon For Inj 1 Mg Vial IM PRN PRN Hypoglycemia Protocol Hydrocortisone Sodium Succinate 25 mg 01/08/21 21:00 Hydrocortisone Sodium Succinate 100 Mg/2 Ml Vial IV PUSH Q12HR CARMELINA Dextrose 1,000 mls @ 100 mls/hr 01/05/21 05:49 Dextrose 5% 1,000 Ml IVPB PRN PRN Hypoglycemia Protocol Ceftazidime/Avibactam 2.5 gm/ 50 mls @ 25 mls/hr 01/08/21 17:00 01/08/21 16:42 Dextrose IVPB 25 mls/hr Q8H CARMELINA Administration Memantine 10 mg 01/06/21 10:00 01/08/21 09:41 Memantine 10 Mg Tablet PO 10 mg Q12HR CARMELINA Administration Ondansetron HCl 4 mg 01/04/21 18:31 Ondansetron Inj 4 Mg/2 Ml Vial IV PUSH Q4H PRN Nausea Sertraline HCl 25 mg 01/06/21 21:00 01/07/21 21:14 Sertraline Hcl 25 Mg Tablet PO 25 mg HS CARMELINA Administration Triamcinolone Acetonide 1 applic 01/05/21 09:00 01/08/21 16:42 Triamcinolone Acet 0.1% Oint 15 Gm Tube TOPICAL 02/04/21 09:01 1 applic BID CARMELINA Administration Radiology Results: ITS Impressions Chest X-Ray 01/04/21 20:43 IMPRESSION: 1. Mild atelectasis versus scarring at right lung base and mild scarring at right lung apex. Renal Ultrasound 01/05/21 10:34 IMPRESSION: 1. Bilateral renal cysts. Otherwise normal kidneys without hydronephrosis. Labs Labs: Laboratory Results - last 24 hr 01/08/21 01/08/21 05:24 05:24 WBC 15.7 H RBC 3.31 L Hgb 10.1 L Hct 30.9 L MCV 93.4 MCH 30.5 MCHC 32.7 RDW 17.4 H Plt Count 96 L MPV 12.7 H Sodium 146 H Potassium 3.9 Chloride 116 H Carbon Dioxide 24 Anion Gap 6 L BUN 46 H D Creatinine 1.00 Estim Creat Clear Calc 60 Estimated GFR > 60 Glucose 112 H Calcium 8.5 Phosphorus 2.5 Magnesium 2.1 C-Reactive Protein 6.4 H
[2021-01-08] MEDS: DONEPEZIL HCL 5 MG TABLET PO (20:50)
[2021-01-08] MEDS: SERTRALINE HCL 25 MG TABLET PO (20:50)
[2021-01-08] MEDS: HYDROCORTISONE SODIUM SUCCINATE 100 MG/2 ML VIAL 25 MG IV PUSH (20:50)
[2021-01-08 20:52] VITALS: BP 93/48; PULSE 72; RESP 14; TEMP 37.7; O2SAT 96
--- NOTE | 2021-01-08 22:24 | CONS_ITS ---
DATE OF CONSULTATION: 01/08/2021 REASON FOR CONSULTATION: UTI. HISTORY OF PRESENT ILLNESS: I was not notified of this consult until 1 hour ago. The patient cannot provide any history. A 75-year-old male, who has dementia and chronic Blake catheter. He was last here in the hospital in September, discharged on the . He has a chronic urinary retention and voiding trial was unsuccessful apparently in the office as he still has his catheter in place. He was brought here from his senior care with 1 day of nausea and vomiting. He had rapid atrial fibrillation as well as hypotension and shock. He has a central venous catheter placed and required vasopressors for several days. He has received while here cefepime, hydrocortisone, which is now on taper and earlier in his hospital stay vancomycin, ceftriaxone, gentamicin at various times. He has been transferred out to the floor from the Intensive Care Unit. He has not required any type of surgical intervention. His hospital course otherwise has been complicated by acute renal failure, elevated troponin, hematuria requiring CBI, respiratory insufficiency requiring positive-pressure ventilation. ALLERGIES: PENICILLIN CAUSED A RASH. HE HAS TOLERATED THE CEPHALOSPORINS. OTHERS NOT PERTINENT. PRESENT MEDICATIONS: The hydrocortisone continues on a tapering dose. HABITS: No tobacco. No alcohol. SOCIAL HISTORY: He is . No family at the bedside. 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 FAMILY HISTORY: Cancer and liver disease. PAST MEDICAL HISTORY: Biventricular pacemaker, knee and shoulder replacements, JACQUELIN, hypertension, dementia, hyperlipidemia. REVIEW OF SYSTEMS: 14-point review attempted, not obtainable from the patient due to aphasia and dementia. PHYSICAL EXAMINATION: GENERAL: This is an elderly male, who appears actual age. No acute distress. VITAL SIGNS: His temperature on arrival on January 04 was 38.8, and the next day on core temperatures as high as 38.6, not defervesced, 76, 16, 98%, 114/56. SKIN: Warm and dry. No generalized rash. No ulcerations. EENT: The conjunctivae appear clear. He will not cooperate for full exam of the mouth, but brief inspection is normal. No paranasal sinus erythema, edema, tenderness. NECK: No meningismus, mass, tenderness. LUNGS: Clear to auscultation and percussion. Good air entry. CARDIAC: Regular rate and rhythm. No murmur, gallop. ABDOMEN: Soft, nontender. No organomegaly. No masses. : Uncircumcised male. Normal phallus. No scrotal erythema or edema. Blake catheter draining clear yellow urine. No sediment. EXTREMITIES: 1+ nonpitting edema at the ankles. NEUROLOGIC: Increased muscle tone in all 4 extremities. Did not respond to verbal prompts. LABORATORY DATA: Blood cultures 2/2 sets, Proteus and Klebsiella. The Proteus is a CRE house supervisor. The Klebsiella is relatively susceptible on the other hand. Urine culture with the same Proteus, but not Klebsiella. Repeat blood cultures on January 06, no growth so far. Other laboratory, the white blood cell count was 13.6, now 15.7, hemoglobin 10.1, platelets are 96. No differential done recently. Urinalysis, multiple abnormalities, which are reviewed. He has hyponatremia. BUN 46, creatinine 1.0, glucose 112. CRP is 6.4. His Coronavirus assay from September was nonreactive. He has been vaccinated in October and November with Pfizer vaccine. RADIOLOGY: Renal ultrasound, renal cysts, otherwise normal. Echocardiogram with Doppler showed minimal valvular heart disease. No evidence of infection. His chest x-ray, atelectasis versus scarring. ASSESSMENT: 1. Polymicrobial bacteremia with infection, urinary source. I think the Klebsiella was not isolated from the urine as a urinary sour
[2021-01-09 05:29] VITALS: BP 103/57; PULSE 76; RESP 16; TEMP 36.8; O2SAT 97
[2021-01-09 05:50] LABS: Hematocrit 28.1 % (42.0-52.0); Hemoglobin 9.1 g/dL (14.0-18.0); Mean Corpuscular HGB Conc 32.4 g/dl (32-36); Mean Corpuscular Hemoglobin 30.4 pg (26-34); Mean Platelet Volume 12.3 fl (7.4-10.4); Platelet Count Result 100 k/mm3 (150-375); Red Blood Count 2.99 M/mm3 (4.6-6.20); Red Cell Distribution Width 17.2 % (11.5-14.5); White Blood Count 12.8 K/mm3 (4.5-10.0)
[2021-01-09 06:03] LABS: Anion Gap 4 mmol/L (8-16); Blood Urea Nitrogen 42 mg/dL (9-20); Calcium 8.4 mg/dL (8.4-10.2); Carbon Dioxide 25 mmol/L (22-30); Chloride 117 mmol/L (98-107); Estimated CRCL calculation 60 ml/min; Estimated Glomerular Filt Rate > 60; Glucose 97 mg/dL (75-110); Magnesium 2.1 mg/dL (1.6-2.3); Phosphorus 2.4 mg/dL (2.5-4.5); Potassium 3.4 mmol/L (3.4-5.0); Sodium 146 mmol/L (137-145)
[2021-01-09 08:46] LABS: Vancomycin Trough < 5.0 ug/mL (10.0-20.0)
[2021-01-09] MEDS: HYDROCORTISONE SODIUM SUCCINATE 100 MG/2 ML VIAL 25 MG IV PUSH ×2 (09:33→20:27)
[2021-01-09] MEDS: MEMANTINE 10 MG TABLET PO ×2 (09:33→20:27)
[2021-01-09 14:00] VITALS: BP 121/43; PULSE 66; RESP 14; TEMP 35.8; O2SAT 95
--- NOTE | 2021-01-09 15:32 | PC.NURSE ---
Spoke with Care Coordination about the possibility of pt needing a central line for antibiotic therapy. Asking if facility where he resides would be able to do this if he is to discharge with line and IV antibiotics. Natasha with care coordination stated she would be looking into it but the facility should be capable of this.
--- NOTE | 2021-01-09 16:09 | PCSTNOTE ---
The patient treatment was not able to be completed on 01/09/21. Patient is only being seen for appropriate diet upgrade and nursing indicated that patient would not be ready for this today. Therapist will contact nursing tomorrow, Friday to determine if patient is more appropriate for diet upgrade and will complete assessment when able.
--- NOTE | 2021-01-09 16:36 | PM.IMPN ---
Progress Note: A&P Assessment and Plan (1) Septic shock: Code(s): A41.9 - Sepsis, unspecified organism; R65.21 - Severe sepsis with septic shock Status: Acute Assessment and Plan: Patient present with septic shock and respiratory failure and found to have septicemia. Patient is DNR. Pateint had central line placed and started on Levophed and DIPPER FISH. DIPPER FISH and Levophed both able to be stopped on 01/06. WBC was up to 24K but better at 16K today but clinically improving and felt some of the leukocytosis related to the steroids. Continue to wean Solu-Cortef. LA 7.5 on admission but trending down. Source of sepsis is urinary from his chronic indwelling Blake. His Urine Cx growing Proteus mirabilis which is a carbapenem resistant Enterobacteriaceae sensitive to aminoglycosides (intermediate sensitivities to Cefepime). BCx also growing Proteus mirabilis but sensitive to Ertapenem and Cefepime and BCx also growing Klebsiella aerogenes sensitive to Cefepime. Currently on Cefepime. Continue the same for now since improving. ID consulted. id recommends iv antibiotics until . check with [facility] whether they are able to do that or not (2) Complicated UTI (urinary tract infection): Code(s): N39.0 - Urinary tract infection, site not specified Status: Acute Assessment and Plan: Continue IV antibiotics. As above. (3) Acute respiratory failure: Qualifiers: Respiratory failure complication: unspecified whether with hypoxia or hypercapnia Qualified Code(s): J96.00 - Acute respiratory failure, unspecified whether with hypoxia or hypercapnia Code(s): J96.00 - Acute respiratory failure, unspecified whether with hypoxia or hypercapnia Status: Acute Assessment and Plan: Respiratory failure present on admission. ABG 7.40/24/334 on NIV. Acute respiratory failure was likely secondary to increased work of breathing from compensating for metabolic acidosis from septic shock. Was on BiPAP 15L on admission but able to be weaned down to room air yesterday morning. He appears much more comfortable. (4) AMBER (acute kidney injury): Code(s): N17.9 - Acute kidney failure, unspecified Status: Acute Assessment and Plan: Cr 3.1 on admission. Baseline Cr normal at 0.7. Renal US showing bilateral renal cysts o/w normal kidneys without hydronephrosis. AMBER appears to be secondary to septic shock and hypoperfusion. The patient received 3L of NS. Cr better today at 1.0. Monitor renal function and urine output. Avoid nephrotoxic agents. (5) Hematuria: Code(s): R31.9 - Hematuria, unspecified Status: Acute Assessment and Plan: Blood tinged urine noted 01/05 felt related to Blake trauma but became grossly bloody on 01/06 requiring CBI. Still suspect Blake trauma but consider hemorrhagic cystitis. Urine cleared quickly with CBI and this was stopped on 01/07/21. Resume anti-coagulation possibly tomorrow if urine remains clear. Urology to see if recurrent bleeding. (6) Atrial fibrillation with rapid ventricular response: Code(s): I48.91 - Unspecified atrial fibrillation Status: Acute Assessment and Plan: The patient with AFib/RVR on admission. Patient was treated appropriately for septic shock with IV fluids and vasopressors and heart rate has improved significantly. Did not need to start Amiodarone IV. Echo showing EF 35-40% with increased wall thickness and mildly enlarged RA and RV. TSH normal. The patient is known to already be anticoagulated on Eliquis so feel PE less likely. HR well controlled. Appreciate Cardiology input. Resume Eliquis tomorrow if urine remains clear. Resume Metoprolol when able. (7) Elevated troponin: Code(s): R77.8 - Other specified abnormalities of plasma proteins Status: Acute Assessment and Plan: Troponin peaked at 0.70 felt related to the septic shock and AFib/RVR with myocardial strain
[2021-01-09] MEDS: TRIAMCINOLONE ACET 0.1% OINT 15 GM TUBE 1 APPLIC TOPICAL (17:06)
[2021-01-09] MEDS: APIXABAN 5 MG TABLET PO (18:11)
[2021-01-09 18:25] VITALS: BP 115/65; PULSE 73; RESP 20; TEMP 37.3; O2SAT 96
[2021-01-09] MEDS: SERTRALINE HCL 25 MG TABLET PO (20:27)
[2021-01-09] MEDS: DONEPEZIL HCL 5 MG TABLET PO (20:27)
[2021-01-09 22:05] VITALS: RESP 20
[2021-01-10 00:35] VITALS: BP 128/70; PULSE 64; RESP 12; TEMP 36.3; O2SAT 97
[2021-01-10 05:59] LABS: Basophils Percent Auto 0.1 % (0.2-1.2); Eosinophils Percent Auto 0.2 % (0-4.4); Hematocrit 31.1 % (42.0-52.0); Hemoglobin 9.8 g/dL (14.0-18.0); Immature Granulocyte Absolute 0.54 K/mm3 (0.00-0.031); Immature Granulocyte Percent A 4.2 % (0-0.5); Lymphocytes Absolute Auto 0.95 K/mm3 (0.9-3.2); Lymphocytes Percent Auto 7.3 % (18.3-44.2); Mean Corpuscular HGB Conc 31.5 g/dl (32-36); Mean Corpuscular Hemoglobin 29.6 pg (26-34); Monocytes Absolute Auto 1.1 K/mm3 (0.1-0.6); Monocytes Percent Auto 8.7 % (2.6-8.5); Neutrophils Absolute Auto 10.3 K/mm3 (1.3-6.7); Neutrophils Percent Auto 79.5 % (45.5-73.1); Nucleated Red Blood Cells Perc 0.3 % (0.0-0.2); Platelet Count Result 132 k/mm3 (150-375); Red Blood Count 3.31 M/mm3 (4.6-6.20); Red Cell Distribution Width 17.2 % (11.5-14.5)
[2021-01-10 06:09] LABS: Anion Gap 5 mmol/L (8-16); Blood Urea Nitrogen 37 mg/dL (9-20); Calcium 8.2 mg/dL (8.4-10.2); Carbon Dioxide 28 mmol/L (22-30); Chloride 116 mmol/L (98-107); Estimated CRCL calculation 66 ml/min; Estimated Glomerular Filt Rate > 60; Glucose 111 mg/dL (75-110); Magnesium 2.1 mg/dL (1.6-2.3); Phosphorus 3.3 mg/dL (2.5-4.5); Potassium 3.4 mmol/L (3.4-5.0); Sodium 149 mmol/L (137-145)
[2021-01-10 08:00] VITALS: BP 125/72; PULSE 73; RESP 18; TEMP 36.7; O2SAT 98
[2021-01-10] MEDS: HYDROCORTISONE SODIUM SUCCINATE 100 MG/2 ML VIAL 25 MG IV PUSH ×2 (09:29→20:08)
[2021-01-10] MEDS: APIXABAN 5 MG TABLET PO ×2 (09:29→17:31)
[2021-01-10] MEDS: FERROUS SULFATE 324 MG TABLET PO (09:29)
[2021-01-10 09:30] VITALS: PULSE 87
[2021-01-10] MEDS: METOPROLOL SUCCINATE EXT REL 50 MG TABCR PO (09:30)
[2021-01-10] MEDS: MEMANTINE 10 MG TABLET PO ×2 (09:30→20:08)
[2021-01-10] MEDS: TRIAMCINOLONE ACET 0.1% OINT 15 GM TUBE 1 APPLIC TOPICAL ×2 (09:31→17:31)
[2021-01-10] MEDS: TAMSULOSIN HCL 0.4 MG CAPSULE PO (09:31)
[2021-01-10] MEDS: POTASSIUM CHLORIDE 20 MEQ TABLET 40 MEQ PO (10:03)
[2021-01-10] MEDS: DEXTROSE 5% 1,000 ML 1,000 ML 100 ML IV CONT (10:04)
[2021-01-10] MEDS: CYANOCOBALAMIN 1,000 MCG TABLET 1000 MCG PO (10:59)
[2021-01-10] MEDS: LIDOCAINE HCL 1% LOCAL INJ 2 ML AMPUL 5 ML INFILTRATE (11:30)
--- NOTE | 2021-01-10 13:05 | PM.IMPN ---
Progress Note: A&P Assessment and Plan (1) Septic shock: Code(s): A41.9 - Sepsis, unspecified organism; R65.21 - Severe sepsis with septic shock Status: Acute Assessment and Plan: Patient present with septic shock and respiratory failure and found to have septicemia. Patient is DNR. Pateint had central line placed and started on Levophed and USER SUPPORT ANALYST SUPERVISOR. USER SUPPORT ANALYST SUPERVISOR and Levophed both able to be stopped on 01/06. WBC was up to 24K but better at 16K today but clinically improving and felt some of the leukocytosis related to the steroids. Continue to wean Solu-Cortef. LA 7.5 on admission but trending down. Source of sepsis is urinary from his chronic indwelling Blake. His Urine Cx growing Proteus mirabilis which is a carbapenem resistant Enterobacteriaceae sensitive to aminoglycosides (intermediate sensitivities to Cefepime). BCx also growing Proteus mirabilis but sensitive to Ertapenem and Cefepime and BCx also growing Klebsiella aerogenes sensitive to Cefepime. Currently on Cefepime. Continue the same for now since improving. ID consulted. id recommends iv antibiotics until . IA wll be aris to do that. will place a midline today. last blood culture repeated has been negative. (2) Complicated UTI (urinary tract infection): Code(s): N39.0 - Urinary tract infection, site not specified Status: Acute Assessment and Plan: Continue IV antibiotics. As above. (3) Acute respiratory failure: Qualifiers: Respiratory failure complication: unspecified whether with hypoxia or hypercapnia Qualified Code(s): J96.00 - Acute respiratory failure, unspecified whether with hypoxia or hypercapnia Code(s): J96.00 - Acute respiratory failure, unspecified whether with hypoxia or hypercapnia Status: Acute Assessment and Plan: Respiratory failure present on admission. ABG 7.40/24/334 on NIV. Acute respiratory failure was likely secondary to increased work of breathing from compensating for metabolic acidosis from septic shock. Was on BiPAP 15L on admission but able to be weaned down to room air yesterday morning. He appears much more comfortable. (4) AMBER (acute kidney injury): Code(s): N17.9 - Acute kidney failure, unspecified Status: Acute Assessment and Plan: Cr 3.1 on admission. Baseline Cr normal at 0.7. Renal US showing bilateral renal cysts o/w normal kidneys without hydronephrosis. AMBER appears to be secondary to septic shock and hypoperfusion. The patient received 3L of NS. Cr better today at 1.0. Monitor renal function and urine output. Avoid nephrotoxic agents. (5) Hematuria: Code(s): R31.9 - Hematuria, unspecified Status: Acute Assessment and Plan: Blood tinged urine noted 01/05 felt related to Blake trauma but became grossly bloody on 01/06 requiring CBI. Still suspect Blake trauma but consider hemorrhagic cystitis. Urine cleared quickly with CBI and this was stopped on 01/07/21. Resume anti-coagulation possibly tomorrow if urine remains clear. Urology to see if recurrent bleeding. (6) Atrial fibrillation with rapid ventricular response: Code(s): I48.91 - Unspecified atrial fibrillation Status: Acute Assessment and Plan: The patient with AFib/RVR on admission. Patient was treated appropriately for septic shock with IV fluids and vasopressors and heart rate has improved significantly. Did not need to start Amiodarone IV. Echo showing EF 35-40% with increased wall thickness and mildly enlarged RA and RV. TSH normal. The patient is known to already be anticoagulated on Eliquis so feel PE less likely. HR well controlled. Appreciate Cardiology input. Resume Eliquis tomorrow if urine remains clear. Resume Metoprolol when able. (7) Elevated troponin: Code(s): R77.8 - Other specified abnormalities of plasma proteins Status: Acute Assessment and Plan: Troponin peaked at 0.70 felt related to th
[2021-01-10] MEDS: SALINE LOCK FLUSH 10 ML IV PUSH ×2 (13:44→21:18)
[2021-01-10 14:07] VITALS: BP 118/53; PULSE 70; RESP 20; TEMP 36.9; O2SAT 96
--- NOTE | 2021-01-10 16:19 | PCSTNOTE ---
The patient treatment was not able to be completed as he is only being seen for diet upgrade. Remain on current diet at this time. Will check on patient again tomorrow.
[2021-01-10 17:07] LABS: SARS-CoV-2 RNA PCR Negative
[2021-01-10] MEDS: SALINE LOCK FLUSH 20 ML IV PUSH (17:35)
[2021-01-10 18:02] LABS: Anion Gap 3 mmol/L (8-16); Blood Urea Nitrogen 36 mg/dL (9-20); Calcium 8.3 mg/dL (8.4-10.2); Carbon Dioxide 30 mmol/L (22-30); Chloride 114 mmol/L (98-107); Estimated CRCL calculation 66 ml/min; Estimated Glomerular Filt Rate > 60; Glucose 119 mg/dL (75-110); Potassium 3.4 mmol/L (3.4-5.0); Sodium 147 mmol/L (137-145)
[2021-01-10 19:58] VITALS: BP 121/64; PULSE 70; RESP 20; TEMP 36.5; O2SAT 95
[2021-01-10] MEDS: SERTRALINE HCL 25 MG TABLET PO (20:07)
[2021-01-10] MEDS: DONEPEZIL HCL 5 MG TABLET PO (20:08)
[2021-01-11] MEDS: DEXTROSE 5% 1,000 ML 1,000 ML 100 ML IV CONT (02:09)
[2021-01-11 04:57] VITALS: BP 115/80; PULSE 72; RESP 16; TEMP 36.1; O2SAT 99
[2021-01-11] MEDS: SALINE LOCK FLUSH 10 ML IV PUSH ×2 (05:59→13:31)
[2021-01-11 06:21] LABS: Estimated CRCL calculation 74 ml/min; Estimated Glomerular Filt Rate > 60
[2021-01-11 06:24] LABS: Basophils Absolute Auto 0.1 K/mm3 (0.0-0.1); Basophils Percent Auto 0.4 % (0.2-1.2); Eosinophils Absolute Auto 0.1 K/mm3 (0-0.3); Eosinophils Percent Auto 0.8 % (0-4.4); Hematocrit 32.5 % (42.0-52.0); Hemoglobin 9.8 g/dL (14.0-18.0); Immature Granulocyte Absolute 0.31 K/mm3 (0.00-0.031); Immature Granulocyte Percent A 2.7 % (0-0.5); Lymphocytes Absolute Auto 1.15 K/mm3 (0.9-3.2); Lymphocytes Percent Auto 10.2 % (18.3-44.2); Mean Corpuscular HGB Conc 30.2 g/dl (32-36); Mean Corpuscular Hemoglobin 29.9 pg (26-34); Mean Corpuscular Volume 99.1 fl (80-100); Monocytes Absolute Auto 0.7 K/mm3 (0.1-0.6); Neutrophils Percent Auto 79.9 % (45.5-73.1); Nucleated Red Blood Cells Perc 0.2 % (0.0-0.2); Platelet Count Result 155 k/mm3 (150-375); Red Blood Count 3.28 M/mm3 (4.6-6.20); Red Cell Distribution Width 17.8 % (11.5-14.5); White Blood Count 11.3 K/mm3 (4.5-10.0)
[2021-01-11 08:36] VITALS: PULSE 66
[2021-01-11] MEDS: CYANOCOBALAMIN 1,000 MCG TABLET 1000 MCG PO (08:36)
[2021-01-11] MEDS: APIXABAN 5 MG TABLET PO (08:36)
[2021-01-11] MEDS: TAMSULOSIN HCL 0.4 MG CAPSULE PO (08:36)
[2021-01-11] MEDS: METOPROLOL SUCCINATE EXT REL 50 MG TABCR PO (08:36)
[2021-01-11] MEDS: FERROUS SULFATE 324 MG TABLET PO (08:36)
[2021-01-11] MEDS: MEMANTINE 10 MG TABLET PO (08:36)
[2021-01-11] MEDS: TRIAMCINOLONE ACET 0.1% OINT 15 GM TUBE 1 APPLIC TOPICAL (08:38)
[2021-01-11] MEDS: HYDROCORTISONE SODIUM SUCCINATE 100 MG/2 ML VIAL 25 MG IV PUSH (08:38)
[2021-01-11 08:48] LABS: Anion Gap 8 mmol/L (8-16); Blood Urea Nitrogen 32 mg/dL (9-20); Calcium 8.3 mg/dL (8.4-10.2); Carbon Dioxide 22 mmol/L (22-30); Chloride 116 mmol/L (98-107); Estimated CRCL calculation 74 ml/min; Estimated Glomerular Filt Rate > 60; Glucose 101 mg/dL (75-110); Potassium 3.5 mmol/L (3.4-5.0); Sodium 146 mmol/L (137-145)
--- NOTE | 2021-01-11 10:22 | PCSTNOTE ---
The patient treatment was not able to be completed on 01/11. Therapist had conference with nurse, Nedra, who continues to report patient is on optimum diet consistency of Minced and Moist; reports they still have to crush medicines or he will roll pieces around in his mouth and she is concerned about adding larger chunks to his diet. Liquid consistency is also appropriate. Discharge today.
--- NOTE | 2021-01-11 10:49 | PM.DS ---
DS: Admitting Diagnosis Admitting Diagnosis Admitting Diagnosis: Gen - NARD , not in acute distress, less reponsive today, hard of hearing, opens his eyes to verbal commands Chest - clear anteriorly to quiet respirations, nml RR CV - Irregularly irregular Abd - Soft, ND, +BS - Vogel secured draining clear yellow urine Ext - No pedal edema Neuro - Alert , non verbal, non communicative , sitting on the chair Psych - calm Skin - Warm and drysepsis DS: Discharge Diagnosis Discharge Diagnosis (1) Hypernatremia: Code(s): E87.0 - Hyperosmolality and hypernatremia Status: Acute (2) Hematuria: Code(s): R31.9 - Hematuria, unspecified Status: Acute (3) Elevated troponin: Code(s): R77.8 - Other specified abnormalities of plasma proteins Status: Acute (4) Chronic anticoagulation: Code(s): Z79.01 - 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 Status: Acute (5) Acute respiratory failure: Qualifiers: Respiratory failure complication: unspecified whether with hypoxia or hypercapnia Qualified Code(s): J96.00 - Acute respiratory failure, unspecified whether with hypoxia or hypercapnia Code(s): J96.00 - Acute respiratory failure, unspecified whether with hypoxia or hypercapnia Status: Acute (6) Leukocytosis: Qualifiers: Leukocytosis type: unspecified Qualified Code(s): D72.829 - Elevated white blood cell count, unspecified Code(s): D72.829 - Elevated white blood cell count, unspecified Status: Acute (7) Complicated UTI (urinary tract infection): Code(s): N39.0 - Urinary tract infection, site not specified Status: Acute (8) Septic shock: Code(s): A41.9 - Sepsis, unspecified organism; R65.21 - Severe sepsis with septic shock Status: Acute (9) Atrial fibrillation with rapid ventricular response: Code(s): I48.91 - Unspecified atrial fibrillation Status: Acute (10) (HFpEF) heart failure with preserved ejection fraction: Code(s): I50.30 - Unspecified diastolic (congestive) heart failure Status: Acute (11) Hypertension: Code(s): I10 - Essential (primary) hypertension Status: Chronic (12) Hypercholesterolemia: Code(s): E78.00 - Pure hypercholesterolemia, unspecified Status: Chronic (13) Dementia: Qualifiers: Dementia behavioral disturbance: without behavioral disturbance Dementia type: unspecified type Qualified Code(s): F03.90 - Unspecified dementia without behavioral disturbance Code(s): F03.90 - Unspecified dementia without behavioral disturbance Status: Chronic DS: Summary Hospital Course Reason for hospitalization: septic shock Hospital Course: # Septic shock: Patient present with septic shock and respiratory failure and found to have septicemia. Patient is DNR. Pateint had central line placed and started on Levophed and RECEIVING WORKER. RECEIVING WORKER and Levophed both able to be stopped on 01/06. WBC was up to 24K but better at 16K today but clinically improving and felt some of the leukocytosis related to the steroids. Continue to wean Solu-Cortef. stopped at the time of discahge. LA 7.5 on admission but trending down. Source of sepsis is urinary from his chronic indwelling Vogel. His Urine Cx growing Proteus mirabilis which is a carbapenem resistant Enterobacteriaceae sensitive to aminoglycosides (intermediate sensitivities to Cefepime). BCx also growing Proteus mirabilis but sensitive to Ertapenem and Cefepime and BCx also growing Klebsiella aerogenes sensitive to Cefepime. Currently on Cefepime. Continue the same for now since improving. ID consulted. id recommends iv antibiotics until . Midline placed for continuation of iv antibioics until january 17. # Complicated UTI (urinary tract infection): Continue IV antibiotics. As above. change vogel as scheduled at least monthly. # Acute respiratory failure: Respiratory failure present on admission
[2021-01-11] MEDS: polyethylene glycoL 3350 17 GM POWD.PACK PO (11:22)
== END 2021-01-11 13:50 | DRG 698 ==
LOC: ANHED 19:27 → ANHICU 01-05 06:58 → ANH3MED 01-09 07:43 → ANHICU 01-16 10:42
PROVIDERS: Emergency Medicine; Family Medicine; Internal Medicine; Internal Medicine Critical Care Medicine; Admitting Provider Internal Medicine; Emergency Provider Emergency Medicine; Visit Provider Internal Medicine
DX: T83.511A Infection and inflammatory reaction due to indwelling urethral catheter, initial encounter (principal); A41.9 Sepsis, unspecified organism; R65.21 Severe sepsis with septic shock; J96.00 Acute respiratory failure, unspecified whether with hypoxia or hypercapnia; R47.01 Aphasia; N17.9 Acute kidney failure, unspecified; E87.0 Hyperosmolality and hypernatremia; I50.30 Unspecified diastolic (congestive) heart failure; N39.0 Urinary tract infection, site not specified; R31.9 Hematuria, unspecified; I11.0 Hypertensive heart disease with heart failure; R33.9 Retention of urine, unspecified; Z20.822 Contact with and (suspected) exposure to COVID-19; I48.91 Unspecified atrial fibrillation; R77.8 Other specified abnormalities of plasma proteins; G30.9 Alzheimer's disease, unspecified; F02.80 Dementia in other diseases classified elsewhere, unspecified severity, without behavioral disturbance, psychotic disturbance, mood disturbance, and anxiety; G47.33 Obstructive sleep apnea (adult) (pediatric); E78.00 Pure hypercholesterolemia, unspecified; Z66 Do not resuscitate; Z79.01 Long term (current) use of anticoagulants; Z79.899 Other long term (current) drug therapy; Z87.891 Personal history of nicotine dependence; Z88.0 Allergy status to penicillin; Z88.8 Allergy status to other drugs, medicaments and biological substances; Z95.0 Presence of cardiac pacemaker; Z99.89 Dependence on other enabling machines and devices
CPT/HCPCS: 36415; 36556; 36569; 36600; 71045; 76775; 80048; 80053; 80202; 81001; 82565; 82805; 83605; 83735; 84100; 84443; 84484; 85014; 85018; 85025; 85027; 85610; 85730; 86140; 87040; 87077; 87086; 87088; 87186; 87804; 92526; 92610; 93005; 93306; 94002; 94003; 94660; 96365; 97110; 97161; 97165; 97535; 99285; A9270; C1751; C9803; J0131; J0692; J0696; J0714; J1644; J1720; J1815; J3370; J3475; J7030; J7040; J7050; J7070; Q9957; U0003; U0005